=== PATIENT | male | born 1970 | race Caucasian/White ===

== ENCOUNTER 2016-10-10 14:16 | Emergency (ER) | payer OTHER ==
[~2016-10-10] VITALS: Ht 185.4 cm; Wt 118.4 kg
[~2016-10-10 14:16] MED LIST: AMIT50TA PO; CIPR500T89 PO; CYCL10TA PO; FLAG500T PO; NAPR500T2 PO; NORC5TAB PO; OMEP20CA3 PO; PERC7.5T12 PO; SIME40TA PO; VITA100037 PO
[2016-10-10] MEDS ORDERED: ONDANSETRON 4MG/2ML VIAL (J2405) IV ONE (14:45)
[2016-10-10] MEDS ORDERED: NS 1,000 ML IV ONE (14:45)
[2016-10-10] MEDS ORDERED: ASPIRIN 81 MG CHEW TABLET PO ONE (14:45)
[2016-10-10] MEDS ORDERED: MORPHINE 4 MG/ML 1ML SYRINGE IV PRN (14:45)
[2016-10-10 15:09] LABS: BASO # 0.1 K/mm3 (0.0-0.2); BASO % 0.7 % (0.0-1.0); EOS # 0.2 K/mm3 (0.0-0.50); EOS % 1.9 % (0.0-3.0); LARGE UNSTAINED CELL # 0.1 K/mm3 (0.0-0.4); LARGE UNSTAINED CELL % 0.9 % (0.0-4.0); LYMPH # 1.9 K/mm3 (1.5-4.5); LYMPH % 19.9 % (24.0-44.0); MEAN CORPUSCULAR HEMOGLOBIN 27.8 pg (27.0-33.0); MEAN CORPUSCULAR HGB CONC 33.3 g/dl (32.0-36.5); MEAN CORPUSCULAR VOLUME 83.5 fl (80.0-96.0); MONO # 0.5 K/mm3 (0.0-0.8); MONO % 5.8 % (0.0-5.0); NEUTROPHILS # 6.5 K/mm3 (1.8-7.7); NEUTROPHILS % 70.9 % (36.0-66.0); PLATELET COUNT, AUTOMATED 261 k/mm3 (150-450); WHITE BLOOD COUNT 9.1 K/mm3 (4.0-10.0)
[2016-10-10 15:31] LABS: ALBUMIN/GLOBULIN RATIO 1.21 (1.00-1.93); ALKALINE PHOSPHATASE 46 U/L (45-117); ALT/SGPT 33 U/L (12-78); ANION GAP 8 MEQ/L (8-16); AST/SGOT 27 U/L (15-37); BILIRUBIN,DIRECT 0.1 MG/DL (0.0-0.2); BILIRUBIN,TOTAL 0.4 MG/DL (0.2-1.0); BLOOD UREA NITROGEN 17 MG/DL (7-18); CALCIUM LEVEL 8.7 MG/DL (8.5-10.1); CARBON DIOXIDE LEVEL 24 MEQ/L (21-32); CHLORIDE LEVEL 106 MEQ/L (98-107); CREATININE FOR GFR 1.11 MG/DL (0.70-1.30); FREE T4 1.45 NG/DL (0.76-1.46); GLOMERULAR FILTRATION RATE > 60.0 (>60); GLUCOSE, FASTING 107 MG/DL (70-105); POTASSIUM SERUM 3.8 MEQ/L (3.5-5.1); SODIUM LEVEL 138 MEQ/L (136-145); TOTAL PROTEIN 7.3 GM/DL (6.4-8.2)
[2016-10-10] MEDS ORDERED: ISOVUE-370 76% 100ML VIAL (Q9967) As Ordered ONE (15:59)
[2016-10-10 17:41] VITALS: BP 119/84
[2016-10-10] MEDS ORDERED: ASPI81TA85 PO (18:00)
[2016-10-10] MEDS ORDERED: OMEP40CA2 PO (18:05)
--- NOTE | 2016-10-11 06:40 | REP ---
Chest pain. COMPARISON: 08/25/2015. The technique utilized in obtaining the radiograph has magnified the cardiac silhouette and accentuated the interstitial markings. Cardiomediastinal silhouette and lung magana are unchanged. No acute patchy parenchymal opacities or pleural effusions have developed. There is no change in the osseous structures. IMPRESSION: Stable chest without evidence of acute cardiopulmonary disease. Signed by Wali May DO 10/11/2016 03:40 P
--- NOTE | 2016-10-11 07:01 | REP ---
Chest pain. No priors. CONTRAST: 100 mL Isovue 370. There is excellent visualization of the pulmonary arterial vasculature. There are no focal filling defects present that would be considered consistent with pulmonary emboli. There is no mediastinal or hilar adenopathy. There are no pleural or pericardial effusions. The imaged upper abdomen and imaged osseous structures are within normal limits. The thoracic aorta is within normal limits. Evaluation of the lung magana show a vague nodule in the right upper lobe which measures 4 mm. IMPRESSION: No pulmonary embolus. 4 mm right upper lobe nodule. According to the revised Fleischner Society criteria, this represents a category 2 lesion for which 1 year followup is recommended. Signed by Wali May DO 10/11/2016 03:44 P
--- NOTE | 2016-10-12 04:44 | ECGEPIP ---
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
--- NOTE | 2016-10-12 04:45 | ECGEPIP ---
Stationary ECG Study 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
--- NOTE | 2016-10-13 09:17 | ED PDOC ---
Post-Departure Follow-Up cta faxed formal report to dr norton. also [facility] faxed formal report for fu Charla Sorenson MD Oct 13, 2016 09:17
== END 2016-10-10 18:19 | disposition home or self-care (01) ==
LOC: M ED 14:58
DX: R07.9 Chest pain, unspecified (principal); M54.9 Dorsalgia, unspecified; R91.1 Solitary pulmonary nodule; F32.9 Major depressive disorder, single episode, unspecified; F41.9 Anxiety disorder, unspecified; M50.30 Other cervical disc degeneration, unspecified cervical region; M51.9 Unspecified thoracic, thoracolumbar and lumbosacral intervertebral disc disorder; F17.200 Nicotine dependence, unspecified, uncomplicated; Z82.49 Family history of ischemic heart disease and other diseases of the circulatory system
CPT/HCPCS: 36415; 71010; 71275; 80048; 80076; 82550; 82553; 83690; 84439; 84443; 85025; 85379; 93005; 93041; 94760; 96361; 96374; 96375; 99285; J2405; Q9967

== ENCOUNTER 2017-03-10 07:58 | Emergency (ER) | payer OTHER ==
[~2017-03-10] VITALS: Ht 185.4 cm; Wt 120.5 kg
[~2017-03-10 07:58] MED LIST changes: +ASPI81TA85 PO; +OMEP40CA2 PO; -VITA100037 PO; +VITA100067 PO
[2017-03-10] MEDS ORDERED: AZEL0.1S3 (08:07)
[2017-03-10] MEDS ORDERED: KETOROLAC 30 MG/ML VIAL (J1885) IV ONE (08:30)
[2017-03-10 08:53] LABS: BASO % 0.3 % (0.0-1.0); EOS % 0.5 % (0.0-3.0); LARGE UNSTAINED CELL # 0.1 K/mm3 (0.0-0.4); LARGE UNSTAINED CELL % 1.8 % (0.0-4.0); LYMPH # 0.8 K/mm3 (1.5-4.5); LYMPH % 9.7 % (24.0-44.0); MEAN CORPUSCULAR HEMOGLOBIN 27.9 pg (27.0-33.0); MEAN CORPUSCULAR HGB CONC 33.3 g/dl (32.0-36.5); MEAN CORPUSCULAR VOLUME 83.7 fl (80.0-96.0); MONO # 0.5 K/mm3 (0.0-0.8); MONO % 6.2 % (0.0-5.0); NEUTROPHILS # 6.3 K/mm3 (1.8-7.7); NEUTROPHILS % 81.4 % (36.0-66.0); PLATELET COUNT, AUTOMATED 302 k/mm3 (150-450); RED CELL DISTRIBUTION WIDTH 13.4 % (11.5-14.5); WHITE BLOOD COUNT 7.7 K/mm3 (4.0-10.0)
--- NOTE | 2017-03-10 09:03 | REP ---
Clinical: Left renal colic. Comparison: 07/15/2012. Findings: Mild acute left-sided obstructive uropathy including perinephric stranding, hydroureteronephrosis and periureteral stranding with 2 mm and 4 mm calculi in the distal left ureter (images 119 - 122). The right kidney demonstrates 2 mm nonobstructing renal stone. The bladder is unremarkable. Prostate gland is within normal limits. Pericolonic stranding and adenopathy along with possible colonic mass lesion is identified at the hepatic flexure/proximal transverse colon (images 49 - 67) which is concerning for neoplasm requires attention. Liver, spleen, pancreas, gallbladder, bilateral adrenal glands and the remainder of the small large bowel is grossly unremarkable. Normal terminal ileum and appendix identified in the right lower quadrant. Sigmoid diverticula noted without acute diverticulitis. Pelvis demonstrates a fat containing right inguinal hernia. Bladder and prostate gland are within normal limits. No ascites. No free air. Abdominal aorta without aneurysm. Musculoskeletal structures demonstrate degenerative changes. Impression: 1. Acute left-sided obstructive uropathy with 2 mm and 4 mm obstructing calculi in the distal left ureter along with 2 mm nonobstructing right renal stone. 2. Findings described above involving the hepatic flexure/proximal transverse colon concerning for neoplasm and requires further investigation. Differential diagnosis would include focal colitis. Signed by Young Aguilera MD 03/10/2017 08:55 A
[2017-03-10 09:16] LABS: ALBUMIN 3.7 GM/DL (3.2-5.2); ALBUMIN/GLOBULIN RATIO 0.95 (1.00-1.93); ALKALINE PHOSPHATASE 53 U/L (45-117); ALT/SGPT 24 U/L (12-78); AMYLASE 46 U/L (25-115); ANION GAP 10 MEQ/L (8-16); AST/SGOT 18 U/L (15-37); BILIRUBIN,DIRECT < 0.1 MG/DL (0.0-0.2); BILIRUBIN,TOTAL 0.4 MG/DL (0.2-1.0); BLOOD UREA NITROGEN 21 MG/DL (7-18); CALCIUM LEVEL 8.9 MG/DL (8.5-10.1); CARBON DIOXIDE LEVEL 24 MEQ/L (21-32); CHLORIDE LEVEL 109 MEQ/L (98-107); GLOMERULAR FILTRATION RATE 49.6 (>60); GLUCOSE, FASTING 116 MG/DL (70-105); POTASSIUM SERUM 4.2 MEQ/L (3.5-5.1); SODIUM LEVEL 143 MEQ/L (136-145); TOTAL PROTEIN 7.6 GM/DL (6.4-8.2)
[2017-03-10] MEDS ORDERED: KETO10TAB PO (09:17)
[2017-03-10] MEDS ORDERED: FLOM5CAP PO (09:17)
[2017-03-10 09:38] LABS: YEAST LIKE CELL URINE AUTO SMALL
[2017-03-10] MEDS ORDERED: ZOFR4TAB3 PO (09:57)
[2017-03-10 09:58] VITALS: BP 134/75
[2017-03-11] MEDS ORDERED: ASPI1TAB PO (14:03)
[2017-03-11] MEDS ORDERED: OMEP20CA3 PO (14:16)
[2017-03-11] MEDS ORDERED: MULT1TAB10 PO (14:16)
[2017-03-25] MEDS ORDERED: FLON1SPR (08:37)
== END 2017-03-10 09:59 | disposition home or self-care (01) ==
LOC: M ED 07:58
DX: N20.1 Calculus of ureter (principal); R93.3 Abnormal findings on diagnostic imaging of other parts of digestive tract; E66.9 Obesity, unspecified; K21.9 Gastro-esophageal reflux disease without esophagitis; J30.2 Other seasonal allergic rhinitis; K85.90 Acute pancreatitis without necrosis or infection, unspecified; F17.200 Nicotine dependence, unspecified, uncomplicated; Z82.49 Family history of ischemic heart disease and other diseases of the circulatory system; Z79.899 Other long term (current) drug therapy
CPT/HCPCS: 36415; 74176; 80048; 80076; 81001; 82150; 83690; 85025; 96374; 99283; J1885

== ENCOUNTER 2017-03-14 13:17 | Outpatient (CLI) | payer OTHER ==
[~2017-03-14] VITALS: Ht 185.4 cm; Wt 114.8 kg
[~2017-03-14 13:17] MED LIST changes: +ASPI1TAB PO; +AZEL0.1S3; +FLOM5CAP PO; +KETO10TAB PO; +MULT1TAB10 PO; +ZOFR4TAB3 PO
[2017-03-14] MEDS ORDERED: NS 1,000 ML IV SCH (13:30)
[2017-03-14] MEDS ORDERED: LIDOCAINE 2% INJ 100 MG/5 ML SDV (FOR ANES.) As Ordered ONE (14:58)
[2017-03-14] MEDS ORDERED: PROPOFOL 200 MG/20 ML VIAL As Ordered ONE ×3 (14:58→15:28)
--- NOTE | 2017-03-14 15:29 | ROOR ---
Patient Name: Waldemar Collins Procedure Date: 03/14/2017 2:58 PM Date of : 1970 Age: 46 Room: [facility] Gender: Male Note Status: Finalized Procedure: Colonoscopy Indications: Abnormal CT of the GI tract Providers: DO Yumiko De La Paz MD: Domingo Luque MD Requesting Provider: Medicines: Propofol per Anesthesia Complications: No immediate complications. Procedure: Pre-Anesthesia Assessment: - Prior to the procedure, a History and Physical was performed, and patient medications and allergies were reviewed. The patient is competent. The risks and benefits of the procedure and the sedation options and risks were discussed with the patient. All questions were answered and informed consent was obtained. Patient identification and proposed procedure were verified by the physician, the nurse, the head of quality and the gate technician in the endoscopy suite. Mental Status Examination: alert and oriented. Airway Examination: normal oropharyngeal airway and neck mobility. Respiratory Examination: clear to auscultation. CV Examination: normal. Prophylactic Antibiotics: The patient does not require prophylactic antibiotics. Prior Anticoagulants: The patient has taken no previous anticoagulant or antiplatelet agents. ASA Grade Assessment: II - A patient with mild systemic disease. After reviewing the risks and benefits, the patient was deemed in satisfactory condition to undergo the procedure. The anesthesia plan was to use monitored anesthesia care (MAC). Immediately prior to administration of medications, the patient was re-assessed for adequacy to receive sedatives. The heart rate, respiratory rate, oxygen saturations, blood pressure, adequacy of pulmonary ventilation, and response to care were monitored throughout the procedure. The physical status of the patient was re-assessed after the procedure. The Colonoscope was introduced through the anus and advanced to the cecum, identified by appendiceal orifice and ileocecal valve. The colonoscopy was performed without difficulty. The patient tolerated the procedure well. Findings: Multiple small-mouthed diverticula were found in the sigmoid colon. Two semi-pedunculated polyps were found in the sigmoid colon. The polyps were 5 to 8 mm in size. These polyps were removed with a cold biopsy forceps. Resection and retrieval were complete. Estimated blood loss was minimal. A fungating partially obstructing large mass was found at the hepatic flexure. The mass was circumferential. Oozing was present. Biopsies were taken with a cold forceps for histology. Area was tattooed with an injection of 4 mL of Spot (carbon black). The exam was otherwise without abnormality on direct and retroflexion views. Impression: - Diverticulosis in the sigmoid colon. - Two 5 to 8 mm polyps in the sigmoid colon, removed with a cold biopsy forceps. Resected and retrieved. - Likely malignant partially obstructing tumor at the hepatic flexure. Biopsied. Tattooed. - The examination was otherwise normal on direct and retroflexion views. Recommendation: - Patient has a contact number available for emergencies. The signs and symptoms of potential delayed complications were discussed with the patient. Return to normal activities tomorrow. Written discharge instructions were provided to the patient. - Repeat colonoscopy in 1 year for surveillance based on pathology results. - Return to my office in 3 days. - Await pathology results. Khang Mckee DO 03/14/2017 3:28:34 PM This report has been signed electronically. Number of Addenda: 0 Note Initiated On: 03/14/2017 2:58 PM Estimated Blood Loss: Estimated blood loss was minimal.
[2017-03-14 15:45] VITALS: BP 137/74
[2017-03-25] MEDS ORDERED: FLON1SPR (08:37)
== END 2017-03-14 15:53 | disposition home or self-care (01) ==
LOC: M OPP 13:17 → EDSTATUS 14:45 → M OPP 15:53
PROVIDERS: ATTEND Surgery
DX: R93.3 Abnormal findings on diagnostic imaging of other parts of digestive tract (principal); D12.5 Benign neoplasm of sigmoid colon; K21.9 Gastro-esophageal reflux disease without esophagitis; D49.0 Neoplasm of unspecified behavior of digestive system; K57.30 Diverticulosis of large intestine without perforation or abscess without bleeding; K57.92 Diverticulitis of intestine, part unspecified, without perforation or abscess without bleeding; R10.9 Unspecified abdominal pain; R63.4 Abnormal weight loss; R12 Heartburn; K44.9 Diaphragmatic hernia without obstruction or gangrene; M19.90 Unspecified osteoarthritis, unspecified site; M54.5 Low back pain; F41.9 Anxiety disorder, unspecified; F32.9 Major depressive disorder, single episode, unspecified; N40.1 Benign prostatic hyperplasia with lower urinary tract symptoms; J45.909 Unspecified asthma, uncomplicated; N20.0 Calculus of kidney; F17.210 Nicotine dependence, cigarettes, uncomplicated; Z79.899 Other long term (current) drug therapy; Z79.82 Long term (current) use of aspirin

== ENCOUNTER → 2017-03-22 | Outpatient (CLI) | payer OTHER ==
[~2017-03-22] MED LIST changes: +FLON1SPR; +GASTROGRAFIN SOLUTION 30ML (Q9963) As Ordered ONE; +ISOVUE-370 76% 100ML VIAL (Q9967) As Ordered ONE; +METR1TAB66; +NEOM50TA; +NORCOTAB PO; +SENN1TAB2 PO
--- NOTE | 2017-03-23 04:13 | REP ---
Clinical: Colon cancer. Comparison: 03/10/2017 Technique: Axial contrast enhanced images from the lung bases to the pubic symphysis using oral and 100 ml Isovue 370 intravenous contrast material with precontrast and delayed images of the abdomen as well as coronal and sagittal re-formations. Findings: Lung bases are clear. Visualized heart and pericardium normal. Marked irregular mural thickening involving the hepatic flexure of colon with surrounding inflammatory stranding and small adjacent lymph nodes are appreciated. Along the inferior margin of the hepatic flexure is a 2.8 cm somewhat focal low density area concerning for area of necrosis or abscess. Liver demonstrates multiple low density foci measuring up to 2.5 cm diameter concerning for metastatic disease. Spleen, pancreas, gallbladder, bilateral adrenal glands and right kidney are normal. Left kidney demonstrates mild hydronephrosis and multiple obstructing calculi in the distal left ureter which measure up to 4.5 mm. Colonic/sigmoid diverticulosis with mural thickening to the sigmoid colon suggests chronic change. Normal terminal ileum and appendix are identified in the right lower quadrant. Pelvis demonstrates normal bladder and age appropriate prostate/seminal vesicles. No pelvic fluid or ascites. No retroperitoneal adenopathy. Abdominal aorta and vasculature appear relatively normal. Musculoskeletal structures are intact. Impression: 1. Significant irregular mural thickening with pericolonic inflammatory stranding, small lymph nodes, and possible small necrotic focus involving the hepatic flexure of the colon. Differential diagnosis includes malignancy as well as colitis. Multiple low-density lesions within the liver measuring up to 2.5 cm concerning for metastatic disease. 2. Mild left hydronephrosis with multiple distal left ureteral calculi measuring up to 4.5 mm. 3. Sigmoid diverticulosis and mural thickening suggesting sequelae of chronic colitis/diverticulitis. Signed by Young Aguilera MD 03/23/2017 04:05 A
== END ==
LOC: M LAB 13:42 → M RAD 13:42
PROVIDERS: ATTEND Surgery
DX: C18.3 Malignant neoplasm of hepatic flexure (principal); N13.2 Hydronephrosis with renal and ureteral calculous obstruction; K57.30 Diverticulosis of large intestine without perforation or abscess without bleeding
CPT/HCPCS: 36415; 74178; 82378; Q9963; Q9967

== ENCOUNTER → 2017-03-24 | Outpatient (CLI) | payer OTHER ==
[~2017-03-24] MED LIST changes: -GASTROGRAFIN SOLUTION 30ML (Q9963) As Ordered ONE; -ISOVUE-370 76% 100ML VIAL (Q9967) As Ordered ONE
[2017-03-24 20:50] LABS: BASO # 0.1 10^3/uL (0.0-0.2); BASO % 0.5 % (0.0-1.0); EOS # 0.1 10^3/uL (0.0-0.50); EOS % 0.7 % (0.0-3.0); IMMATURE GRANULOCYTE % 0.4 % (0-0); LYMPH # 2.2 10^3/uL (1.5-4.5); LYMPH % 17.1 % (24.0-44.0); MEAN CORPUSCULAR HEMOGLOBIN 26.4 pg (27.0-33.0); MEAN CORPUSCULAR VOLUME 82.4 fl (80.0-96.0); MONO # 0.9 10^3/uL (0.0-0.8); MONO % 6.8 % (0.0-5.0); NEUTROPHILS # 9.5 10^3/uL (1.8-7.7); NEUTROPHILS % 74.5 % (36.0-66.0); PLATELET COUNT, AUTOMATED 484 10^3/uL (150-450); RED CELL DISTRIBUTION WIDTH 13.4 % (11.5-14.5); WHITE BLOOD COUNT 12.7 10^3/uL (4.0-10.0)
[2017-03-24 20:53] LABS: ALBUMIN 3.5 GM/DL (3.2-5.2); ALKALINE PHOSPHATASE 52 U/L (45-117); ALT/SGPT 23 U/L (12-78); ANION GAP 9 MEQ/L (8-16); AST/SGOT 15 U/L (15-37); BILIRUBIN,TOTAL 0.5 MG/DL (0.2-1.0); BLOOD UREA NITROGEN 16 MG/DL (7-18); CALCIUM LEVEL 9.4 MG/DL (8.5-10.1); CARBON DIOXIDE LEVEL 28 MEQ/L (21-32); CHLORIDE LEVEL 104 MEQ/L (98-107); CREATININE FOR GFR 0.96 MG/DL (0.70-1.30); GLOMERULAR FILTRATION RATE > 60.0 (>60); GLUCOSE, FASTING 83 MG/DL (70-105); POTASSIUM SERUM 4.3 MEQ/L (3.5-5.1); SODIUM LEVEL 141 MEQ/L (136-145); TOTAL PROTEIN 7.4 GM/DL (6.4-8.2)
[2017-03-24 20:59] LABS: ADD MORPHOLOGY? NO
--- NOTE | 2017-03-25 08:37 | REP ---
Clinical: Chronic cough . Comparison: 08/25/2015 . Technique: PA and lateral. Findings: The mediastinum and cardiac silhouette are normal. The lung magana are clear and without acute consolidation, effusion, or pneumothorax. The skeletal structures are intact and normal. Impression: 1. No acute cardiopulmonary process. Signed by Young Aguilear MD 03/25/2017 08:28 A
== END ==
LOC: M ADAMS 13:46
PROVIDERS: ATTEND Family Medicine
DX: R05 Cough (principal)

== ENCOUNTER → 2017-03-31 | Outpatient (REF) | payer OTHER ==
[2017-03-31 21:14] LABS: BASO # 0.1 10^3/uL (0.0-0.2); BASO % 0.6 % (0.0-1.0); EOS # 0.2 10^3/uL (0.0-0.50); EOS % 1.5 % (0.0-3.0); IMMATURE GRANULOCYTE % 0.3 % (0-0); LYMPH # 2.5 10^3/uL (1.5-4.5); LYMPH % 24.4 % (24.0-44.0); MEAN CORPUSCULAR HEMOGLOBIN 25.9 pg (27.0-33.0); MEAN CORPUSCULAR HGB CONC 31.4 g/dl (32.0-36.5); MEAN CORPUSCULAR VOLUME 82.5 fl (80.0-96.0); MONO # 0.8 10^3/uL (0.0-0.8); MONO % 7.7 % (0.0-5.0); NEUTROPHILS # 6.7 10^3/uL (1.8-7.7); NEUTROPHILS % 65.5 % (36.0-66.0); PLATELET COUNT, AUTOMATED 507 10^3/uL (150-450); RED CELL DISTRIBUTION WIDTH 13.6 % (11.5-14.5); WHITE BLOOD COUNT 10.2 10^3/uL (4.0-10.0)
[2017-03-31 21:15] LABS: ADD MORPHOLOGY? NO
== END ==
LOC: M SFHCADAM 16:25
PROVIDERS: ATTEND Family Medicine
DX: R05 Cough (principal)

== ENCOUNTER 2017-04-06 06:44 | Inpatient (IN) | payer OTHER ==
[~2017-04-06] VITALS: Ht 188 cm; Wt 112.3 kg
[~2017-04-06 06:44] MED LIST changes: -METR1TAB66; -NEOM50TA; -NORCOTAB PO; -SENN1TAB2 PO
[2017-04-06] MEDS ORDERED: LR 1,000 ML IV SCH ×2 (07:00→14:15)
[2017-04-06] MEDS ORDERED: METR1TAB66 (07:55)
[2017-04-06] MEDS ORDERED: NEOM50TA (07:55)
[2017-04-06] MEDS ORDERED: ALBUTEROL SULFATE 2.5 MG/0.5 ML INH NEB SOLN INH ONE (08:15)
[2017-04-06] MEDS ORDERED: ERTAPENEM SODIUM 1 GM in NS MINI-BAG PLUS 50 ML IV ONE (08:30)
[2017-04-06] MEDS ORDERED: BUPIVACAINE/EPIN 0.25% 30 ML VIAL As Ordered ONE (08:39)
[2017-04-06] MEDS ORDERED: LIDOCAINE 2% INJ 100 MG/5 ML SDV (FOR ANES.) As Ordered ONE (08:46)
[2017-04-06] MEDS ORDERED: PROPOFOL 200 MG/20 ML VIAL As Ordered ONE ×2 (08:46→09:14)
[2017-04-06] MEDS ORDERED: ROCURONIUM BROMIDE 50 MG/5 ML VIAL/SYRINGE As Ordered ONE ×2 (08:47→11:15)
[2017-04-06] MEDS ORDERED: ONDANSETRON 4MG/2ML VIAL (J2405) As Ordered ONE (08:47)
[2017-04-06] MEDS ORDERED: fentaNYL 250 MCG/5 ML INJECTION (J3010) As Ordered ONE (08:49)
[2017-04-06] MEDS ORDERED: MIDAZOLAM INJ 2 MG/2 ML VIAL (J2250) As Ordered ONE (08:49)
[2017-04-06] MEDS ORDERED: HYDROmorphone HCL 2 MG/ML 1ML VIAL (J1170) As Ordered ONE (10:26)
[2017-04-06] MEDS ORDERED: NEOSTIGMINE 10 MG/10 ML VIAL (J2710) As Ordered ONE (13:07)
[2017-04-06] MEDS ORDERED: GLYCOPYRROLATE INJ 0.2 MG/ML 2 ML VIAL As Ordered ONE (13:07)
[2017-04-06] MEDS: HEPARIN SOD (PORCINE) 5000 UNITS/ML VIAL SC SCH ×2 (14:00→21:35)
[2017-04-06] MEDS ORDERED: fentaNYL 100 MCG/2 ML INJECTION (J3010) IV PRN (14:15)
[2017-04-06] MEDS ORDERED: METOCLOPRAMIDE INJ 10MG/2ML VIAL (J2765) IV PRN (14:15)
[2017-04-06] MEDS ORDERED: ACETAMINOPHEN TAB 650MG DOSE (2X325MG) PO PRN (14:15)
[2017-04-06] MEDS ORDERED: ONDANSETRON 4MG/2ML VIAL (J2405) IV PRN (14:15)
[2017-04-06] MEDS ORDERED: PERCOCET 5MG/325MG TAB PO PRN (14:15)
[2017-04-06] MEDS: KETOROLAC 30 MG/ML VIAL (J1885) IV PRN ×2 (14:30→20:38)
[2017-04-06] MEDS: MORPHINE 2 MG/ML 1ML SYRINGE IV PRN ×6 (14:40→23:43)
[2017-04-06 16:00] VITALS: BP 135/80
[2017-04-06 16:30] VITALS: BP 132/85
[2017-04-06] MEDS: LR 1,000 ML IV SCH (17:00)
[2017-04-06 17:30] VITALS: BP 137/84
[2017-04-06 18:30] VITALS: BP 141/90
[2017-04-06] MEDS: NORCO, ANEXSIA 5/325MG TABLET (HYDROcodone/ACETAMINOPHEN) PO PRN (19:47)
[2017-04-06] MEDS: SENOKOT S TAB PO SCH (19:52)
[2017-04-06] MEDS: ONDANSETRON 4MG/2ML VIAL (J2405) IV PRN (20:03)
[2017-04-06 22:00] VITALS: BP 133/84
[2017-04-07 02:00] VITALS: BP 142/81
[2017-04-07] MEDS: MORPHINE 2 MG/ML 1ML SYRINGE IV PRN ×7 (02:36→20:04)
[2017-04-07] MEDS: LR 1,000 ML IV SCH ×4 (02:40→21:14)
[2017-04-07] MEDS: HEPARIN SOD (PORCINE) 5000 UNITS/ML VIAL SC SCH ×3 (05:32→21:13)
[2017-04-07 06:00] VITALS: BP 138/84
[2017-04-07 06:55] LABS: MEAN CORPUSCULAR HEMOGLOBIN 25.6 pg (27.0-33.0); MEAN CORPUSCULAR HGB CONC 31.3 g/dl (32.0-36.5); RED CELL DISTRIBUTION WIDTH 13.8 % (11.5-14.5); WHITE BLOOD COUNT 8.3 10^3/uL (4.0-10.0)
[2017-04-07 07:12] LABS: ANION GAP 7 MEQ/L (8-16); BLOOD UREA NITROGEN 16 MG/DL (7-18); CALCIUM LEVEL 8.3 MG/DL (8.5-10.1); CARBON DIOXIDE LEVEL 30 MEQ/L (21-32); CHLORIDE LEVEL 104 MEQ/L (98-107); CREATININE FOR GFR 0.88 MG/DL (0.70-1.30); GLOMERULAR FILTRATION RATE > 60.0 (>60); GLUCOSE, FASTING 107 MG/DL (70-105); MAGNESIUM LEVEL 2.2 MG/DL (1.8-2.4); POTASSIUM SERUM 4.1 MEQ/L (3.5-5.1); SODIUM LEVEL 141 MEQ/L (136-145)
--- NOTE | 2017-04-07 08:09 | RO ---
DATE OF PROCEDURE: 04/06/2017 PREOPERATIVE DIAGNOSIS: Hepatic flexure adenocarcinoma. POSTOPERATIVE DIAGNOSIS: Hepatic flexure adenocarcinoma PROCEDURE PERFORMED: Laparoscopic right hemicolectomy. SURGEON: Dr. Khang Mckee TORCH STRAIGHTENER AND HEATER: Dr. Enmanuel Martinez. ANESTHESIA: General. ESTIMATED BLOOD LOSS: 200 mL. COMPLICATIONS: None. INDICATIONS FOR PROCEDURE: The patient is a 46-year-old male who presented to the emergency room with history of abdominal pain found to have kidney stones and incidentally a right colon mass. He underwent urgent colonoscopy a couple of days later and found that there was a large mass that came back positive for adenocarcinoma. He is coming in today for resection. Risks, benefits of the procedure not limited but including bleeding, infection, hernia formation, damage to surrounding structures, anastomotic leak and possible need for further surgery was discussed detail. The patient informed was obtained and the procedure was planned. DESCRIPTION OF PROCEDURE: The patient brought back to operating room #8. After sufficient sedation, the abdomen sterilely prepped and draped. A Terrell catheter was placed. Next a time-out was done to confirm proper patient and proper procedure. Following that a 5 mm incision made over the left lower quadrant and a Veress needle was inserted and the abdomen was insufflated to 250 mmHg. Next the Veress needle was removed and a 5 mm Infusaport was used to gain access to the abdomen. Once the abdomen was entered a 10 mm port was placed supraumbilically in the midline, two 5 mm ports in the left midabdomen and left lower quadrant. Starting around the hepatic flexure the omentum was carefully taken down with the gastrocolic ligament up around the adhesions were taken off the gallbladder as well as all the peritoneal reflection of the ascending colon. Once all of this was completed, the appendix was elevated superiorly, mesoappendix was carefully dissected through as well as the ascending colon mesentery to mobilize as much of the colon as possible. The colon was carefully mobilized free from the duodenum superiorly. However, there were dense adhesions just inferior to the duodenum that made it too complicated to dissect completely laparoscopically. Once all of the lateral attachments were all taken down and the mid transverse colon was all completely freed up and the terminal ileum was completely freed from his mesentery, a midline incision was made from the 10 mm port site superiorly for about 12 cm. Once that was done went in from the outside, were able to create a window in the mesocolon of the mid transverse colon and was able to dissect through and transect the colon using a GIORGI 100 stapler. The same process was done with the terminal ileum coming from both proximal and distal carefully through the mesentery. We were able free it up completely. There were dense adhesions posteriorly. However, there was no involvement with any significant structures. The entire mass appeared to be removed intact without any significant vascular or organ injuries. Once the mass was completely removed the abdomen was irrigated to look for any signs of bleeding. There did not appear to be any. Next, the terminal ileum was brought up to the mid transverse colon. A hfvi-ih-dfmy anastomosis was done using a GIORGI 100 stapler. This was then oversewn with #3-0 silk sutures. A layer of Tisseel was then placed along the staple lines. The opening in the mesentery was then approximated with a running #0 Vicryl suture. A #19-Lithuanian Fracisco drain was then placed along the anastomosis, brought out through the 5 mm incision inferior to the umbilicus in the midline. This was sutured in place with #3-0 silk suture. Next the fascia was closed with two looped running PDS sutures tied the middle. Skin incisions were all closed with mercy. The abdomen was then cleaned and dried, 4x4s and tape were applied thus ending procedure.
[2017-04-07] MEDS ORDERED: NS 1,000 ML IV ONE (08:45)
[2017-04-07] MEDS: ONDANSETRON 4MG/2ML VIAL (J2405) IV PRN ×2 (08:54→14:59)
[2017-04-07] MEDS: SENOKOT S TAB PO SCH ×2 (09:09→21:12)
[2017-04-07] MEDS: PANTOPRAZOLE 40MG TAB (PROTONIX) PO SCH (09:09)
[2017-04-07] MEDS: ERTAPENEM SODIUM 1 GM in NS MINI-BAG PLUS 50 ML IV SCH (09:09)
[2017-04-07 10:00] VITALS: BP 140/82
--- NOTE | 2017-04-07 10:57 | REP ---
KUB: Two views. HISTORY: NG placement. FINDINGS: There are midline laparotomy mercy. There are right upper quadrant clips and left abdominal mercy. A surgical drain is noted in place to the right of midline across the mid abdomen. Air is seen in the stomach as well as in several loops of small intestine in the right abdomen. It is my understanding this patient is status post right hemicolectomy. No nasogastric tube is visible on these radiographs. Signed by Enrrique Gray MD 04/07/2017 11:59 A
[2017-04-07] MEDS: KETOROLAC 30 MG/ML VIAL (J1885) IV PRN ×2 (10:58→23:26)
[2017-04-07 14:00] VITALS: BP 146/88
[2017-04-07] MEDS: NORCO, ANEXSIA 5/325MG TABLET (HYDROcodone/ACETAMINOPHEN) PO PRN (21:13)
[2017-04-07 22:00] VITALS: BP 155/89
[2017-04-08 02:00] VITALS: BP 142/87
[2017-04-08] MEDS: HEPARIN SOD (PORCINE) 5000 UNITS/ML VIAL SC SCH ×3 (05:20→21:04)
[2017-04-08] MEDS: LR 1,000 ML IV SCH (05:21)
[2017-04-08 06:00] VITALS: BP 148/85
[2017-04-08 06:47] LABS: MEAN CORPUSCULAR HEMOGLOBIN 25.7 pg (27.0-33.0); MEAN CORPUSCULAR HGB CONC 31.3 g/dl (32.0-36.5); MEAN CORPUSCULAR VOLUME 82.1 fl (80.0-96.0); RED CELL DISTRIBUTION WIDTH 13.6 % (11.5-14.5); WHITE BLOOD COUNT 7.4 10^3/uL (4.0-10.0)
[2017-04-08 07:11] LABS: ANION GAP 5 MEQ/L (8-16); BLOOD UREA NITROGEN 14 MG/DL (7-18); CARBON DIOXIDE LEVEL 32 MEQ/L (21-32); CHLORIDE LEVEL 105 MEQ/L (98-107); CREATININE FOR GFR 0.83 MG/DL (0.70-1.30); GLOMERULAR FILTRATION RATE > 60.0 (>60); GLUCOSE, FASTING 85 MG/DL (70-105); MAGNESIUM LEVEL 2.1 MG/DL (1.8-2.4); POTASSIUM SERUM 4.2 MEQ/L (3.5-5.1); SODIUM LEVEL 142 MEQ/L (136-145)
[2017-04-08] MEDS: ERTAPENEM SODIUM 1 GM in NS MINI-BAG PLUS 50 ML IV SCH (08:15)
[2017-04-08] MEDS: PANTOPRAZOLE 40MG TAB (PROTONIX) PO SCH (08:15)
[2017-04-08] MEDS: SENOKOT S TAB PO SCH ×2 (08:15→21:04)
[2017-04-08] MEDS: KETOROLAC 30 MG/ML VIAL (J1885) IV PRN ×2 (10:25→16:30)
[2017-04-08 14:00] VITALS: BP 152/88
[2017-04-08] MEDS: NORCO, ANEXSIA 5/325MG TABLET (HYDROcodone/ACETAMINOPHEN) PO PRN ×2 (14:33→21:04)
[2017-04-08] MEDS: MORPHINE 2 MG/ML 1ML SYRINGE IV PRN (17:48)
[2017-04-08 21:15] VITALS: BP 133/77
[2017-04-09] MEDS: KETOROLAC 30 MG/ML VIAL (J1885) IV PRN ×4 (00:33→21:01)
[2017-04-09] MEDS: NORCO, ANEXSIA 5/325MG TABLET (HYDROcodone/ACETAMINOPHEN) PO PRN ×2 (04:21→13:10)
[2017-04-09] MEDS: HEPARIN SOD (PORCINE) 5000 UNITS/ML VIAL SC SCH ×3 (05:05→21:02)
[2017-04-09 05:20] VITALS: BP 131/87
[2017-04-09 06:28] LABS: MEAN CORPUSCULAR HEMOGLOBIN 25.6 pg (27.0-33.0); MEAN CORPUSCULAR HGB CONC 31.9 g/dl (32.0-36.5); MEAN CORPUSCULAR VOLUME 80.1 fl (80.0-96.0); RED CELL DISTRIBUTION WIDTH 13.5 % (11.5-14.5); WHITE BLOOD COUNT 8.3 10^3/uL (4.0-10.0)
[2017-04-09] MEDS: ONDANSETRON 4MG/2ML VIAL (J2405) IV PRN ×2 (06:30→13:36)
[2017-04-09 06:49] LABS: ANION GAP 8 MEQ/L (8-16); BLOOD UREA NITROGEN 17 MG/DL (7-18); CALCIUM LEVEL 8.9 MG/DL (8.5-10.1); CARBON DIOXIDE LEVEL 30 MEQ/L (21-32); CHLORIDE LEVEL 104 MEQ/L (98-107); CREATININE FOR GFR 0.84 MG/DL (0.70-1.30); GLOMERULAR FILTRATION RATE > 60.0 (>60); GLUCOSE, FASTING 98 MG/DL (70-105); MAGNESIUM LEVEL 2.1 MG/DL (1.8-2.4); POTASSIUM SERUM 3.9 MEQ/L (3.5-5.1); SODIUM LEVEL 142 MEQ/L (136-145)
[2017-04-09] MEDS: PANTOPRAZOLE 40MG TAB (PROTONIX) PO SCH (08:02)
[2017-04-09] MEDS: SENOKOT S TAB PO SCH ×2 (09:00→21:01)
[2017-04-09] MEDS: MORPHINE 2 MG/ML 1ML SYRINGE IV PRN ×3 (13:44→23:49)
[2017-04-09 14:00] VITALS: BP 145/94
[2017-04-09] MEDS ORDERED: MORPHINE 2 MG/ML 1ML SYRINGE IV PRN (15:00)
--- NOTE | 2017-04-09 16:54 | IPN ---
DATE: 04/09/2017 The patient is now 3 days postoperative from a laparoscopic right hemicolectomy for carcinoma. His pathology is still pending at this time. He had been using very little in the way of analgesics but this afternoon has noted increased pain with some pain up in his right shoulder and also some sharper pains in the right side of the abdomen. He has been able to be up walking around. He denies any nausea or vomiting. He has had two small loose bowel movements today but denies passage of much flatus. VITAL SIGNS: The patient has been afebrile over the last 24 hours. His respiratory rate is 18, and his pulse rate is 76 and is most recently recorded vital signs. Blood pressure is fine. Intake and output yesterday was 1985 and 1740 out. He has a drain in his lower abdomen that put out a liter yesterday and 620 mL so far today. PHYSICAL EXAMINATION: Patient is sitting in a chair at the bedside. He appears somewhat anxious and uncomfortable, though he says he feels better than he did even a few minutes ago, having just received a dose of Toradol. Skin is moist. Sclerae are anicteric. Heart exam shows a regular tachycardia of what I would estimate is approximately 120. Lungs are clear to auscultation. The abdomen shows a bandage along the midline in the epigastrium, which is dry. The drain exits from beneath this in the lower abdomen and contains some slightly turbid, very light yellow fluid. He has bowel sounds present in the abdomen. The right side shows some tenderness to palpation but not to an unexpected degree. Palpation on the left is relatively benign with no referred tenderness to the right. Laboratory studies this morning showed a white count of 8, hemoglobin of 11, hematocrit of 35, and a platelet count of 367. A basic medical profile this morning was normal with a glucose of 98. IMPRESSION: Overall, the patient appears to be doing well, now day 3 postoperative from his laparoscopic right hemicolectomy. He has been tolerating some liquids fairly well and was advanced to a regular diet earlier today. He has not taken much solid food and has been having some increased abdominal pain this afternoon. He is not really showing any signs of peritonitis. I think there is some degree of anxiety associated with the pain he has had today as well. He was provided additional doses of morphine if necessary, although he says the Toradol has been helping since that was received shortly ago. We advised him to be careful with his diet and to let his soft drinks go flat before intake. His laboratory studies are normal. PLAN: The patient was reassured that things seem to be going acceptably. His mild tachycardia I think is related to several factors, including anxiety and increased pain, and I will check back on him within the next couple of hours to see how things are progressing. MTDD
[2017-04-09 22:00] VITALS: BP 132/82
[2017-04-10] VITALS (12 sets, daily range): BP systolic 109–127; BP diastolic 68–89
[2017-04-10] MEDS: KETOROLAC 30 MG/ML VIAL (J1885) IV PRN (03:42)
[2017-04-10] MEDS: HEPARIN SOD (PORCINE) 5000 UNITS/ML VIAL SC SCH (05:45)
[2017-04-10] MEDS: MORPHINE 2 MG/ML 1ML SYRINGE IV PRN (05:49)
[2017-04-10 06:48] LABS: MEAN CORPUSCULAR HEMOGLOBIN 25.8 pg (27.0-33.0); MEAN CORPUSCULAR HGB CONC 32.6 g/dl (32.0-36.5); PLATELET COUNT, AUTOMATED 475 10^3/uL (150-450); RED CELL DISTRIBUTION WIDTH 13.8 % (11.5-14.5)
[2017-04-10 07:01] LABS: LEFT SHIFT POS FLAG; WHITE BLOOD COUNT 33.9 10^3/uL (4.0-10.0)
[2017-04-10 07:04] LABS: ADD MANUAL DIFFER YES; DIFF SLIDE NUMBER 68
[2017-04-10 07:05] LABS: ALBUMIN 2.2 GM/DL (3.2-5.2); ALBUMIN/GLOBULIN RATIO 0.56 (1.00-1.93); BILIRUBIN,TOTAL 0.6 MG/DL (0.2-1.0); CALCIUM LEVEL 8.2 MG/DL (8.5-10.1); CREATININE FOR GFR 1.36 MG/DL (0.70-1.30); GLOMERULAR FILTRATION RATE 59.8 (>60); POTASSIUM SERUM 4.4 MEQ/L (3.5-5.1); TOTAL PROTEIN 6.1 GM/DL (6.4-8.2)
[2017-04-10 07:36] LABS: BANDS 1 % (< 11)
[2017-04-10 07:39] LABS: MICROCYTOSIS 1+
[2017-04-10] MEDS ORDERED: PIPERACILLIN/TAZOBACTAM SOD 3.375 GM in D5W 50 ML IV ONE (07:45)
[2017-04-10] MEDS: NS 1,000 ML IV SCH ×2 (08:17→08:45)
[2017-04-10] MEDS ORDERED: ROCURONIUM BROMIDE 50 MG/5 ML VIAL/SYRINGE As Ordered ONE ×2 (08:52→10:12)
[2017-04-10] MEDS ORDERED: LIDOCAINE 2% INJ 100 MG/5 ML SDV (FOR ANES.) As Ordered ONE (08:52)
[2017-04-10] MEDS ORDERED: PROPOFOL 200 MG/20 ML VIAL As Ordered ONE (08:52)
[2017-04-10] MEDS ORDERED: MIDAZOLAM INJ 2 MG/2 ML VIAL (J2250) As Ordered ONE (08:52)
[2017-04-10] MEDS ORDERED: fentaNYL 250 MCG/5 ML INJECTION (J3010) As Ordered ONE (08:52)
[2017-04-10] MEDS: SENOKOT S TAB PO SCH (09:00)
[2017-04-10] MEDS: PANTOPRAZOLE 40MG TAB (PROTONIX) PO SCH (09:00)
--- NOTE | 2017-04-10 09:05 | ECGEPIP ---
Stationary ECG Study [facility] Test Date: 2017-04-09 Pat Name: JESSE DUBOIS Department: [id number] Room: [place] [address] Gender: M Manager Rn: : 1970 Requested By: Husam Mcghee Order Number: [id number] Reading MD: Christen Ochoa Measurements Intervals [place] Rate: 134 P: 32 [place]: 124 QRS: 5 QRSD: 86 T: 104 QT: 319 QTc: 478 Interpretive Statements SINUS TACHYCARDIA NEW ST DEVIATION AND MODERATE T-WAVE ABNORMALITY, CONSIDER LATERAL ISCHEMIA NEW C/W 10/10/16 Electronically Signed On 04-10-2017 9:04:45 EDT by Christen Ochoa
[2017-04-10] MEDS ORDERED: SUCCINYLCHOLINE 100 MG/5 ML SYRINGE (J0330) As Ordered ONE (09:38)
[2017-04-10] MEDS ORDERED: PHENYLephrine HCL 500 MCG/5 ML (100MCG/ML) SYRINGE (J2370) As Ordered ONE ×2 (09:49→10:52)
[2017-04-10] MEDS ORDERED: HYDROmorphone HCL 2 MG/ML 1ML VIAL (J1170) As Ordered ONE (10:47)
[2017-04-10] MEDS ORDERED: VECURONIUM BROMIDE 10 MG VIAL As Ordered ONE (10:47)
[2017-04-10] MEDS ORDERED: ONDANSETRON 4MG/2ML VIAL (J2405) As Ordered ONE (11:17)
[2017-04-10] MEDS ORDERED: GLYCOPYRROLATE INJ 0.2 MG/ML 2 ML VIAL As Ordered ONE (11:17)
[2017-04-10] MEDS ORDERED: NEOSTIGMINE 10 MG/10 ML VIAL (J2710) As Ordered ONE (11:17)
[2017-04-10] MEDS ORDERED: MORPHINE 1MG/ML IN 0.9% NACL 100ML IV BAG As Ordered ONE (11:43)
[2017-04-10] MEDS ORDERED: NALOXONE INJ 0.4 MG/1 ML VIAL (J2310) IV PRN (12:15)
[2017-04-10] MEDS ORDERED: EPIDURAL/PCA KEYS XX PRN (12:15)
[2017-04-10] MEDS ORDERED: ONDANSETRON 4MG/2ML VIAL (J2405) IV PRN ×2 (12:15→12:45)
[2017-04-10] MEDS ORDERED: NALBUPHINE HCL 10 MG/ML AMP (J2300) IV PRN (12:15)
[2017-04-10] MEDS ORDERED: diphenhydrAMINE INJ 50MG/ML VIAL (J1200) IV PRN (12:15)
[2017-04-10] MEDS: MORPHINE 1MG/ML IN 0.9% NACL 100ML IV BAG IV PRN (12:20)
[2017-04-10] MEDS: LR 1,000 ML IV SCH ×4 (12:30→22:10)
[2017-04-10] MEDS ORDERED: MORPHINE 2 MG/ML 1ML SYRINGE IV PRN (12:45)
[2017-04-10] MEDS ORDERED: LR 1,000 ML IV SCH (12:45)
[2017-04-10] MEDS ORDERED: fentaNYL 100 MCG/2 ML INJECTION (J3010) IV PRN (12:45)
[2017-04-10] MEDS: PIPERACILLIN/TAZOBACTAM SOD 3.375 GM in D5W 50 ML IV SCH ×2 (14:09→19:41)
[2017-04-10] MEDS: KETOROLAC 30 MG/ML VIAL (J1885) IV SCH ×2 (14:10→19:41)
[2017-04-10 18:21] LABS: MEAN CORPUSCULAR HEMOGLOBIN 25.7 pg (27.0-33.0); MEAN CORPUSCULAR VOLUME 80.2 fl (80.0-96.0); PLATELET COUNT, AUTOMATED 444 10^3/uL (150-450); RED CELL DISTRIBUTION WIDTH 13.8 % (11.5-14.5); WHITE BLOOD COUNT 29.8 10^3/uL (4.0-10.0)
[2017-04-10 18:24] LABS: LEFT SHIFT POS FLAG; POSITIVE DIFF POS FLAG; POSITIVE MORPH POS FLAG
[2017-04-10 18:25] LABS: ADD MANUAL DIFFER YES; DIFF SLIDE NUMBER 106
[2017-04-10 18:38] LABS: ANION GAP 7 MEQ/L (8-16); BLOOD UREA NITROGEN 25 MG/DL (7-18); CALCIUM LEVEL 7.5 MG/DL (8.5-10.1); CARBON DIOXIDE LEVEL 28 MEQ/L (21-32); CHLORIDE LEVEL 107 MEQ/L (98-107); GLOMERULAR FILTRATION RATE > 60.0 (>60); GLUCOSE, FASTING 119 MG/DL (70-105); POTASSIUM SERUM 4.8 MEQ/L (3.5-5.1); SODIUM LEVEL 142 MEQ/L (136-145)
[2017-04-10 19:35] LABS: BANDS 2 % (< 11)
[2017-04-10] MEDS: PANTOPRAZOLE 40MG INJ (PROTONIX) (C9113) IV SCH (20:30)
[2017-04-10] MEDS: ENOXAPARIN 40 MG/0.4 ML SYRINGE (J1650) SC SCH (22:10)
[2017-04-11] VITALS (13 sets, daily range): BP systolic 108–149; BP diastolic 65–89
[2017-04-11] MEDS: PIPERACILLIN/TAZOBACTAM SOD 3.375 GM in D5W 50 ML IV SCH ×4 (01:46→20:59)
[2017-04-11] MEDS: KETOROLAC 30 MG/ML VIAL (J1885) IV SCH ×2 (01:46→08:17)
[2017-04-11] MEDS ORDERED: SLF 3 ML SYR IV PRN (04:30)
[2017-04-11 04:31] LABS: BASO # 0.1 10^3/uL (0.0-0.2); BASO % 0.3 % (0.0-1.0); EOS # 0.4 10^3/uL (0.0-0.50); EOS % 1.7 % (0.0-3.0); IMMATURE GRANULOCYTE % 0.7 % (0-0); LYMPH # 1.2 10^3/uL (1.5-4.5); LYMPH % 5.3 % (24.0-44.0); MEAN CORPUSCULAR HEMOGLOBIN 25.4 pg (27.0-33.0); MEAN CORPUSCULAR HGB CONC 31.4 g/dl (32.0-36.5); MEAN CORPUSCULAR VOLUME 80.9 fl (80.0-96.0); MONO # 1.1 10^3/uL (0.0-0.8); MONO % 5.3 % (0.0-5.0); NEUTROPHILS # 18.7 10^3/uL (1.8-7.7); NEUTROPHILS % 86.7 % (36.0-66.0); PLATELET COUNT, AUTOMATED 380 10^3/uL (150-450); RED CELL DISTRIBUTION WIDTH 14.1 % (11.5-14.5); WHITE BLOOD COUNT 21.6 10^3/uL (4.0-10.0)
[2017-04-11 04:53] LABS: ALBUMIN/GLOBULIN RATIO 0.46 (1.00-1.93); ALKALINE PHOSPHATASE 72 U/L (45-117); ALT/SGPT 14 U/L (12-78); ANION GAP 5 MEQ/L (8-16); AST/SGOT 19 U/L (15-37); BILIRUBIN,TOTAL 0.7 MG/DL (0.2-1.0); BLOOD UREA NITROGEN 28 MG/DL (7-18); CALCIUM LEVEL 8.1 MG/DL (8.5-10.1); CARBON DIOXIDE LEVEL 30 MEQ/L (21-32); CHLORIDE LEVEL 107 MEQ/L (98-107); CREATININE FOR GFR 1.33 MG/DL (0.70-1.30); GLOMERULAR FILTRATION RATE > 60.0 (>60); GLUCOSE, FASTING 109 MG/DL (70-105); POTASSIUM SERUM 4.3 MEQ/L (3.5-5.1); SODIUM LEVEL 142 MEQ/L (136-145); TOTAL PROTEIN 5.4 GM/DL (6.4-8.2)
[2017-04-11 05:03] LABS: ALBUMIN 1.7 GM/DL (3.2-5.2)
[2017-04-11] MEDS: SLF 3 ML SYR IV SCH ×3 (05:44→21:16)
[2017-04-11] MEDS: LR 1,000 ML IV SCH ×3 (08:18→21:17)
[2017-04-11] MEDS ORDERED: FLUCONAZOLE 400 MG in APPROPRIATE DILUENT 1 EA IV ONE (10:00)
[2017-04-11] MEDS: PANTOPRAZOLE 40MG INJ (PROTONIX) (C9113) IV SCH (20:59)
[2017-04-11] MEDS: ENOXAPARIN 40 MG/0.4 ML SYRINGE (J1650) SC SCH (20:59)
[2017-04-12 02:00] VITALS: BP 138/58
[2017-04-12] MEDS: PIPERACILLIN/TAZOBACTAM SOD 3.375 GM in D5W 50 ML IV SCH ×4 (02:16→20:14)
[2017-04-12] MEDS: LR 1,000 ML IV SCH ×3 (03:54→23:50)
[2017-04-12 06:00] VITALS: BP 138/72
[2017-04-12] MEDS: SLF 3 ML SYR IV SCH ×3 (06:15→22:00)
[2017-04-12 06:18] LABS: MEAN CORPUSCULAR HEMOGLOBIN 25.7 pg (27.0-33.0); MEAN CORPUSCULAR HGB CONC 31.7 g/dl (32.0-36.5); RED CELL DISTRIBUTION WIDTH 14.6 % (11.5-14.5); WHITE BLOOD COUNT 12.1 10^3/uL (4.0-10.0)
[2017-04-12 06:43] LABS: ALBUMIN 1.6 GM/DL (3.2-5.2); ALBUMIN/GLOBULIN RATIO 0.43 (1.00-1.93); ALKALINE PHOSPHATASE 40 U/L (45-117); ALT/SGPT 13 U/L (12-78); ANION GAP 7 MEQ/L (8-16); AST/SGOT 20 U/L (15-37); BILIRUBIN,TOTAL 0.6 MG/DL (0.2-1.0); BLOOD UREA NITROGEN 19 MG/DL (7-18); CARBON DIOXIDE LEVEL 29 MEQ/L (21-32); CHLORIDE LEVEL 107 MEQ/L (98-107); CREATININE FOR GFR 1.02 MG/DL (0.70-1.30); GLOMERULAR FILTRATION RATE > 60.0 (>60); GLUCOSE, FASTING 84 MG/DL (70-105); MAGNESIUM LEVEL 2.1 MG/DL (1.8-2.4); POTASSIUM SERUM 3.9 MEQ/L (3.5-5.1); SODIUM LEVEL 143 MEQ/L (136-145); TOTAL PROTEIN 5.3 GM/DL (6.4-8.2)
[2017-04-12 10:00] VITALS: BP 126/69
--- NOTE | 2017-04-12 10:55 | RO ---
DATE OF PROCEDURE: 04/10/2017 PREOPERATIVE DIAGNOSIS: Probable anastomotic leak. POSTOPERATIVE DIAGNOSIS: Duodenal leak with peritonitis. PROCEDURE PERFORMED: Exploratory laparotomy with oversewing of duodenal leak and irrigation and debridement of peritonitis. SURGEON: Dr. Mcghee ANESTHESIA: General. INDICATIONS FOR THE PROCEDURE: Patient is a 46-year-old man now 4 days post-op from a laparoscopic and partially open right hemicolectomy for a carcinoma in the region of the hepatic flexure. He had been doing well post-op. He was noted to be somewhat tachycardiac on the evening of the . On the morning of the , he was found to have a markedly elevated white blood cell count with some increased tenderness in the right upper abdomen. He is felt to have an anastomotic leak and is now for exploratory laparotomy. OPERATIVE PROCEDURE: The patient was placed under general endotracheal anesthesia. A nasogastric tube was inserted. A Terrell catheter was inserted. Thromboembolism deterrents (TEDs) and sequentials were utilized. The patient's abdomen was prepped and draped in a sterile fashion. He had a midline incision in the epigastrium extending down to slightly below the umbilicus, which was approximately 20 cm in length. There was a drain exiting from the midline of the abdomen slightly below the inferior end of the incision. His surgical mercy were removed. The running sutures in the fascia were removed as well. The abdomen was then opened through the length of the incision. There was some turbid fluid with some bilious staining in the right upper quadrant. There was exudate noted on loops of small bowel in the right mid and upper abdomen. The abdomen was explored manually. There was a large amount of free turbid fluid with some light bile staining in the right upper quadrant. Loose adhesions were broken apart by finger dissection to identify the area of the ileocolic anastomosis. This lay just to the right of the midline and when this was well exposed it was clear that the anastomosis did not seem to have a leak. There was some generalized mild dilation of the small bowel. The right upper quadrant was then irrigated and inspected. There was fluid above the liver and in the subhepatic space with some exudate on the liver and on loops of small bowel. The abdomen was copiously irrigated with warm saline to remove any free fluid. Any loose exudate on loops of the small bowel in the right midabdomen was gently removed with a moist lap pad. There was some exudate that could not be removed. The left upper quadrant and the bowel in the left side of the abdomen was without any significant inflammation or contamination. Further inspection was performed in the right upper quadrant. A Bookwalter retractor was utilized for exposure. A small perforation was identified in the duodenum. Careful inspection showed that this appeared to lie approximately at the juncture of the duodenal bulb with the second portion of the duodenum on the anteroinferior aspect of the duodenum. There were several hemostatic clips just inferior to this on adjacent tissue from his recent surgery. The opening was perhaps 4 mm in length and appeared to go transversely on the wall of the duodenum. The duodenum was identified clearly proximal to this. A 10-Malay red rubber Schulte catheter was gently inserted through this opening proximally and distally to confirm the course of the duodenum. Despite the small opening the tissues appeared viable on both sides of the opening. After inspecting and finding no other problems. this small opening was closed primarily with three interrupted simple sutures of #3-0 Vicryl. The drain, which had been placed in the lower midline of the abdomen. was removed. A 19-Malay Fracisco drain was inserted through the right flank and directed across the retroperitoneum to lie directly across the area of the duodenal repair. The small bowel was inspected again and it was confirmed that there were no small bowel injuries and that the anastomosis was intact. The abdomen was then thoroughly irrigated with warm saline and this was all removed as thoroughly as possible. There was a portion of the omentum attached to the region of the gastric antrum, which conveniently fell down across the area of the duodenal repair and covered the drain nicely. The small bowel was returned to the abdomen in anatomic position. The drain was sutured to the skin with a #2-0 silk. The position of the nasogastric (NG) tube in the distal body of the stomach was confirmed by palpation. The fascia of the midline was then closed with interrupted simple sutures of #1 Vicryl. The skin incision was closed with skin mercy. The drain was connected to a Quinton-Olivo bulb. The patient tolerated the procedure well without apparent complication. He was awakened in the operating room, extubated and moved to the recovery room in stable condition. LOCO
[2017-04-12] MEDS: MORPHINE 1MG/ML IN 0.9% NACL 100ML IV BAG IV PRN (12:53)
[2017-04-12 14:00] VITALS: BP 128/77
[2017-04-12 17:56] VITALS: BP 128/78
[2017-04-12] MEDS: ENOXAPARIN 40 MG/0.4 ML SYRINGE (J1650) SC SCH (20:13)
[2017-04-12] MEDS: PANTOPRAZOLE 40MG INJ (PROTONIX) (C9113) IV SCH (20:13)
[2017-04-12 22:00] VITALS: BP 137/77
[2017-04-13 02:00] VITALS: BP 123/72
[2017-04-13] MEDS: PIPERACILLIN/TAZOBACTAM SOD 3.375 GM in D5W 50 ML IV SCH ×4 (02:02→21:15)
[2017-04-13 06:00] VITALS: BP 129/69
[2017-04-13 07:25] LABS: MEAN CORPUSCULAR HEMOGLOBIN 25.7 pg (27.0-33.0); MEAN CORPUSCULAR VOLUME 80.4 fl (80.0-96.0); RED CELL DISTRIBUTION WIDTH 14.6 % (11.5-14.5); WHITE BLOOD COUNT 8.7 10^3/uL (4.0-10.0)
[2017-04-13 08:01] LABS: ALBUMIN 1.7 GM/DL (3.2-5.2); ALBUMIN/GLOBULIN RATIO 0.45 (1.00-1.93); ALKALINE PHOSPHATASE 39 U/L (45-117); ALT/SGPT 13 U/L (12-78); ANION GAP 7 MEQ/L (8-16); AST/SGOT 22 U/L (15-37); BILIRUBIN,TOTAL 0.6 MG/DL (0.2-1.0); BLOOD UREA NITROGEN 16 MG/DL (7-18); CALCIUM LEVEL 8.4 MG/DL (8.5-10.1); CARBON DIOXIDE LEVEL 31 MEQ/L (21-32); CHLORIDE LEVEL 106 MEQ/L (98-107); CREATININE FOR GFR 0.83 MG/DL (0.70-1.30); GLOMERULAR FILTRATION RATE > 60.0 (>60); GLUCOSE, FASTING 83 MG/DL (70-105); POTASSIUM SERUM 3.6 MEQ/L (3.5-5.1); SODIUM LEVEL 144 MEQ/L (136-145); TOTAL PROTEIN 5.5 GM/DL (6.4-8.2)
[2017-04-13] MEDS: SLF 3 ML SYR IV SCH ×3 (08:16→21:15)
[2017-04-13] MEDS: LR 1,000 ML IV SCH (08:16)
[2017-04-13 10:00] VITALS: BP 131/78
[2017-04-13] MEDS: NORCO, ANEXSIA 5/325MG TABLET (HYDROcodone/ACETAMINOPHEN) PO PRN ×2 (11:02→18:50)
[2017-04-13] MEDS: FLUCONAZOLE 200 MG in APPROPRIATE DILUENT 1 EA IV SCH (11:02)
[2017-04-13 14:00] VITALS: BP 135/80
[2017-04-13] MEDS: MORPHINE 2 MG/ML 1ML SYRINGE IV PRN ×2 (15:46→22:30)
[2017-04-13 18:00] VITALS: BP 146/88
[2017-04-13] MEDS: PANTOPRAZOLE 40MG INJ (PROTONIX) (C9113) IV SCH (21:15)
[2017-04-13] MEDS: ENOXAPARIN 40 MG/0.4 ML SYRINGE (J1650) SC SCH (21:15)
[2017-04-13 22:00] VITALS: BP 146/84
[2017-04-14 02:00] VITALS: BP 140/88
[2017-04-14] MEDS: PIPERACILLIN/TAZOBACTAM SOD 3.375 GM in D5W 50 ML IV SCH ×4 (02:10→20:48)
[2017-04-14] MEDS: NORCO, ANEXSIA 5/325MG TABLET (HYDROcodone/ACETAMINOPHEN) PO PRN ×4 (02:11→22:00)
[2017-04-14] MEDS: MORPHINE 2 MG/ML 1ML SYRINGE IV PRN ×4 (05:22→23:14)
[2017-04-14] MEDS: SLF 3 ML SYR IV SCH ×3 (05:23→20:49)
[2017-04-14 06:00] VITALS: BP 147/90
[2017-04-14 06:18] LABS: MEAN CORPUSCULAR HEMOGLOBIN 25.8 pg (27.0-33.0); MEAN CORPUSCULAR VOLUME 80.5 fl (80.0-96.0); RED CELL DISTRIBUTION WIDTH 14.4 % (11.5-14.5); WHITE BLOOD COUNT 7.9 10^3/uL (4.0-10.0)
[2017-04-14 06:32] LABS: ALBUMIN 1.8 GM/DL (3.2-5.2); ALBUMIN/GLOBULIN RATIO 0.44 (1.00-1.93); ALKALINE PHOSPHATASE 41 U/L (45-117); ALT/SGPT 13 U/L (12-78); ANION GAP 7 MEQ/L (8-16); AST/SGOT 19 U/L (15-37); BILIRUBIN,TOTAL 0.6 MG/DL (0.2-1.0); BLOOD UREA NITROGEN 13 MG/DL (7-18); CALCIUM LEVEL 8.4 MG/DL (8.5-10.1); CARBON DIOXIDE LEVEL 33 MEQ/L (21-32); CHLORIDE LEVEL 102 MEQ/L (98-107); CREATININE FOR GFR 0.76 MG/DL (0.70-1.30); GLOMERULAR FILTRATION RATE > 60.0 (>60); GLUCOSE, FASTING 90 MG/DL (70-105); MAGNESIUM LEVEL 2.2 MG/DL (1.8-2.4); POTASSIUM SERUM 3.6 MEQ/L (3.5-5.1); SODIUM LEVEL 142 MEQ/L (136-145); TOTAL PROTEIN 5.9 GM/DL (6.4-8.2)
[2017-04-14 10:00] VITALS: BP 141/77
[2017-04-14] MEDS: FLUCONAZOLE 200 MG in APPROPRIATE DILUENT 1 EA IV SCH (11:30)
[2017-04-14 14:00] VITALS: BP 162/93
[2017-04-14 18:00] VITALS: BP 156/94
[2017-04-14] MEDS: PANTOPRAZOLE 40MG INJ (PROTONIX) (C9113) IV SCH (20:48)
[2017-04-14] MEDS: ENOXAPARIN 40 MG/0.4 ML SYRINGE (J1650) SC SCH (20:49)
[2017-04-14 22:00] VITALS: BP 138/78
[2017-04-15 02:00] VITALS: BP 131/80
[2017-04-15] MEDS: PIPERACILLIN/TAZOBACTAM SOD 3.375 GM in D5W 50 ML IV SCH ×2 (02:34→07:36)
[2017-04-15] MEDS: MORPHINE 2 MG/ML 1ML SYRINGE IV PRN (03:18)
[2017-04-15] MEDS: SLF 3 ML SYR IV SCH (05:37)
[2017-04-15 06:00] VITALS: BP 128/80
[2017-04-15 07:23] LABS: MEAN CORPUSCULAR HEMOGLOBIN 25.3 pg (27.0-33.0); MEAN CORPUSCULAR HGB CONC 31.9 g/dl (32.0-36.5); MEAN CORPUSCULAR VOLUME 79.3 fl (80.0-96.0); PLATELET COUNT, AUTOMATED 351 10^3/uL (150-450); RED CELL DISTRIBUTION WIDTH 14.6 % (11.5-14.5); WHITE BLOOD COUNT 8.1 10^3/uL (4.0-10.0)
[2017-04-15] MEDS ORDERED: NORCOTAB PO (07:30)
[2017-04-15] MEDS ORDERED: SENN1TAB2 PO (07:30)
[2017-04-15] MEDS: NORCO, ANEXSIA 5/325MG TABLET (HYDROcodone/ACETAMINOPHEN) PO PRN (07:36)
[2017-04-15 07:56] LABS: ALBUMIN 1.7 GM/DL (3.2-5.2); ALBUMIN/GLOBULIN RATIO 0.41 (1.00-1.93); ALKALINE PHOSPHATASE 52 U/L (45-117); ALT/SGPT 17 U/L (12-78); ANION GAP 8 MEQ/L (8-16); AST/SGOT 19 U/L (15-37); BILIRUBIN,TOTAL 0.5 MG/DL (0.2-1.0); BLOOD UREA NITROGEN 9 MG/DL (7-18); CALCIUM LEVEL 8.2 MG/DL (8.5-10.1); CARBON DIOXIDE LEVEL 29 MEQ/L (21-32); CHLORIDE LEVEL 103 MEQ/L (98-107); CREATININE FOR GFR 0.78 MG/DL (0.70-1.30); GLOMERULAR FILTRATION RATE > 60.0 (>60); GLUCOSE, FASTING 91 MG/DL (70-105); MAGNESIUM LEVEL 2.1 MG/DL (1.8-2.4); POTASSIUM SERUM 3.3 MEQ/L (3.5-5.1); SODIUM LEVEL 140 MEQ/L (136-145); TOTAL PROTEIN 5.8 GM/DL (6.4-8.2)
[2017-04-15 10:00] VITALS: BP 147/84
--- NOTE | 2017-04-15 19:10 | DSES ---
DATE OF ADMISSION: 04/06/2017 DATE OF DISCHARGE: 04/15/2017 ADMISSION DIAGNOSIS: Right colon adenocarcinoma. DISCHARGE DIAGNOSIS: Right colon adenocarcinoma. HOSPITAL COURSE: The patient is a 46-year-old male who presented on 04/06/2017 for laparoscopic right hemicolectomy for colon cancer. Surgery was very complicated just due to the large size and progression of his cancer. He ended up with a complete right hemicolectomy. The mass was densely adhered to the serosal and the duodenum which had a carefully be dissected free. However, there is no obvious injuries during the procedure. He had a drain left in place. His anastomosis was created between the mid transverse colon of the terminal ileum. Postoperatively he did well. He is passing gas by postop day 2. That Tuesday he was tolerating NG tube removed with clear liquid diet. That Tuesday the , he was starting to have some increasing pain on the right side late in the day his drain output started to change colors and became more yellowish and slightly bilious. On Tuesday the , he had a abrupt change in his white blood cell count as well as some tachycardia with these findings there was suspicion for likely anastomotic leak. Dr. Mcghee was covering for that weekend. He brought him to the OR on the for a re-exploration and identified a small 4-5 mm hole in the second portion of duodenum. There was not a lot of inflammation surrounding this so he was able to suture it closed primarily, replace the drain and closed up his abdomen. Immediately postop his pain was much improved. He continued to progress rapidly. Since then his white count returned back to normal. No fevers at all since the surgery he has been up ambulating the halls tolerating diet and having bowel movements and passing flatus. PLAN: The plan is to discharge him home today. Remove the drain. Have him continue with a regular diet and he will follow up with me in about a week to have the rest of sutures removed. He is discharged home with pain pills and stool softener. No need for any more antibiotics. He will follow up with me in the office in a week for staple removal and then he will likely be able to return to work in about 2 week. He can shower. No bathing. He was given all the rest of the instructions that he needs as well as our office number coffee of any problems in the meantime.
== END 2017-04-15 10:36 | disposition home or self-care (01) | DRG 220 ==
LOC: M OR 06:44 → M MSPAV 15:50 → M ICU 04-10 11:46 → M MSPAV 04-11 12:50
PROVIDERS: ADMIT Surgery; ATTEND Surgery
PROC: 0DBL0ZZ Excision of Transverse Colon, Open Approach (ICD-10-PCS; principal; 2017-04-06 08:30)
PROC: 0DQ90ZZ Repair Duodenum, Open Approach (ICD-10-PCS; 2017-04-10)
DX: C18.3 Malignant neoplasm of hepatic flexure (principal); K65.9 Peritonitis, unspecified; F32.9 Major depressive disorder, single episode, unspecified; F17.210 Nicotine dependence, cigarettes, uncomplicated; K21.9 Gastro-esophageal reflux disease without esophagitis; F41.9 Anxiety disorder, unspecified; Z79.899 Other long term (current) drug therapy; Y73.3 Surgical instruments, materials and gastroenterology and urology devices (including sutures) associated with adverse incidents; K91.71 Accidental puncture and laceration of a digestive system organ or structure during a digestive system procedure

== ENCOUNTER → 2017-05-12 | Outpatient (CLI) | payer OTHER ==
[~2017-05-12] MED LIST changes: +METR1TAB66; +NEOM50TA; +NORCOTAB PO; +PROHANCE 279.3MG/ML 15ML VIAL (A9576) As Ordered ONE; +PROHANCE 279.3MG/ML 5ML VIAL (A9576) As Ordered ONE; +SENN1TAB2 PO
--- NOTE | 2017-05-12 15:13 | REP ---
MR BRAIN WITHOUT AND WITH CONTRAST: HISTORY: Colon carcinoma. CONTRAST: ProHance 20 mL. Several punctate areas of increased signal intensity on T2-weighted images are present in the periventricular and subcortical white matter. This represents small vessel ischemic disease. There is no intraparenchymal hemorrhage, infarct, mass, or midline shift. There is no abnormal enhancement. The ventricular system is normal in appearance. There is no extracerebral collection. A retention cyst is present in the right maxillary sinus. Minimal mucosal thickening is present in the left maxillary sinus. IMPRESSION: Minimal small vessel ischemic disease. Signed by Uziel Stacy MD 05/12/2017 03:17 P
== END ==
LOC: M RAD 13:15
PROVIDERS: ATTEND Nurse Practitioner Family
DX: C61 Malignant neoplasm of prostate (principal); I67.82 Cerebral ischemia
CPT/HCPCS: 70553; A9576

== ENCOUNTER → 2017-05-17 | Outpatient (CLI) | payer OTHER ==
[~2017-05-17] MED LIST changes: -PROHANCE 279.3MG/ML 15ML VIAL (A9576) As Ordered ONE; -PROHANCE 279.3MG/ML 5ML VIAL (A9576) As Ordered ONE
--- NOTE | 2017-05-17 15:21 | REP ---
PET/CT: HISTORY: Staging colon cancer. Status post right hemicolectomy March 2017 for moderately differentiated adenocarcinoma. COMPARISONS: Comparison CT study of the abdomen and pelvis is from March 22, 2017. TECHNIQUE: 55 minutes following the intravenous injection of a 9.8 mCi dose of F-18 FDG, three-dimensional PET scintigraphy is acquired from the skull base to the proximal thighs. Triplanar noncontrast CT scanning is acquired through the same anatomic range for attenuation correction, and image registration with scan parameters optimized to minimize radiation exposure to the patient. PET scintigraphy and CT datasets were fused and displayed on a workstation with multiplanar and projection display capability. PET/CT FINDINGS: There are multiple foci of hypermetabolic uptake within the liver consistent with metastatic disease. Most but not all of these are in the right hepatic lobe. There is one small lesion in the medial tip of the left lobe. There are 7 to 8 in total. These arrange in metabolic activity from maximum SUV value of 8.8 to 21.1. They range up to 6 cm in size. No adrenal hypermetabolic uptake is seen. There is hypermetabolic uptake at the pericolonic mesentery adjacent to the right colectomy site in the upper abdomen just anterior to the descending duodenum. A 3.8 cm area of hypermetabolic uptake is seen in this location with maximum standard uptake value of 12.4. In the root of the small bowel mesentery just anterior to the transverse duodenum and just to the right of the superior mesenteric vein, there is a hypermetabolic 13 mm lymph node with maximum standard uptake value of 5.7. These findings are consistent with residual intra-abdominal neoplasm. The paraduodenal area adjacent to surgical clips contains a small bubble of air and there could be some component of inflammation here. There is expected postoperative uptake in the anterior abdominal wall. No other abnormal hypermetabolic focus is seen. No visible pulmonary parenchymal nodule is seen. No mediastinal or hilar adenopathy noted. Head and neck soft tissues are unremarkable. No bony destructive lesion is seen. There is normal variant skeletal muscle uptake in the right side of the neck. IMPRESSION: There is a metastatic hypermetabolic uptake in the multiple liver masses well as in the retroperitoneal and intraperitoneal isiah distribution. Signed by Enrrique Gray MD 05/17/2017 03:46 P
== END ==
LOC: M PLARAD 09:17
PROVIDERS: ATTEND Internal Medicine Medical Oncology
DX: C18.9 Malignant neoplasm of colon, unspecified (principal); K76.9 Liver disease, unspecified
CPT/HCPCS: 78815; A9552

== ENCOUNTER → 2017-05-24 | Outpatient (REF) | payer OTHER ==
[~2017-05-24] MED LIST changes: +PERC5TAB12 PO; +SENO8.6T5 PO
[2017-05-24 13:12] LABS: INR 0.78
== END ==
LOC: M LAB REF 12:28
PROVIDERS: ATTEND Internal Medicine Medical Oncology
DX: C18.9 Malignant neoplasm of colon, unspecified (principal); Z80.0 Family history of malignant neoplasm of digestive organs

== ENCOUNTER 2017-05-31 13:59 | Emergency (ER) | payer OTHER ==
[~2017-05-31] VITALS: Ht 185.4 cm; Wt 107.0 kg
[2017-05-31 14:00] VITALS: BP 137/83
== END 2017-05-31 16:11 | disposition left against medical advice (07) ==
LOC: M ED 13:59
DX: Z53.21 Procedure and treatment not carried out due to patient leaving prior to being seen by health care provider (principal)

== ENCOUNTER → 2017-06-02 | Outpatient (CLI) | payer OTHER ==
--- NOTE | 2017-06-03 07:21 | REP ---
ABDOMINAL RADIOGRAPHS: CLINICAL: Pneumoperitoneum. TECHNIQUE: Upright view of the lower chest and upright abdomen with supine views of abdomen and pelvis. FINDINGS: No free air below the diaphragm to suspect pneumoperitoneum. Bowel gas pattern is nonspecific. Evidence for prior cholecystectomy. Skeletal structures demonstrate age-related degenerative changes. IMPRESSION: Nonspecific bowel gas pattern. No evidence for pneumoperitoneum. Signed by Young Aguilera MD 06/03/2017 07:39 A
--- NOTE | 2017-06-03 07:23 | REP ---
CHEST X-RAY: CLINICAL: Chest and abdominal pain . TECHNIQUE: PA and lateral. FINDINGS: Mediastinum and cardiac silhouette normal. The lung magana are clear. No focal consolidation, effusions or pneumothorax. The skeletal structures are intact. No evidence for pneumoperitoneum. IMPRESSION: No acute cardiopulmonary process. No evidence for pneumoperitoneum. Signed by Young Aguilera MD 06/03/2017 07:40 A
== END ==
LOC: M ADAMS 11:09
PROVIDERS: ATTEND Internal Medicine Medical Oncology
DX: C18.9 Malignant neoplasm of colon, unspecified (principal)

== ENCOUNTER 2017-06-03 11:29 | Day surgery (SDC) | payer OTHER ==
[~2017-06-03] VITALS: Ht 185.4 cm; Wt 103.1 kg
[2017-06-03] MEDS ORDERED: LIDOCAINE 2% INJ 100 MG/5 ML SDV (FOR ANES.) As Ordered ONE (13:14)
[2017-06-03] MEDS ORDERED: fentaNYL 100 MCG/2 ML INJECTION (J3010) As Ordered ONE (13:14)
[2017-06-03] MEDS ORDERED: PROPOFOL 200 MG/20 ML VIAL As Ordered ONE ×2 (13:14→14:04)
[2017-06-03] MEDS ORDERED: MIDAZOLAM INJ 2 MG/2 ML VIAL (J2250) As Ordered ONE (13:14)
[2017-06-03] MEDS ORDERED: HEPARIN SOD (PORCINE) 5000 UNITS/ML VIAL As Ordered ONE (13:42)
[2017-06-03] MEDS ORDERED: LIDOCAINE 1% MDV 20ML VIAL As Ordered ONE (13:43)
[2017-06-03 15:10] VITALS: BP 120/83
--- NOTE | 2017-06-03 18:14 | REP ---
Fluoroscopic guidance for Mediport placement: 06/03/2017. Findings: Two images from C-arm fluoroscopy provided to Dr. Mckee of the surgery department for right Mediport placement. Initial image shows a wire through the subclavian into the SVC. The second image shows the catheter tip in the right side of the chest within the SVC. Fluoroscopy: 4 seconds. Signed by Mo Ramirez MD 06/03/2017 07:09 P
--- NOTE | 2017-06-06 07:44 | RO ---
DATE OF PROCEDURE: 06/03/2017 PREOPERATIVE DIAGNOSIS: Colon cancer. POSTOPERATIVE DIAGNOSIS: Colon cancer. PROCEDURE: 1. Is tunneled central venous catheter with subcutaneous port. 2. Interpretation and review of fluoroscopy for placement of tunneled central venous catheter. SURGEON: Dr. Khang Mckee. AUTOGRAPHER: None. ANESTHESIA: General. ESTIMATED BLOOD LOSS: 5 mL. COMPLICATIONS: None. INDICATION: The patient is a 46-year-old male recently diagnosed with stage IV colon cancer status post colon resection here for MediPort placement to start receiving chemotherapy. Risks, benefits procedure not limited but including bleeding, infection and pneumothorax discussed in detail with the patient. Informed was obtained and the procedure was planned. DESCRIPTION OF PROCEDURE: The patient brought back to operating room 3. After sufficient sedation, this bilateral upper chest and neck was sterilely prepped and draped with chlorhexidine. Next, A time-out was done to confirm proper patient and proper procedure. Following that, starting with the right neck, the skin and subcutaneous tissue was infiltrated with 0.5% Marcaine with epinephrine. Next using the cannulation needle, the right subclavian vein was accessed with first try. Once dark red non-pulsatile blood was identified, the guidewire was passed through the needle and the vessel with no resistance. The needle was then removed. Fluoroscopy was used to confirm proper positioning of the catheter in the superior vena cava also confirmed with some PVCs. The guidewire was then retracted back a little bit until ectopy was completed. Following that 3 cm incision was made inferior to the needle insertion site as well as 5 mm incision at the base of the guidewire. The subcutaneous pocket was then created using electrocautery. Once this was completed, the catheter was cut to 19 cm connected to the port and was tunneled from port site through to the base of the guidewire brought out through the skin there. The port was placed inside the pocket. Next, a split sheath introducer and dilator were passed over top of the guidewire into the vessel with minimal resistance. Once that was done the catheter was passed through the split sheath introducer and the split sheath introducer was removed. Once everything was in place a catheter was tested to confirm patency following that the fluoroscopy was also used to confirm there were no kinks in the tubing and the proper positioning. Once this was all completed, the catheter was sutured into the pocket using a #3-0 Vicryl suture. Subcutaneous tissues were reapproximated with interrupted #3-0 Vicryl and skin was approximated with a running subcuticular #4-0 Vicryl suture. The area was then cleaned and dried and Steri-Strips and tape were applied thus ending procedure in the procedure.
== END 2017-06-03 15:25 | disposition home or self-care (01) ==
LOC: M SDC 11:29
PROVIDERS: ATTEND Surgery
DX: C18.3 Malignant neoplasm of hepatic flexure (principal); F41.9 Anxiety disorder, unspecified; F32.9 Major depressive disorder, single episode, unspecified; K21.9 Gastro-esophageal reflux disease without esophagitis; K44.9 Diaphragmatic hernia without obstruction or gangrene; M12.9 Arthropathy, unspecified; M54.5 Low back pain; R51 Headache; Z79.899 Other long term (current) drug therapy; Z72.0 Tobacco use
CPT/HCPCS: 36561; 76000; C1788

== ENCOUNTER → 2017-06-09 | Outpatient (CLI) | payer OTHER ==
--- NOTE | 2017-06-09 15:37 | REP ---
WHOLE BODY BONE SCAN: Following the intravenous administration of 21.7 mCi of technetium 99m MDP, the patient's whole body is imaged in the anterior and posterior projections. Additional oblique images and lateral views are performed. There is a focus of increased uptake in the posterior right 11th rib at the site of an old fracture as seen on prior CT scans. There is no compelling scintigraphic evidence of osseous metastases in the axial or appendicular skeleton. Renal and bladder activity are seen. IMPRESSION: No compelling scintigraphic evidence of osseous metastases of the axial and appendicular skeletons. Signed by Khang Wilhelm MD 06/09/2017 04:55 P
== END ==
LOC: M RAD 09:43
PROVIDERS: ATTEND Internal Medicine Medical Oncology
DX: C18.9 Malignant neoplasm of colon, unspecified (principal)

== ENCOUNTER 2017-06-29 16:37 | Inpatient (IN) | payer OTHER ==
[2017-06-29 17:30] LABS: HEMATOCRIT 32.7 % (42.0-52.0); HEMOGLOBIN 10.2 g/dl (14.0-18.0); MEAN CORPUSCULAR HEMOGLOBIN 22.3 pg (27.0-33.0); MEAN CORPUSCULAR HGB CONC 31.2 g/dl (32.0-36.5); MEAN CORPUSCULAR VOLUME 71.4 fl (80.0-96.0); RED BLOOD COUNT 4.58 10^6/uL (4.30-6.10); RED CELL DISTRIBUTION WIDTH 16.9 % (11.5-14.5); WHITE BLOOD COUNT 9.8 10^3/uL (4.0-10.0)
[2017-06-29] MEDS: MORPHINE 4 MG/ML 1ML SYRINGE IV ×2 (17:38→18:57)
[2017-06-29 17:46] LABS: INR 1.03; PROTHROMBIN TIME 13.6 SECONDS (12.4-14.5)
[2017-06-29 17:47] LABS: PARTIAL THROMBOPLASTIN TIME 26.3 SECONDS (26.8-37.9)
[2017-06-29 17:48] LABS: POSITIVE MORPH POS FLAG
[2017-06-29 17:49] LABS: ADD MANUAL DIFFER YES; DIFF SLIDE NUMBER 307; PLATELET COUNT, AUTOMATED 119 10^3/uL (150-450)
[2017-06-29 17:51] LABS: LYMPHOCYTES 11 % (16-52); MONOCYTES 2 % (0-8); NEUTROPHILS 87 % (35-75)
[2017-06-29 17:52] LABS: HYPOCHROMASIA 1+; MICROCYTOSIS 1+; PLATELET CLUMPS SMALL AMT; PLATELET ESTIMATE DECREASED (NORMAL)
[2017-06-29 17:53] LABS: TOXIC VACUOLATION 1+
[2017-06-29 17:55] LABS: NT-PRO BNP 55 PG/ML (<125)
[2017-06-29 17:57] LABS: ALBUMIN 2.4 GM/DL (3.2-5.2); ALBUMIN/GLOBULIN RATIO 0.63 (1.00-1.93); ALKALINE PHOSPHATASE 68 U/L (45-117); ALT/SGPT 14 U/L (12-78); ANION GAP 8 MEQ/L (8-16); AST/SGOT 22 U/L (7-37); BILIRUBIN,DIRECT 0.3 MG/DL (0.0-0.2); BILIRUBIN,TOTAL 0.5 MG/DL (0.2-1.0); BLOOD UREA NITROGEN 17 MG/DL (7-18); CALCIUM LEVEL 7.6 MG/DL (8.5-10.1); CARBON DIOXIDE LEVEL 30 MEQ/L (21-32); CHLORIDE LEVEL 95 MEQ/L (98-107); CPK CREATINE PHOSPHOKINASE 27 U/L (39-308); GLOMERULAR FILTRATION RATE > 60.0 (>60); GLUCOSE, FASTING 177 MG/DL (70-105); LIPASE 118 U/L (73-393); POTASSIUM SERUM 4.1 MEQ/L (3.5-5.1); SODIUM LEVEL 133 MEQ/L (136-145); TOTAL PROTEIN 6.2 GM/DL (6.4-8.2); TROPONIN I < 0.02 NG/ML (< 0.10)
[2017-06-29] MEDS ORDERED: ISOVUE-370 76% 100ML VIAL (Q9967) As Ordered (18:23)
[2017-06-29] MEDS ORDERED: SENNA 8.6 MG TAB (SENOKOT) PO (21:00)
[2017-06-29] MEDS: KETOROLAC 30 MG/ML VIAL (J1885) IV (22:33)
[2017-06-30] MEDS: MORPHINE 2 MG/ML 1ML SYRINGE IV ×4 (03:05→22:03)
[2017-06-30 06:18] LABS: BASO % 0.1 % (0.0-1.0); EOS # 0.1 10^3/uL (0.0-0.50); EOS % 0.8 % (0.0-3.0); HEMATOCRIT 29.2 % (42.0-52.0); IMMATURE GRANULOCYTE # 0.1 10^3/uL (0-0); IMMATURE GRANULOCYTE % 0.8 % (0-0); LYMPH % 13.3 % (24.0-44.0); MEAN CORPUSCULAR HEMOGLOBIN 22.2 pg (27.0-33.0); MEAN CORPUSCULAR HGB CONC 30.8 g/dl (32.0-36.5); MEAN CORPUSCULAR VOLUME 71.9 fl (80.0-96.0); MONO # 0.4 10^3/uL (0.0-0.8); MONO % 4.9 % (0.0-5.0); NEUTROPHILS # 6.1 10^3/uL (1.8-7.7); NEUTROPHILS % 80.1 % (36.0-66.0); PLATELET COUNT, AUTOMATED 100 10^3/uL (150-450); RED BLOOD COUNT 4.06 10^6/uL (4.30-6.10); WHITE BLOOD COUNT 7.6 10^3/uL (4.0-10.0)
[2017-06-30 06:19] LABS: POSITIVE MORPH POS FLAG
[2017-06-30 06:42] LABS: ANION GAP 6 MEQ/L (8-16); BLOOD UREA NITROGEN 20 MG/DL (7-18); CALCIUM LEVEL 8.3 MG/DL (8.5-10.1); CARBON DIOXIDE LEVEL 31 MEQ/L (21-32); CHLORIDE LEVEL 98 MEQ/L (98-107); CREATININE FOR GFR 0.87 MG/DL (0.70-1.30); GLOMERULAR FILTRATION RATE > 60.0 (>60); GLUCOSE, FASTING 131 MG/DL (70-105); POTASSIUM SERUM 4.2 MEQ/L (3.5-5.1); SODIUM LEVEL 135 MEQ/L (136-145)
[2017-06-30] MEDS: MULTIVITAMINS/MINERALS THERAP 1 TAB PO (09:13)
[2017-06-30] MEDS: ENOXAPARIN 40 MG/0.4 ML SYRINGE (J1650) SC (10:45)
[2017-06-30] MEDS: ONDANSETRON 4MG/2ML VIAL (J2405) IV ×2 (10:47→22:02)
[2017-06-30] MEDS: MIRALAX *UNIT DOSE* 17GM PACKET PO (12:32)
[2017-06-30] MEDS: oxyCODONE 5MG TAB PO (18:00)
[2017-06-30] MEDS: predniSONE 20 MG TAB PO (18:06)
[2017-06-30] MEDS: DOCUSATE SODIUM 100 MG CAP PO (22:02)
[2017-06-30] MEDS: SERTRALINE HCL 50 MG TAB PO (22:02)
[2017-07-01] MEDS: ONDANSETRON 4MG/2ML VIAL (J2405) IV ×3 (04:13→20:10)
[2017-07-01] MEDS: oxyCODONE 5MG TAB PO ×2 (04:14→18:47)
[2017-07-01 06:15] LABS: BASO % 0.2 % (0.0-1.0); HEMATOCRIT 29.1 % (42.0-52.0); HEMOGLOBIN 9.2 g/dl (14.0-18.0); IMMATURE GRANULOCYTE % 0.8 % (0-0); LYMPH # 0.9 10^3/uL (1.5-4.5); MEAN CORPUSCULAR HEMOGLOBIN 22.3 pg (27.0-33.0); MEAN CORPUSCULAR HGB CONC 31.6 g/dl (32.0-36.5); MEAN CORPUSCULAR VOLUME 70.5 fl (80.0-96.0); MONO # 0.5 10^3/uL (0.0-0.8); MONO % 8.8 % (0.0-5.0); NEUTROPHILS # 3.8 10^3/uL (1.8-7.7); NEUTROPHILS % 72.2 % (36.0-66.0); RED BLOOD COUNT 4.13 10^6/uL (4.30-6.10); RED CELL DISTRIBUTION WIDTH 16.9 % (11.5-14.5); WHITE BLOOD COUNT 5.2 10^3/uL (4.0-10.0)
[2017-07-01 06:25] LABS: PLT CLUMPS? POS FLAG; POS COUNT POS FLAG
[2017-07-01 06:26] LABS: PLATELET COUNT, AUTOMATED 133 10^3/uL (150-450)
[2017-07-01 06:35] LABS: ALBUMIN 2.1 GM/DL (3.2-5.2); ALBUMIN/GLOBULIN RATIO 0.47 (1.00-1.93); ALKALINE PHOSPHATASE 74 U/L (45-117); ALT/SGPT 14 U/L (12-78); ANION GAP 9 MEQ/L (8-16); AST/SGOT 23 U/L (7-37); BILIRUBIN,TOTAL 0.5 MG/DL (0.2-1.0); BLOOD UREA NITROGEN 18 MG/DL (7-18); CALCIUM LEVEL 8.3 MG/DL (8.5-10.1); CARBON DIOXIDE LEVEL 28 MEQ/L (21-32); CHLORIDE LEVEL 98 MEQ/L (98-107); CREATININE FOR GFR 0.75 MG/DL (0.70-1.30); GLOMERULAR FILTRATION RATE > 60.0 (>60); GLUCOSE, FASTING 146 MG/DL (70-105); POTASSIUM SERUM 4.4 MEQ/L (3.5-5.1); SODIUM LEVEL 135 MEQ/L (136-145); TOTAL PROTEIN 6.6 GM/DL (6.4-8.2)
[2017-07-01] MEDS: predniSONE 20 MG TAB PO (08:34)
[2017-07-01] MEDS: ENOXAPARIN 40 MG/0.4 ML SYRINGE (J1650) SC (08:34)
[2017-07-01] MEDS: DOCUSATE SODIUM 100 MG CAP PO ×2 (08:34→20:07)
[2017-07-01] MEDS: MULTIVITAMINS/MINERALS THERAP 1 TAB PO (08:34)
[2017-07-01] MEDS: OMEPRAZOLE 20 MG CAP PO (12:45)
[2017-07-01] MEDS: ACETAMINOPHEN TAB 650MG DOSE (2X325MG) PO (13:30)
[2017-07-01] MEDS: SERTRALINE HCL 50 MG TAB PO (20:07)
[2017-07-02] MEDS: oxyCODONE 5MG TAB PO ×3 (03:55→21:51)
[2017-07-02 06:20] LABS: HEMATOCRIT 27.4 % (42.0-52.0); HEMOGLOBIN 8.7 g/dl (14.0-18.0); MEAN CORPUSCULAR HEMOGLOBIN 22.1 pg (27.0-33.0); MEAN CORPUSCULAR HGB CONC 31.8 g/dl (32.0-36.5); MEAN CORPUSCULAR VOLUME 69.7 fl (80.0-96.0); PLATELET COUNT, AUTOMATED 167 10^3/uL (150-450); RED BLOOD COUNT 3.93 10^6/uL (4.30-6.10); RED CELL DISTRIBUTION WIDTH 16.8 % (11.5-14.5); WHITE BLOOD COUNT 2.8 10^3/uL (4.0-10.0)
[2017-07-02] MEDS: ONDANSETRON 4MG/2ML VIAL (J2405) IV ×3 (08:36→21:49)
[2017-07-02] MEDS: DOCUSATE SODIUM 100 MG CAP PO ×2 (08:36→21:51)
[2017-07-02] MEDS: MULTIVITAMINS/MINERALS THERAP 1 TAB PO (08:36)
[2017-07-02] MEDS: ENOXAPARIN 40 MG/0.4 ML SYRINGE (J1650) SC (08:36)
[2017-07-02] MEDS: predniSONE 20 MG TAB PO (08:36)
[2017-07-02] MEDS: OMEPRAZOLE 20 MG CAP PO (12:02)
[2017-07-02] MEDS: SERTRALINE HCL 50 MG TAB PO (21:51)
[2017-07-03] MEDS: ONDANSETRON 4MG/2ML VIAL (J2405) IV ×3 (04:59→18:04)
[2017-07-03] MEDS: ACETAMINOPHEN TAB 650MG DOSE (2X325MG) PO ×3 (06:17→18:07)
[2017-07-03 06:35] LABS: ANION GAP 10 MEQ/L (8-16); BLOOD UREA NITROGEN 18 MG/DL (7-18); CALCIUM LEVEL 8.1 MG/DL (8.5-10.1); CARBON DIOXIDE LEVEL 28 MEQ/L (21-32); CHLORIDE LEVEL 97 MEQ/L (98-107); CREATININE FOR GFR 0.94 MG/DL (0.70-1.30); GLOMERULAR FILTRATION RATE > 60.0 (>60); GLUCOSE, FASTING 101 MG/DL (70-105); POTASSIUM SERUM 3.7 MEQ/L (3.5-5.1); SODIUM LEVEL 135 MEQ/L (136-145)
[2017-07-03] MEDS: DOCUSATE SODIUM 100 MG CAP PO ×2 (08:53→20:35)
[2017-07-03] MEDS: predniSONE 20 MG TAB PO (08:53)
[2017-07-03] MEDS: MULTIVITAMINS/MINERALS THERAP 1 TAB PO (08:53)
[2017-07-03] MEDS: ENOXAPARIN 40 MG/0.4 ML SYRINGE (J1650) SC (08:53)
[2017-07-03] MEDS: oxyCODONE 5MG TAB PO ×2 (08:53→20:36)
[2017-07-03] MEDS: OMEPRAZOLE 20 MG CAP PO (11:17)
[2017-07-03 13:16] LABS: HEMATOCRIT 28.6 % (42.0-52.0); HEMOGLOBIN 8.9 g/dl (14.0-18.0); MEAN CORPUSCULAR HEMOGLOBIN 21.9 pg (27.0-33.0); MEAN CORPUSCULAR HGB CONC 31.1 g/dl (32.0-36.5); MEAN CORPUSCULAR VOLUME 70.4 fl (80.0-96.0); PLATELET COUNT, AUTOMATED 232 10^3/uL (150-450); RED BLOOD COUNT 4.06 10^6/uL (4.30-6.10); RED CELL DISTRIBUTION WIDTH 17.1 % (11.5-14.5)
[2017-07-03 13:17] LABS: POSITIVE DIFF POS FLAG; POSITIVE MORPH POS FLAG; WHITE BLOOD COUNT 1.5 10^3/uL (4.0-10.0)
[2017-07-03 13:18] LABS: ADD MANUAL DIFFER YES; DIFF SLIDE NUMBER 109; POS COUNT POS FLAG
[2017-07-03 13:45] LABS: ATYPICAL LYMPH 5 % (0-5); BANDS 1 % (< 11); HYPOCHROMASIA 1+; LYMPHOCYTES 46 % (16-52); MICROCYTOSIS 2+; MONOCYTES 18 % (0-8); NEUTROPHILS 30 % (35-75)
[2017-07-03 13:46] LABS: ANISOCYTOSIS 1+
[2017-07-03 13:48] LABS: PLATELET ESTIMATE NORMAL (NORMAL)
[2017-07-03 13:51] LABS: LACTIC ACID SEPSIS PROTOCOL 3.4 MMOL/L (0.4-2.0)
[2017-07-03] MEDS: NS 500 ML IV ×2 (14:48→18:45)
[2017-07-03 15:42] LABS: APPEARANCE, URINE HAZY (CLEAR); BACTERIA, URINE AUTO NEGATIVE (NEGATIVE); BILIRUBIN, URINE AUTO NEGATIVE (NEGATIVE); BLOOD, URINE BLOOD NEGATIVE (NEGATIVE); COLOR, URINE AMBER (YELLOW); GLUCOSE, URINE (UA) AUTO 1+ mg/dL (NEGATIVE); KETONE, URINE AUTO NEGATIVE (NEGATIVE); LEUKOCYTE ESTERASE, URINE AUTO NEGATIVE (NEGATIVE); MUCUS, URINE SMALL (NEGATIVE); NITRITE, URINE AUTO NEGATIVE (NEGATIVE); PROTEIN, URINE AUTO 2+ mg/dL (NEGATIVE); RBC, URINE AUTO 2 /HPF (0-3); SPECIFIC GRAVITY URINE AUTO 1.024 (1.002-1.035); SQUAMOUS EPITHELIAL CELL UR AU 0 /HPF (0-6); WBC, URINE AUTO 2 /HPF (0-3)
[2017-07-03] MEDS: PIPERACILLIN/TAZOBACTAM SOD 4.5 GM in APPROPRIATE DILUENT 1 EA IV (16:38)
[2017-07-03] MEDS: SERTRALINE HCL 50 MG TAB PO (20:35)
[2017-07-03] MEDS: NS 1,000 ML IV (22:06)
[2017-07-04] MEDS: PIPERACILLIN/TAZOBACTAM SOD 4.5 GM in APPROPRIATE DILUENT 1 EA IV ×4 (00:53→23:32)
[2017-07-04] MEDS: ONDANSETRON 4MG/2ML VIAL (J2405) IV ×4 (00:53→20:14)
[2017-07-04] MEDS: ACETAMINOPHEN TAB 650MG DOSE (2X325MG) PO (05:53)
[2017-07-04] MEDS: oxyCODONE 5MG TAB PO ×3 (05:54→22:05)
[2017-07-04 06:04] LABS: HEMOGLOBIN 8.5 g/dl (14.0-18.0); MEAN CORPUSCULAR HEMOGLOBIN 21.5 pg (27.0-33.0); MEAN CORPUSCULAR HGB CONC 30.4 g/dl (32.0-36.5); MEAN CORPUSCULAR VOLUME 70.7 fl (80.0-96.0); PLATELET COUNT, AUTOMATED 257 10^3/uL (150-450); RED BLOOD COUNT 3.96 10^6/uL (4.30-6.10); RED CELL DISTRIBUTION WIDTH 17.2 % (11.5-14.5); WHITE BLOOD COUNT 2.5 10^3/uL (4.0-10.0)
[2017-07-04 06:05] LABS: ADD MANUAL DIFFER YES; DIFF SLIDE NUMBER 86; POSITIVE DIFF POS FLAG; POSITIVE MORPH POS FLAG
[2017-07-04 06:12] LABS: ALBUMIN 1.7 GM/DL (3.2-5.2); ALKALINE PHOSPHATASE 90 U/L (45-117); ALT/SGPT 26 U/L (12-78); ANION GAP 7 MEQ/L (8-16); AST/SGOT 28 U/L (7-37); BILIRUBIN,TOTAL 0.5 MG/DL (0.2-1.0); BLOOD UREA NITROGEN 19 MG/DL (7-18); CALCIUM LEVEL 8.2 MG/DL (8.5-10.1); CARBON DIOXIDE LEVEL 30 MEQ/L (21-32); CHLORIDE LEVEL 99 MEQ/L (98-107); CREATININE FOR GFR 0.76 MG/DL (0.70-1.30); GLOMERULAR FILTRATION RATE > 60.0 (>60); GLUCOSE, FASTING 93 MG/DL (70-105); POTASSIUM SERUM 3.6 MEQ/L (3.5-5.1); SODIUM LEVEL 136 MEQ/L (136-145)
[2017-07-04 06:46] LABS: ATYPICAL LYMPH 3 % (0-5); LYMPHOCYTES 43 % (16-52); MONOCYTES 12 % (0-8); NEUTROPHILS 42 % (35-75)
[2017-07-04 06:47] LABS: HYPOCHROMASIA 1+; MICROCYTOSIS 2+; PLATELET ESTIMATE NORMAL (NORMAL); POIKILOCYTOSIS 1+
[2017-07-04] MEDS: ENOXAPARIN 40 MG/0.4 ML SYRINGE (J1650) SC (08:50)
[2017-07-04] MEDS: DOCUSATE SODIUM 100 MG CAP PO ×2 (08:51→20:14)
[2017-07-04] MEDS: predniSONE 20 MG TAB PO (08:51)
[2017-07-04] MEDS: MULTIVITAMINS/MINERALS THERAP 1 TAB PO (08:51)
[2017-07-04] MEDS: FILGRASTIM 480 MCG/0.8 ML SYRINGE (J1442) SC (08:51)
[2017-07-04] MEDS: NS 1,000 ML IV ×2 (08:52→13:36)
[2017-07-04 10:42] LABS: LACTIC ACID SEPSIS PROTOCOL 3.1 MMOL/L (0.4-2.0)
[2017-07-04] MEDS: OMEPRAZOLE 20 MG CAP PO (12:20)
[2017-07-04] MEDS ORDERED: GASTROGRAFIN SOLUTION 30ML PO (17:15)
[2017-07-04] MEDS: GASTROGRAFIN SOLUTION 30ML PO (17:26)
[2017-07-04] MEDS: GASTROGRAFIN SOLUTION 30ML (Q9963) PO (17:45)
[2017-07-04] MEDS ORDERED: GASTROGRAFIN SOLUTION 30ML (Q9963) PO (17:45)
[2017-07-04] MEDS ORDERED: ISOVUE-370 76% 100ML VIAL (Q9967) As Ordered (18:46)
[2017-07-04] MEDS: SERTRALINE HCL 50 MG TAB PO (20:14)
[2017-07-05] MEDS: ONDANSETRON 4MG/2ML VIAL (J2405) IV ×3 (03:45→20:03)
[2017-07-05] MEDS: MIRALAX *UNIT DOSE* 17GM PACKET PO (04:30)
[2017-07-05 05:57] LABS: HEMATOCRIT 26.3 % (42.0-52.0); HEMOGLOBIN 8.3 g/dl (14.0-18.0); MEAN CORPUSCULAR HGB CONC 31.6 g/dl (32.0-36.5); MEAN CORPUSCULAR VOLUME 69.8 fl (80.0-96.0); PLATELET COUNT, AUTOMATED 247 10^3/uL (150-450); RED BLOOD COUNT 3.77 10^6/uL (4.30-6.10); RED CELL DISTRIBUTION WIDTH 17.2 % (11.5-14.5); WHITE BLOOD COUNT 10.3 10^3/uL (4.0-10.0)
[2017-07-05 06:08] LABS: POSITIVE MORPH POS FLAG
[2017-07-05] MEDS: oxyCODONE 5MG TAB PO ×3 (06:08→22:47)
[2017-07-05 06:09] LABS: ADD MANUAL DIFFER YES; DIFF SLIDE NUMBER 50
[2017-07-05 06:27] LABS: ALBUMIN 1.5 GM/DL (3.2-5.2); ALBUMIN/GLOBULIN RATIO 0.38 (1.00-1.93); ALKALINE PHOSPHATASE 86 U/L (45-117); ALT/SGPT 19 U/L (12-78); ANION GAP 8 MEQ/L (8-16); AST/SGOT 19 U/L (7-37); BILIRUBIN,TOTAL 0.3 MG/DL (0.2-1.0); BLOOD UREA NITROGEN 16 MG/DL (7-18); CARBON DIOXIDE LEVEL 29 MEQ/L (21-32); CHLORIDE LEVEL 98 MEQ/L (98-107); CREATININE FOR GFR 0.66 MG/DL (0.70-1.30); GLOMERULAR FILTRATION RATE > 60.0 (>60); GLUCOSE, FASTING 86 MG/DL (70-105); POTASSIUM SERUM 3.3 MEQ/L (3.5-5.1); SODIUM LEVEL 135 MEQ/L (136-145); TOTAL PROTEIN 5.5 GM/DL (6.4-8.2)
[2017-07-05 06:56] LABS: ATYPICAL LYMPH 2 % (0-5); BANDS 3 % (< 11); EOSINOPHILS 4 % (0-5); LYMPHOCYTES 20 % (16-52); MONOCYTES 13 % (0-8); NEUTROPHILS 58 % (35-75)
[2017-07-05 06:57] LABS: HYPOCHROMASIA 1+; MICROCYTOSIS 2+; PLATELET ESTIMATE NORMAL (NORMAL)
[2017-07-05 06:58] LABS: ANISOCYTOSIS 1+
[2017-07-05] MEDS: PIPERACILLIN/TAZOBACTAM SOD 4.5 GM in APPROPRIATE DILUENT 1 EA IV ×2 (08:07→16:41)
[2017-07-05] MEDS: DOCUSATE SODIUM 100 MG CAP PO ×2 (08:08→20:03)
[2017-07-05] MEDS: ENOXAPARIN 40 MG/0.4 ML SYRINGE (J1650) SC (08:08)
[2017-07-05] MEDS: MULTIVITAMINS/MINERALS THERAP 1 TAB PO (08:08)
[2017-07-05] MEDS: metroNIDAZOLE 500 MG in APPROPRIATE DILUENT 1 EA IV ×2 (11:05→18:41)
[2017-07-05] MEDS: OMEPRAZOLE 20 MG CAP PO (11:06)
[2017-07-05] MEDS ORDERED: LIDOCAINE 1% MDV 20ML VIAL As Ordered (15:49)
[2017-07-05] MEDS: POTASSIUM CHLORIDE 10 MEQ SR TABLET PO (18:41)
[2017-07-05] MEDS: SERTRALINE HCL 50 MG TAB PO (20:03)
[2017-07-05] MEDS: MORPHINE 4 MG/ML 1ML SYRINGE IV (21:41)
[2017-07-06] MEDS: PIPERACILLIN/TAZOBACTAM SOD 4.5 GM in APPROPRIATE DILUENT 1 EA IV ×3 (00:28→15:51)
[2017-07-06] MEDS: ONDANSETRON 4MG/2ML VIAL (J2405) IV ×4 (02:29→22:45)
[2017-07-06] MEDS: MORPHINE 4 MG/ML 1ML SYRINGE IV ×5 (02:29→22:46)
[2017-07-06] MEDS: metroNIDAZOLE 500 MG in APPROPRIATE DILUENT 1 EA IV ×3 (02:30→18:07)
[2017-07-06 06:34] LABS: HEMATOCRIT 27.1 % (42.0-52.0); HEMOGLOBIN 8.5 g/dl (14.0-18.0); MEAN CORPUSCULAR HGB CONC 31.4 g/dl (32.0-36.5); MEAN CORPUSCULAR VOLUME 70.2 fl (80.0-96.0); PLATELET COUNT, AUTOMATED 306 10^3/uL (150-450); RED BLOOD COUNT 3.86 10^6/uL (4.30-6.10); RED CELL DISTRIBUTION WIDTH 17.4 % (11.5-14.5); WHITE BLOOD COUNT 14.1 10^3/uL (4.0-10.0)
[2017-07-06 06:37] LABS: POSITIVE MORPH POS FLAG
[2017-07-06 06:40] LABS: ADD MANUAL DIFFER YES; DIFF SLIDE NUMBER 21; POS COUNT POS FLAG
[2017-07-06] MEDS: oxyCODONE 5MG TAB PO ×2 (06:49→15:52)
[2017-07-06 07:00] LABS: ALBUMIN 1.7 GM/DL (3.2-5.2); ALBUMIN/GLOBULIN RATIO 0.47 (1.00-1.93); ALKALINE PHOSPHATASE 79 U/L (45-117); ALT/SGPT 15 U/L (12-78); ANION GAP 7 MEQ/L (8-16); AST/SGOT 17 U/L (7-37); BILIRUBIN,TOTAL 0.3 MG/DL (0.2-1.0); BLOOD UREA NITROGEN 16 MG/DL (7-18); CALCIUM LEVEL 7.6 MG/DL (8.5-10.1); CARBON DIOXIDE LEVEL 32 MEQ/L (21-32); CHLORIDE LEVEL 100 MEQ/L (98-107); CREATININE FOR GFR 0.84 MG/DL (0.70-1.30); GLOMERULAR FILTRATION RATE > 60.0 (>60); GLUCOSE, FASTING 89 MG/DL (70-105); POTASSIUM SERUM 3.6 MEQ/L (3.5-5.1); SODIUM LEVEL 139 MEQ/L (136-145); TOTAL PROTEIN 5.3 GM/DL (6.4-8.2)
[2017-07-06 07:59] LABS: ANISOCYTOSIS 1+; BANDS 8 % (< 11); EOSINOPHILS 1 % (0-5); LYMPHOCYTES 12 % (16-52); METAMYELOCYTES 2 % (0-0); MONOCYTES 8 % (0-8); MYELOCYTES 8 % (0-0); NEUTROPHILS 61 % (35-75)
[2017-07-06 08:00] LABS: HYPOCHROMASIA 1+; PLATELET ESTIMATE NORMAL (NORMAL); POIKILOCYTOSIS 1+
[2017-07-06] MEDS: ENOXAPARIN 40 MG/0.4 ML SYRINGE (J1650) SC (08:41)
[2017-07-06] MEDS: MULTIVITAMINS/MINERALS THERAP 1 TAB PO (08:41)
[2017-07-06] MEDS: DOCUSATE SODIUM 100 MG CAP PO ×2 (08:42→20:32)
[2017-07-06] MEDS: OMEPRAZOLE 20 MG CAP PO (11:40)
[2017-07-06] MEDS ORDERED: LIDOCAINE 1% MDV 20ML VIAL As Ordered (14:23)
[2017-07-06] MEDS: SERTRALINE HCL 50 MG TAB PO (20:32)
[2017-07-07] MEDS: PIPERACILLIN/TAZOBACTAM SOD 4.5 GM in APPROPRIATE DILUENT 1 EA IV ×3 (00:20→17:38)
[2017-07-07] MEDS: oxyCODONE 5MG TAB PO ×3 (01:10→17:44)
[2017-07-07] MEDS: metroNIDAZOLE 500 MG in APPROPRIATE DILUENT 1 EA IV ×3 (03:32→17:38)
[2017-07-07] MEDS: MORPHINE 4 MG/ML 1ML SYRINGE IV ×4 (03:32→20:25)
[2017-07-07 06:29] LABS: HEMATOCRIT 25.9 % (42.0-52.0); HEMOGLOBIN 8.1 g/dl (14.0-18.0); MEAN CORPUSCULAR HEMOGLOBIN 21.8 pg (27.0-33.0); MEAN CORPUSCULAR HGB CONC 31.3 g/dl (32.0-36.5); MEAN CORPUSCULAR VOLUME 69.6 fl (80.0-96.0); PLATELET COUNT, AUTOMATED 317 10^3/uL (150-450); RED BLOOD COUNT 3.72 10^6/uL (4.30-6.10); RED CELL DISTRIBUTION WIDTH 17.7 % (11.5-14.5); WHITE BLOOD COUNT 14.9 10^3/uL (4.0-10.0)
[2017-07-07 06:34] LABS: ADD MANUAL DIFFER YES; DIFF SLIDE NUMBER 21; POS COUNT POS FLAG; POSITIVE DIFF POS FLAG; POSITIVE MORPH POS FLAG
[2017-07-07] MEDS: ONDANSETRON 4MG/2ML VIAL (J2405) IV ×3 (06:34→20:24)
[2017-07-07 06:52] LABS: ALBUMIN 1.6 GM/DL (3.2-5.2); ALBUMIN/GLOBULIN RATIO 0.39 (1.00-1.93); ALKALINE PHOSPHATASE 77 U/L (45-117); ALT/SGPT 12 U/L (12-78); ANION GAP 7 MEQ/L (8-16); AST/SGOT 20 U/L (7-37); BILIRUBIN,TOTAL 0.2 MG/DL (0.2-1.0); BLOOD UREA NITROGEN 9 MG/DL (7-18); CALCIUM LEVEL 7.7 MG/DL (8.5-10.1); CARBON DIOXIDE LEVEL 32 MEQ/L (21-32); CHLORIDE LEVEL 98 MEQ/L (98-107); CREATININE FOR GFR 0.77 MG/DL (0.70-1.30); GLOMERULAR FILTRATION RATE > 60.0 (>60); GLUCOSE, FASTING 97 MG/DL (70-105); POTASSIUM SERUM 3.4 MEQ/L (3.5-5.1); SODIUM LEVEL 137 MEQ/L (136-145); TOTAL PROTEIN 5.7 GM/DL (6.4-8.2)
[2017-07-07 06:54] LABS: ATYPICAL LYMPH 1 % (0-5); LYMPHOCYTES 30 % (16-52); METAMYELOCYTES 4 % (0-0); MONOCYTES 11 % (0-8); MYELOCYTES 2 % (0-0); NEUTROPHILS 52 % (35-75); PLATELET ESTIMATE NORMAL (NORMAL)
[2017-07-07 06:55] LABS: ANISOCYTOSIS 1+; HYPOCHROMASIA 1+; POIKILOCYTOSIS 1+
[2017-07-07] MEDS: DOCUSATE SODIUM 100 MG CAP PO ×2 (08:17→20:25)
[2017-07-07] MEDS: MULTIVITAMINS/MINERALS THERAP 1 TAB PO (08:17)
[2017-07-07] MEDS: ENOXAPARIN 40 MG/0.4 ML SYRINGE (J1650) SC (08:18)
[2017-07-07] MEDS: OMEPRAZOLE 20 MG CAP PO (12:09)
[2017-07-07] MEDS: SERTRALINE HCL 50 MG TAB PO (20:25)
[2017-07-08] MEDS: PIPERACILLIN/TAZOBACTAM SOD 4.5 GM in APPROPRIATE DILUENT 1 EA IV ×3 (00:01→15:14)
[2017-07-08] MEDS: MORPHINE 4 MG/ML 1ML SYRINGE IV ×5 (00:49→19:41)
[2017-07-08] MEDS: metroNIDAZOLE 500 MG in APPROPRIATE DILUENT 1 EA IV ×2 (02:51→10:37)
[2017-07-08] MEDS: oxyCODONE 5MG TAB PO ×3 (02:52→22:16)
[2017-07-08] MEDS: ONDANSETRON 4MG/2ML VIAL (J2405) IV ×3 (04:08→18:31)
[2017-07-08 06:09] LABS: HEMATOCRIT 25.5 % (42.0-52.0); HEMOGLOBIN 7.9 g/dl (14.0-18.0); MEAN CORPUSCULAR HEMOGLOBIN 21.4 pg (27.0-33.0); MEAN CORPUSCULAR VOLUME 69.1 fl (80.0-96.0); PLATELET COUNT, AUTOMATED 331 10^3/uL (150-450); RED BLOOD COUNT 3.69 10^6/uL (4.30-6.10); RED CELL DISTRIBUTION WIDTH 18.2 % (11.5-14.5); WHITE BLOOD COUNT 13.5 10^3/uL (4.0-10.0)
[2017-07-08 06:25] LABS: ADD MANUAL DIFFER YES; DIFF SLIDE NUMBER 8; POS COUNT POS FLAG; POSITIVE DIFF POS FLAG; POSITIVE MORPH POS FLAG
[2017-07-08 06:26] LABS: ALBUMIN 1.6 GM/DL (3.2-5.2); ALBUMIN/GLOBULIN RATIO 0.36 (1.00-1.93); ALKALINE PHOSPHATASE 76 U/L (45-117); ALT/SGPT 9 U/L (12-78); ANION GAP 4 MEQ/L (8-16); AST/SGOT 17 U/L (7-37); BILIRUBIN,TOTAL 0.2 MG/DL (0.2-1.0); BLOOD UREA NITROGEN 9 MG/DL (7-18); CALCIUM LEVEL 7.6 MG/DL (8.5-10.1); CARBON DIOXIDE LEVEL 33 MEQ/L (21-32); CHLORIDE LEVEL 98 MEQ/L (98-107); CREATININE FOR GFR 0.72 MG/DL (0.70-1.30); GLOMERULAR FILTRATION RATE > 60.0 (>60); GLUCOSE, FASTING 96 MG/DL (70-105); POTASSIUM SERUM 3.1 MEQ/L (3.5-5.1); SODIUM LEVEL 135 MEQ/L (136-145)
[2017-07-08 07:03] LABS: BANDS 5 % (< 11); EOSINOPHILS 1 % (0-5); LYMPHOCYTES 20 % (16-52); METAMYELOCYTES 2 % (0-0); MONOCYTES 13 % (0-8); MYELOCYTES 3 % (0-0); NEUTROPHILS 56 % (35-75)
[2017-07-08 07:04] LABS: HYPOCHROMASIA 2+; MICROCYTOSIS 3+; PLATELET ESTIMATE NORMAL (NORMAL); POIKILOCYTOSIS 1+
[2017-07-08] MEDS: POTASSIUM CHLORIDE 10 MEQ SR TABLET PO (08:21)
[2017-07-08] MEDS: ENOXAPARIN 40 MG/0.4 ML SYRINGE (J1650) SC (08:22)
[2017-07-08] MEDS: DOCUSATE SODIUM 100 MG CAP PO ×2 (08:22→22:15)
[2017-07-08] MEDS: MULTIVITAMINS/MINERALS THERAP 1 TAB PO (08:22)
[2017-07-08] MEDS: ACETAMINOPHEN TAB 650MG DOSE (2X325MG) PO ×2 (09:10→19:46)
[2017-07-08 10:12] LABS: LDH LACTATE DEHYDROGENASE 174 U/L (87-241)
[2017-07-08] MEDS: OMEPRAZOLE 20 MG CAP PO (11:42)
[2017-07-08] MEDS ORDERED: LIDOCAINE 1% MDV 20ML VIAL As Ordered (12:17)
[2017-07-08 13:53] LABS: PH BODY FLUID 7.545 UNITS (NOT ESTABLISHED); SOURCE, BODY FLUID pH PLEURAL
[2017-07-08 14:01] LABS: BF MONONUCLEAR CELL % 73.5 % (0-0); BF POLYMORPHONUCLEAR CELL % 26.5 % (0-0); RBC BODY FLUID 8 10^3/uL (<2); WBC BODY FLUID 867 /uL (0-10)
[2017-07-08 14:02] LABS: SOURCE, BODY FLUID PLEURAL
[2017-07-08 14:03] LABS: APPEARANCE, BODY FLUID CLOUDY (CLEAR); BF DIFF IF INDICATED? YES (NO); PLEURAL FL COLOR PALE YELLOW (COLORLESS)
[2017-07-08 14:48] LABS: AMYLASE, BODY FLUID 36 U/L (NOT ESTABLISHED); CHOLESTEROL, BODY FLUID < 50 MG/DL (NOT ESTABLISHED); LDH, BODY FLUID 337 U/L (NOT ESTABLISHED); SOURCE, BODY FLUID ALBUMIN PLEURAL; SOURCE, BODY FLUID AMYLASE PLEURAL; SOURCE, BODY FLUID CHOL PLEURAL; SOURCE, BODY FLUID GLUCOSE PLEURAL; SOURCE, BODY FLUID LDH PLEURAL; SOURCE, BODY FLUID TOT PROTEIN PLEURAL; SOURCE, BODY FLUID TRIG PLEURAL; TOTAL PROTEIN, BODY FLUID 3.7 G/DL (NOT ESTABLISHED); TRIGLYCERIDE, BODY FLUID 53 MG/DL (NOT ESTABLISHED)
[2017-07-08] MEDS ORDERED: SLF 3 ML SYR IV (15:15)
[2017-07-08 17:02] LABS: CARCINOEMBRYONIC ANTIGEN 65.9 NG/ML (<2.5)
[2017-07-08] MEDS: SLF 3 ML SYR IV (22:17)
[2017-07-08] MEDS: SERTRALINE HCL 50 MG TAB PO (22:17)
[2017-07-09] MEDS: MORPHINE 4 MG/ML 1ML SYRINGE IV ×7 (00:02→20:24)
[2017-07-09 03:51] LABS: HEMATOCRIT 29.1 % (42.0-52.0); HEMOGLOBIN 8.9 g/dl (14.0-18.0); MEAN CORPUSCULAR HEMOGLOBIN 21.8 pg (27.0-33.0); MEAN CORPUSCULAR HGB CONC 30.6 g/dl (32.0-36.5); MEAN CORPUSCULAR VOLUME 71.3 fl (80.0-96.0); PLATELET COUNT, AUTOMATED 390 10^3/uL (150-450); RED BLOOD COUNT 4.08 10^6/uL (4.30-6.10); RED CELL DISTRIBUTION WIDTH 18.8 % (11.5-14.5); WHITE BLOOD COUNT 15.8 10^3/uL (4.0-10.0)
[2017-07-09] MEDS: ONDANSETRON 4MG/2ML VIAL (J2405) IV ×4 (04:00→23:17)
[2017-07-09 04:09] LABS: POSITIVE DIFF POS FLAG
[2017-07-09 04:10] LABS: ADD MANUAL DIFFER YES; DIFF SLIDE NUMBER 6; POS COUNT POS FLAG; POSITIVE MORPH POS FLAG
[2017-07-09 04:14] LABS: ALBUMIN 1.7 GM/DL (3.2-5.2); ALBUMIN/GLOBULIN RATIO 0.34 (1.00-1.93); ALKALINE PHOSPHATASE 83 U/L (45-117); ALT/SGPT 13 U/L (12-78); ANION GAP 4 MEQ/L (8-16); AST/SGOT 16 U/L (7-37); BILIRUBIN,TOTAL 0.2 MG/DL (0.2-1.0); BLOOD UREA NITROGEN 9 MG/DL (7-18); CALCIUM LEVEL 7.9 MG/DL (8.5-10.1); CARBON DIOXIDE LEVEL 35 MEQ/L (21-32); CHLORIDE LEVEL 98 MEQ/L (98-107); CREATININE FOR GFR 0.89 MG/DL (0.70-1.30); GLOMERULAR FILTRATION RATE > 60.0 (>60); GLUCOSE, FASTING 106 MG/DL (70-105); MAGNESIUM LEVEL 2.5 MG/DL (1.8-2.4); POTASSIUM SERUM 4.3 MEQ/L (3.5-5.1); SODIUM LEVEL 137 MEQ/L (136-145); TOTAL PROTEIN 6.7 GM/DL (6.4-8.2)
[2017-07-09 05:41] LABS: ANISOCYTOSIS 2+; ATYPICAL LYMPH 1 % (0-5); BANDS 1 % (< 11); EOSINOPHILS 1 % (0-5); LYMPHOCYTES 15 % (16-52); MONOCYTES 10 % (0-8); NEUTROPHILS 72 % (35-75); PLATELET ESTIMATE NORMAL (NORMAL)
[2017-07-09 05:42] LABS: HYPOCHROMASIA 1+; MICROCYTOSIS 2+
[2017-07-09] MEDS: oxyCODONE 5MG TAB PO ×3 (06:15→23:17)
[2017-07-09] MEDS: SLF 3 ML SYR IV ×3 (06:16→20:38)
[2017-07-09] MEDS: POTASSIUM CHLORIDE 10 MEQ SR TABLET PO (08:08)
[2017-07-09] MEDS: DOCUSATE SODIUM 100 MG CAP PO ×2 (08:08→20:23)
[2017-07-09] MEDS: PIPERACILLIN/TAZOBACTAM SOD 4.5 GM in APPROPRIATE DILUENT 1 EA IV ×4 (08:08→23:17)
[2017-07-09] MEDS: MULTIVITAMINS/MINERALS THERAP 1 TAB PO (08:08)
[2017-07-09] MEDS: ENOXAPARIN 40 MG/0.4 ML SYRINGE (J1650) SC (08:09)
[2017-07-09] MEDS: MAGNESIUM CITRATE 300 ML BTL PO (12:19)
[2017-07-09] MEDS: OMEPRAZOLE 20 MG CAP PO (12:19)
[2017-07-09] MEDS: SERTRALINE HCL 50 MG TAB PO (20:24)
[2017-07-10] MEDS: MORPHINE 4 MG/ML 1ML SYRINGE IV ×6 (00:54→21:46)
[2017-07-10] MEDS: SLF 3 ML SYR IV ×3 (04:58→21:07)
[2017-07-10 05:33] LABS: BASO % 0.2 % (0.0-1.0); EOS # 0.1 10^3/uL (0.0-0.50); EOS % 0.5 % (0.0-3.0); HEMATOCRIT 26.6 % (42.0-52.0); HEMOGLOBIN 8.1 g/dl (14.0-18.0); IMMATURE GRANULOCYTE # 0.4 10^3/uL (0-0); IMMATURE GRANULOCYTE % 2.6 % (0-0); LYMPH # 1.8 10^3/uL (1.5-4.5); LYMPH % 13.2 % (24.0-44.0); MEAN CORPUSCULAR HEMOGLOBIN 21.5 pg (27.0-33.0); MEAN CORPUSCULAR HGB CONC 30.5 g/dl (32.0-36.5); MEAN CORPUSCULAR VOLUME 70.6 fl (80.0-96.0); MONO # 1.5 10^3/uL (0.0-0.8); MONO % 11.1 % (0.0-5.0); NEUTROPHILS # 9.9 10^3/uL (1.8-7.7); NEUTROPHILS % 72.4 % (36.0-66.0); PLATELET COUNT, AUTOMATED 324 10^3/uL (150-450); RED BLOOD COUNT 3.77 10^6/uL (4.30-6.10); RED CELL DISTRIBUTION WIDTH 18.8 % (11.5-14.5); WHITE BLOOD COUNT 13.7 10^3/uL (4.0-10.0)
[2017-07-10 05:48] LABS: MAGNESIUM LEVEL 2.4 MG/DL (1.8-2.4)
[2017-07-10] MEDS: POTASSIUM CHLORIDE 10 MEQ SR TABLET PO (07:31)
[2017-07-10] MEDS: MULTIVITAMINS/MINERALS THERAP 1 TAB PO (07:31)
[2017-07-10] MEDS: DOCUSATE SODIUM 100 MG CAP PO ×2 (07:31→21:45)
[2017-07-10] MEDS: PIPERACILLIN/TAZOBACTAM SOD 4.5 GM in APPROPRIATE DILUENT 1 EA IV ×3 (07:32→23:52)
[2017-07-10] MEDS: ONDANSETRON 4MG/2ML VIAL (J2405) IV ×3 (07:32→19:45)
[2017-07-10] MEDS: ENOXAPARIN 40 MG/0.4 ML SYRINGE (J1650) SC (07:32)
[2017-07-10] MEDS: oxyCODONE 5MG TAB PO ×3 (07:40→23:53)
[2017-07-10 09:56] LABS: ANION GAP 5 MEQ/L (8-16); BLOOD UREA NITROGEN 10 MG/DL (7-18); CALCIUM LEVEL 7.5 MG/DL (8.5-10.1); CARBON DIOXIDE LEVEL 32 MEQ/L (21-32); CHLORIDE LEVEL 96 MEQ/L (98-107); CREATININE FOR GFR 0.81 MG/DL (0.70-1.30); GLOMERULAR FILTRATION RATE > 60.0 (>60); GLUCOSE, FASTING 122 MG/DL (70-105); INR 1.26; POTASSIUM SERUM 3.9 MEQ/L (3.5-5.1); PROTHROMBIN TIME 16.1 SECONDS (12.4-14.5); SODIUM LEVEL 133 MEQ/L (136-145)
[2017-07-10 09:57] LABS: PARTIAL THROMBOPLASTIN TIME 38.8 SECONDS (26.8-37.9)
[2017-07-10] MEDS: OMEPRAZOLE 20 MG CAP PO (12:15)
[2017-07-10] MEDS: MAGNESIUM CITRATE 300 ML BTL PO (13:40)
[2017-07-10 15:31] LABS: PARTIAL THROMBOPLASTIN TIME 34.9 SECONDS (26.8-37.9)
[2017-07-10] MEDS: HEPARIN SOD (PORCINE) 5000 UNITS/ML VIAL IV ×2 (16:07→22:20)
[2017-07-10] MEDS: HEPARIN DRIP 25,000 UNITS in APPROPRIATE DILUENT 1 EA IV (16:09)
[2017-07-10] MEDS: SODIUM CHLORIDE 0.9% INJ 10 ML SYR IV ×2 (17:42→19:45)
[2017-07-10 21:20] LABS: PARTIAL THROMBOPLASTIN TIME 56.8 SECONDS (26.8-37.9)
[2017-07-10] MEDS: SERTRALINE HCL 50 MG TAB PO (21:45)
[2017-07-11] MEDS: MORPHINE 4 MG/ML 1ML SYRINGE IV ×2 (03:05→07:20)
[2017-07-11] MEDS: SODIUM CHLORIDE 0.9% INJ 10 ML SYR IV ×2 (03:05→09:49)
[2017-07-11] MEDS: ONDANSETRON 4MG/2ML VIAL (J2405) IV (03:05)
[2017-07-11] MEDS: SLF 3 ML SYR IV ×3 (05:11→21:26)
[2017-07-11 05:19] LABS: HEMATOCRIT 24.6 % (42.0-52.0); HEMOGLOBIN 7.6 g/dl (14.0-18.0); MEAN CORPUSCULAR HEMOGLOBIN 21.7 pg (27.0-33.0); MEAN CORPUSCULAR HGB CONC 30.9 g/dl (32.0-36.5); MEAN CORPUSCULAR VOLUME 70.3 fl (80.0-96.0); PLATELET COUNT, AUTOMATED 328 10^3/uL (150-450); RED CELL DISTRIBUTION WIDTH 18.6 % (11.5-14.5); WHITE BLOOD COUNT 13.2 10^3/uL (4.0-10.0)
[2017-07-11 05:31] LABS: PARTIAL THROMBOPLASTIN TIME 54.1 SECONDS (26.8-37.9)
[2017-07-11 05:37] LABS: MAGNESIUM LEVEL 2.4 MG/DL (1.8-2.4)
[2017-07-11] MEDS: oxyCODONE 5MG TAB PO (08:02)
[2017-07-11] MEDS: PIPERACILLIN/TAZOBACTAM SOD 4.5 GM in APPROPRIATE DILUENT 1 EA IV ×2 (09:49→18:39)
[2017-07-11] MEDS: POTASSIUM CHLORIDE 10 MEQ SR TABLET PO (10:00)
[2017-07-11] MEDS: MULTIVITAMINS/MINERALS THERAP 1 TAB PO (10:00)
[2017-07-11] MEDS: DOCUSATE SODIUM 100 MG CAP PO ×2 (10:00→21:00)
[2017-07-11] MEDS ORDERED: fentaNYL 100 MCG/2 ML INJECTION (J3010) As Ordered ×3 (10:19→15:23)
[2017-07-11] MEDS ORDERED: METOCLOPRAMIDE INJ 10MG/2ML VIAL (J2765) As Ordered (10:19)
[2017-07-11] MEDS ORDERED: PROPOFOL 200 MG/20 ML VIAL As Ordered (10:19)
[2017-07-11] MEDS ORDERED: ROCURONIUM BROMIDE 50 MG/5 ML VIAL As Ordered ×2 (10:19→12:29)
[2017-07-11] MEDS ORDERED: MIDAZOLAM INJ 2 MG/2 ML VIAL (J2250) As Ordered (10:19)
[2017-07-11] MEDS ORDERED: ONDANSETRON 4MG/2ML VIAL (J2405) As Ordered ×2 (10:19→15:23)
[2017-07-11 11:52] LABS: IMMEDIATE SPIN CROSSMATCH 1 2
[2017-07-11 13:33] LABS: IMMEDIATE SPIN CROSSMATCH 1 2
[2017-07-11] MEDS ORDERED: HYDROmorphone HCL 2 MG/ML 1ML VIAL (J1170) As Ordered (14:28)
[2017-07-11] MEDS ORDERED: ONDANSETRON 4MG/2ML VIAL (J2405) IV (15:30)
[2017-07-11] MEDS: fentaNYL 100 MCG/2 ML INJECTION (J3010) IV ×4 (15:30→15:45)
[2017-07-11] MEDS ORDERED: MORPHINE 10 MG/ML 1ML VIAL As Ordered (15:43)
[2017-07-11] MEDS: MORPHINE 10 MG/ML 1ML VIAL IV ×5 (15:50→16:10)
[2017-07-11] MEDS ORDERED: HYDROmorphone HCL 1 MG/ML SYRINGE (J1170) As Ordered (16:12)
[2017-07-11] MEDS: HYDROmorphone HCL 1 MG/ML SYRINGE (J1170) IV ×5 (16:18→16:42)
[2017-07-11] MEDS ORDERED: KETOROLAC 30 MG/ML VIAL (J1885) As Ordered (16:24)
[2017-07-11] MEDS: KETOROLAC 30 MG/ML VIAL (J1885) IV (16:30)
[2017-07-11] MEDS ORDERED: NALOXONE INJ 0.4 MG/1 ML VIAL (J2310) IV (17:15)
[2017-07-11] MEDS ORDERED: EPIDURAL/PCA KEYS XX (17:15)
[2017-07-11] MEDS ORDERED: diphenhydrAMINE INJ 50MG/ML VIAL (J1200) IV (17:15)
[2017-07-11] MEDS ORDERED: NALBUPHINE HCL 10 MG/ML AMP (J2300) IV (17:15)
[2017-07-11] MEDS ORDERED: MORPHINE 1MG/ML IN 0.9% NACL 100ML IV BAG As Ordered (17:21)
[2017-07-11] MEDS: MORPHINE 1MG/ML IN 0.9% NACL 100ML IV BAG IV (17:30)
[2017-07-11] MEDS: OMEPRAZOLE 20 MG CAP PO (17:58)
[2017-07-11] MEDS: LR 1,000 ML IV (18:14)
[2017-07-11] MEDS: SERTRALINE HCL 50 MG TAB PO (21:00)
[2017-07-12] MEDS: PIPERACILLIN/TAZOBACTAM SOD 4.5 GM in APPROPRIATE DILUENT 1 EA IV ×4 (00:23→23:45)
[2017-07-12] MEDS: ONDANSETRON 4MG/2ML VIAL (J2405) IV ×3 (01:03→22:05)
[2017-07-12] MEDS: SLF 3 ML SYR IV ×3 (05:55→22:00)
[2017-07-12 06:42] LABS: RED BLOOD COUNT 5.37 10^6/uL (4.30-6.10); WHITE BLOOD COUNT 27.1 10^3/uL (4.0-10.0)
[2017-07-12 06:44] LABS: HEMATOCRIT 40.5 % (42.0-52.0); MEAN CORPUSCULAR HEMOGLOBIN 24.4 pg (27.0-33.0); MEAN CORPUSCULAR HGB CONC 32.3 g/dl (32.0-36.5); MEAN CORPUSCULAR VOLUME 75.4 fl (80.0-96.0); PLATELET COUNT, AUTOMATED 437 10^3/uL (150-450); RED CELL DISTRIBUTION WIDTH 20.9 % (11.5-14.5)
[2017-07-12 06:45] LABS: BEDSIDE GLUCOSE 88 MG/DL (70-105)
[2017-07-12 06:46] LABS: BEDSIDE GLUCOSE 95 MG/DL (70-105)
[2017-07-12 06:46] LABS: HEMOGLOBIN 13.1 g/dl (14.0-18.0)
[2017-07-12 07:06] LABS: MAGNESIUM LEVEL 2.6 MG/DL (1.8-2.4)
[2017-07-12 07:17] LABS: ANION GAP 7 MEQ/L (8-16); BLOOD UREA NITROGEN 11 MG/DL (7-18); CALCIUM LEVEL 7.5 MG/DL (8.5-10.1); CARBON DIOXIDE LEVEL 26 MEQ/L (21-32); CHLORIDE LEVEL 107 MEQ/L (98-107); CREATININE FOR GFR 0.98 MG/DL (0.70-1.30); GLOMERULAR FILTRATION RATE > 60.0 (>60); GLUCOSE, FASTING 117 MG/DL (70-105); SODIUM LEVEL 140 MEQ/L (136-145)
[2017-07-12 07:20] LABS: POTASSIUM SERUM 5.2 MEQ/L (3.5-5.1)
[2017-07-12] MEDS: LR 1,000 ML IV ×3 (08:00→23:45)
[2017-07-12] MEDS ORDERED: HEPARIN DRIP 25,000 UNITS in APPROPRIATE DILUENT 1 EA IV (08:07)
[2017-07-12] MEDS: SODIUM CHLORIDE 0.9% INJ 10 ML SYR IV (08:57)
[2017-07-12] MEDS ORDERED: ENOXAPARIN 40 MG/0.4 ML SYRINGE (J1650) SC (09:00)
[2017-07-12 09:42] LABS: PARTIAL THROMBOPLASTIN TIME 31.7 SECONDS (26.8-37.9)
[2017-07-12] MEDS: KETOROLAC 30 MG/ML VIAL (J1885) IV ×2 (09:58→20:08)
[2017-07-12] MEDS: DOCUSATE SODIUM 100 MG CAP PO ×2 (09:59→21:00)
[2017-07-12] MEDS: MULTIVITAMINS/MINERALS THERAP 1 TAB PO (09:59)
[2017-07-12] MEDS: HEPARIN DRIP 25,000 UNITS in APPROPRIATE DILUENT 1 EA IV (10:12)
[2017-07-12] MEDS: HEPARIN SOD (PORCINE) 5000 UNITS/ML VIAL IV ×2 (10:13→17:40)
[2017-07-12] MEDS: MORPHINE 1MG/ML IN 0.9% NACL 100ML IV BAG IV (10:13)
[2017-07-12] MEDS: POTASSIUM CHLORIDE 10 MEQ SR TABLET PO (12:05)
[2017-07-12] MEDS: OMEPRAZOLE 20 MG CAP PO (12:53)
[2017-07-12] MEDS: PANTOPRAZOLE 40MG INJ (PROTONIX) (C9113) IV ×2 (15:52→21:59)
[2017-07-12 16:54] LABS: PARTIAL THROMBOPLASTIN TIME 25.9 SECONDS (26.8-37.9)
[2017-07-12] MEDS: SERTRALINE HCL 50 MG TAB PO (21:59)
[2017-07-13 00:24] LABS: PARTIAL THROMBOPLASTIN TIME 49.9 SECONDS (26.8-37.9)
[2017-07-13] MEDS: HEPARIN SOD (PORCINE) 5000 UNITS/ML VIAL IV ×2 (01:07→08:12)
[2017-07-13] MEDS: HEPARIN DRIP 25,000 UNITS in APPROPRIATE DILUENT 1 EA IV ×2 (04:30→16:45)
[2017-07-13] MEDS: SLF 3 ML SYR IV ×3 (04:31→20:48)
[2017-07-13] MEDS: LR 1,000 ML IV ×4 (06:48→20:50)
[2017-07-13 07:38] LABS: PARTIAL THROMBOPLASTIN TIME 38.8 SECONDS (26.8-37.9)
[2017-07-13 07:41] LABS: HEMATOCRIT 30.1 % (42.0-52.0); MEAN CORPUSCULAR HEMOGLOBIN 24.6 pg (27.0-33.0); MEAN CORPUSCULAR HGB CONC 32.2 g/dl (32.0-36.5); MEAN CORPUSCULAR VOLUME 76.2 fl (80.0-96.0); PLATELET COUNT, AUTOMATED 285 10^3/uL (150-450); RED BLOOD COUNT 3.95 10^6/uL (4.30-6.10); RED CELL DISTRIBUTION WIDTH 20.9 % (11.5-14.5); WHITE BLOOD COUNT 23.4 10^3/uL (4.0-10.0)
[2017-07-13 07:53] LABS: HEMOGLOBIN 9.7 g/dl (14.0-18.0)
[2017-07-13 07:54] LABS: MAGNESIUM LEVEL 3.3 MG/DL (1.8-2.4)
[2017-07-13] MEDS: SODIUM CHLORIDE 0.9% INJ 10 ML SYR IV (08:04)
[2017-07-13] MEDS: DOCUSATE SODIUM 100 MG CAP PO ×2 (09:40→20:47)
[2017-07-13] MEDS: MULTIVITAMINS/MINERALS THERAP 1 TAB PO (09:40)
[2017-07-13] MEDS: PIPERACILLIN/TAZOBACTAM SOD 4.5 GM in APPROPRIATE DILUENT 1 EA IV ×3 (09:42→23:52)
[2017-07-13] MEDS: PANTOPRAZOLE 40MG INJ (PROTONIX) (C9113) IV ×2 (09:42→20:47)
[2017-07-13 10:14] LABS: ANION GAP 6 MEQ/L (8-16); BLOOD UREA NITROGEN 22 MG/DL (7-18); CALCIUM LEVEL 7.2 MG/DL (8.5-10.1); CARBON DIOXIDE LEVEL 29 MEQ/L (21-32); CHLORIDE LEVEL 107 MEQ/L (98-107); CREATININE FOR GFR 1.03 MG/DL (0.70-1.30); GLOMERULAR FILTRATION RATE > 60.0 (>60); GLUCOSE, FASTING 121 MG/DL (70-105); POTASSIUM SERUM 4.4 MEQ/L (3.5-5.1); SODIUM LEVEL 142 MEQ/L (136-145)
[2017-07-13] MEDS: LIDOCAINE W/EPINEPHRINE 1% 20ML VIAL As Ordered (12:34)
[2017-07-13] MEDS ORDERED: PROPOFOL 200 MG/20 ML VIAL As Ordered (12:50)
[2017-07-13] MEDS ORDERED: fentaNYL 250 MCG/5 ML INJECTION (J3010) As Ordered (12:50)
[2017-07-13] MEDS ORDERED: MIDAZOLAM INJ 2 MG/2 ML VIAL (J2250) As Ordered (12:50)
[2017-07-13] MEDS ORDERED: ROCURONIUM BROMIDE 50 MG/5 ML VIAL As Ordered (12:50)
[2017-07-13] MEDS ORDERED: LIDOCAINE 2% INJ 100 MG/5 ML SDV (FOR ANES.) As Ordered (12:50)
[2017-07-13] MEDS ORDERED: PHENYLEPHRINE INJ 10MG/ML VIAL (J2370) As Ordered (13:37)
[2017-07-13] MEDS ORDERED: SUCCINYLCHOLINE 100 MG/5 ML SYRINGE (J0330) As Ordered (13:37)
[2017-07-13] MEDS ORDERED: ONDANSETRON 4MG/2ML VIAL (J2405) As Ordered (13:41)
[2017-07-13] MEDS ORDERED: KETOROLAC 60 MG/2 ML VIAL (J1885) As Ordered (13:41)
[2017-07-13] MEDS ORDERED: HYDROmorphone HCL 1 MG/ML SYRINGE (J1170) As Ordered (14:16)
[2017-07-13] MEDS: HYDROmorphone HCL 1 MG/ML SYRINGE (J1170) IV ×2 (14:20→14:35)
[2017-07-13] MEDS ORDERED: fentaNYL 100 MCG/2 ML INJECTION (J3010) IV (14:45)
[2017-07-13] MEDS ORDERED: ONDANSETRON 4MG/2ML VIAL (J2405) IV (14:45)
[2017-07-13] MEDS: ONDANSETRON 4MG/2ML VIAL (J2405) IV (16:52)
[2017-07-13] MEDS: MORPHINE 1MG/ML IN 0.9% NACL 100ML IV BAG IV (17:36)
[2017-07-13] MEDS: SERTRALINE HCL 50 MG TAB PO (20:47)
[2017-07-13 23:06] LABS: PARTIAL THROMBOPLASTIN TIME 77.5 SECONDS (26.8-37.9)
[2017-07-14] MEDS: HEPARIN DRIP 25,000 UNITS in APPROPRIATE DILUENT 1 EA IV ×2 (02:40→15:16)
[2017-07-14 05:00] LABS: HEMATOCRIT 26.6 % (42.0-52.0); HEMOGLOBIN 8.4 g/dl (14.0-18.0); MEAN CORPUSCULAR HEMOGLOBIN 24.6 pg (27.0-33.0); MEAN CORPUSCULAR HGB CONC 31.6 g/dl (32.0-36.5); PLATELET COUNT, AUTOMATED 336 10^3/uL (150-450); RED BLOOD COUNT 3.41 10^6/uL (4.30-6.10); RED CELL DISTRIBUTION WIDTH 21.2 % (11.5-14.5)
[2017-07-14 05:19] LABS: PARTIAL THROMBOPLASTIN TIME 79.5 SECONDS (26.8-37.9)
[2017-07-14 05:26] LABS: ALBUMIN 1.1 GM/DL (3.2-5.2); ALBUMIN/GLOBULIN RATIO 0.23 (1.00-1.93); ALKALINE PHOSPHATASE 53 U/L (45-117); ALT/SGPT 7 U/L (12-78); ANION GAP 6 MEQ/L (8-16); AST/SGOT 16 U/L (7-37); BILIRUBIN,TOTAL 0.4 MG/DL (0.2-1.0); BLOOD UREA NITROGEN 20 MG/DL (7-18); CALCIUM LEVEL 7.4 MG/DL (8.5-10.1); CARBON DIOXIDE LEVEL 31 MEQ/L (21-32); CHLORIDE LEVEL 106 MEQ/L (98-107); CREATININE FOR GFR 0.89 MG/DL (0.70-1.30); GLOMERULAR FILTRATION RATE > 60.0 (>60); GLUCOSE, FASTING 81 MG/DL (70-105); SODIUM LEVEL 143 MEQ/L (136-145); TOTAL PROTEIN 5.9 GM/DL (6.4-8.2)
[2017-07-14] MEDS: SLF 3 ML SYR IV ×3 (05:59→20:36)
[2017-07-14] MEDS: LR 1,000 ML IV (06:46)
[2017-07-14] MEDS: PIPERACILLIN/TAZOBACTAM SOD 4.5 GM in APPROPRIATE DILUENT 1 EA IV ×2 (08:07→15:52)
[2017-07-14] MEDS: DOCUSATE SODIUM 100 MG CAP PO ×2 (08:07→20:35)
[2017-07-14] MEDS: MULTIVITAMINS/MINERALS THERAP 1 TAB PO (08:07)
[2017-07-14] MEDS: PANTOPRAZOLE 40MG INJ (PROTONIX) (C9113) IV ×2 (08:08→20:34)
[2017-07-14] MEDS: SODIUM CHLORIDE 0.9% INJ 10 ML SYR IV (08:08)
[2017-07-14] MEDS: oxyCODONE 5MG TAB PO ×2 (08:48→15:52)
[2017-07-14] MEDS: MORPHINE 4 MG/ML 1ML SYRINGE IV ×3 (12:22→22:01)
[2017-07-14] MEDS: ONDANSETRON 4MG/2ML VIAL (J2405) IV ×2 (12:33→17:58)
[2017-07-14] MEDS: ACETAMINOPHEN TAB 650MG DOSE (2X325MG) PO ×2 (16:16→20:36)
[2017-07-14] MEDS: SERTRALINE HCL 50 MG TAB PO (20:34)
[2017-07-14] MEDS: KETOROLAC 30 MG/ML VIAL (J1885) IV (20:35)
[2017-07-15] MEDS: PIPERACILLIN/TAZOBACTAM SOD 4.5 GM in APPROPRIATE DILUENT 1 EA IV ×3 (00:50→15:21)
[2017-07-15] MEDS: oxyCODONE 5MG TAB PO ×3 (00:50→16:51)
[2017-07-15] MEDS: ONDANSETRON 4MG/2ML VIAL (J2405) IV ×3 (00:52→22:12)
[2017-07-15] MEDS: MORPHINE 4 MG/ML 1ML SYRINGE IV ×4 (03:25→22:13)
[2017-07-15] MEDS: SLF 3 ML SYR IV ×3 (03:26→21:52)
[2017-07-15] MEDS: HEPARIN DRIP 25,000 UNITS in APPROPRIATE DILUENT 1 EA IV (04:25)
[2017-07-15 05:16] LABS: HEMATOCRIT 26.1 % (42.0-52.0); HEMOGLOBIN 8.3 g/dl (14.0-18.0); MEAN CORPUSCULAR HEMOGLOBIN 24.6 pg (27.0-33.0); MEAN CORPUSCULAR HGB CONC 31.8 g/dl (32.0-36.5); MEAN CORPUSCULAR VOLUME 77.4 fl (80.0-96.0); PLATELET COUNT, AUTOMATED 310 10^3/uL (150-450); RED BLOOD COUNT 3.37 10^6/uL (4.30-6.10); RED CELL DISTRIBUTION WIDTH 21.3 % (11.5-14.5); WHITE BLOOD COUNT 13.2 10^3/uL (4.0-10.0)
[2017-07-15 05:34] LABS: PARTIAL THROMBOPLASTIN TIME 78.5 SECONDS (26.8-37.9)
[2017-07-15 05:36] LABS: ALBUMIN 1.1 GM/DL (3.2-5.2); ALBUMIN/GLOBULIN RATIO 0.22 (1.00-1.93); ALKALINE PHOSPHATASE 61 U/L (45-117); ALT/SGPT 7 U/L (12-78); ANION GAP 5 MEQ/L (8-16); AST/SGOT 16 U/L (7-37); BILIRUBIN,TOTAL 0.4 MG/DL (0.2-1.0); BLOOD UREA NITROGEN 15 MG/DL (7-18); CALCIUM LEVEL 7.1 MG/DL (8.5-10.1); CARBON DIOXIDE LEVEL 31 MEQ/L (21-32); CHLORIDE LEVEL 103 MEQ/L (98-107); CREATININE FOR GFR 0.78 MG/DL (0.70-1.30); GLOMERULAR FILTRATION RATE > 60.0 (>60); GLUCOSE, FASTING 99 MG/DL (70-105); MAGNESIUM LEVEL 2.8 MG/DL (1.8-2.4); POTASSIUM SERUM 3.6 MEQ/L (3.5-5.1); SODIUM LEVEL 139 MEQ/L (136-145); TOTAL PROTEIN 6.1 GM/DL (6.4-8.2)
[2017-07-15] MEDS: DOCUSATE SODIUM 100 MG CAP PO ×2 (08:43→21:51)
[2017-07-15] MEDS: MULTIVITAMINS/MINERALS THERAP 1 TAB PO (08:44)
[2017-07-15] MEDS: SODIUM CHLORIDE 0.9% INJ 10 ML SYR IV (08:45)
[2017-07-15] MEDS: PANTOPRAZOLE 40MG INJ (PROTONIX) (C9113) IV ×2 (08:46→21:51)
[2017-07-15] MEDS: ENOXAPARIN 100MG/1ML SYRINGE (J1650) SC ×2 (09:52→21:51)
[2017-07-15] MEDS: KETOROLAC 30 MG/ML VIAL (J1885) IV (14:45)
[2017-07-15] MEDS: SERTRALINE HCL 50 MG TAB PO (21:51)
[2017-07-16] MEDS: PIPERACILLIN/TAZOBACTAM SOD 4.5 GM in APPROPRIATE DILUENT 1 EA IV ×3 (01:04→16:59)
[2017-07-16] MEDS: oxyCODONE 5MG TAB PO ×3 (01:04→21:09)
[2017-07-16] MEDS: ONDANSETRON 4MG/2ML VIAL (J2405) IV ×3 (05:24→19:36)
[2017-07-16] MEDS: MORPHINE 4 MG/ML 1ML SYRINGE IV ×4 (05:25→19:36)
[2017-07-16] MEDS: SLF 3 ML SYR IV ×3 (05:25→21:08)
[2017-07-16 05:59] LABS: ALBUMIN 1.2 GM/DL (3.2-5.2); ALBUMIN/GLOBULIN RATIO 0.21 (1.00-1.93); ALKALINE PHOSPHATASE 74 U/L (45-117); ALT/SGPT < 6 U/L (12-78); ANION GAP 7 MEQ/L (8-16); AST/SGOT 16 U/L (7-37); BILIRUBIN,TOTAL 0.4 MG/DL (0.2-1.0); BLOOD UREA NITROGEN 10 MG/DL (7-18); CALCIUM LEVEL 7.6 MG/DL (8.5-10.1); CARBON DIOXIDE LEVEL 26 MEQ/L (21-32); CHLORIDE LEVEL 104 MEQ/L (98-107); CREATININE FOR GFR 0.69 MG/DL (0.70-1.30); GLOMERULAR FILTRATION RATE > 60.0 (>60); GLUCOSE, FASTING 81 MG/DL (70-105); POTASSIUM SERUM 4.2 MEQ/L (3.5-5.1); SODIUM LEVEL 137 MEQ/L (136-145); TOTAL PROTEIN 6.9 GM/DL (6.4-8.2)
[2017-07-16] MEDS: SODIUM CHLORIDE 0.9% INJ 10 ML SYR IV (09:07)
[2017-07-16] MEDS: PANTOPRAZOLE 40MG INJ (PROTONIX) (C9113) IV (09:07)
[2017-07-16] MEDS: DOCUSATE SODIUM 100 MG CAP PO ×2 (09:08→21:06)
[2017-07-16] MEDS: ENOXAPARIN 100MG/1ML SYRINGE (J1650) SC ×2 (09:08→21:08)
[2017-07-16] MEDS: MULTIVITAMINS/MINERALS THERAP 1 TAB PO (09:08)
[2017-07-16] MEDS: KETOROLAC 30 MG/ML VIAL (J1885) IV (17:02)
[2017-07-16] MEDS: PANTOPRAZOLE 40MG TAB (PROTONIX) PO (21:06)
[2017-07-16] MEDS: SERTRALINE HCL 50 MG TAB PO (21:06)
[2017-07-17] MEDS: PIPERACILLIN/TAZOBACTAM SOD 4.5 GM in APPROPRIATE DILUENT 1 EA IV ×3 (00:27→17:15)
[2017-07-17] MEDS: MORPHINE 4 MG/ML 1ML SYRINGE IV ×5 (01:08→22:30)
[2017-07-17] MEDS: SLF 3 ML SYR IV ×3 (05:13→21:11)
[2017-07-17] MEDS: oxyCODONE 5MG TAB PO ×3 (05:14→21:10)
[2017-07-17] MEDS: PANTOPRAZOLE 40MG TAB (PROTONIX) PO ×2 (08:53→21:11)
[2017-07-17] MEDS: MULTIVITAMINS/MINERALS THERAP 1 TAB PO (08:53)
[2017-07-17] MEDS: ONDANSETRON 4MG/2ML VIAL (J2405) IV ×3 (08:55→22:30)
[2017-07-17] MEDS: DOCUSATE SODIUM 100 MG CAP PO ×2 (08:55→21:10)
[2017-07-17] MEDS: SODIUM CHLORIDE 0.9% INJ 10 ML SYR IV (08:55)
[2017-07-17] MEDS: ENOXAPARIN 100MG/1ML SYRINGE (J1650) SC ×2 (11:35→21:11)
[2017-07-17] MEDS: PIPERACILLIN/TAZOBACTAM SOD 3.375 GM in APPROPRIATE DILUENT 1 EA IV (17:10)
[2017-07-17] MEDS: SERTRALINE HCL 50 MG TAB PO (21:10)
[2017-07-18] MEDS: MORPHINE 4 MG/ML 1ML SYRINGE IV (02:33)
[2017-07-18] MEDS: PIPERACILLIN/TAZOBACTAM SOD 3.375 GM in APPROPRIATE DILUENT 1 EA IV ×4 (05:08→23:17)
[2017-07-18] MEDS: SLF 3 ML SYR IV ×3 (05:08→22:00)
[2017-07-18] MEDS: oxyCODONE 5MG TAB PO ×2 (05:11→20:46)
[2017-07-18 05:23] LABS: BASO % 0.2 % (0.0-1.0); EOS % 0.1 % (0.0-3.0); HEMATOCRIT 25.5 % (42.0-52.0); IMMATURE GRANULOCYTE % 0.4 % (0-0); LYMPH # 1.1 10^3/uL (1.5-4.5); LYMPH % 11.5 % (24.0-44.0); MEAN CORPUSCULAR HEMOGLOBIN 23.9 pg (27.0-33.0); MEAN CORPUSCULAR HGB CONC 31.4 g/dl (32.0-36.5); MEAN CORPUSCULAR VOLUME 76.1 fl (80.0-96.0); MONO % 10.5 % (0.0-5.0); NEUTROPHILS # 7.6 10^3/uL (1.8-7.7); NEUTROPHILS % 77.3 % (36.0-66.0); PLATELET COUNT, AUTOMATED 335 10^3/uL (150-450); RED BLOOD COUNT 3.35 10^6/uL (4.30-6.10); RED CELL DISTRIBUTION WIDTH 20.9 % (11.5-14.5); WHITE BLOOD COUNT 9.8 10^3/uL (4.0-10.0)
[2017-07-18 05:45] LABS: ALBUMIN 1.1 GM/DL (3.2-5.2); ALBUMIN/GLOBULIN RATIO 0.19 (1.00-1.93); ALKALINE PHOSPHATASE 92 U/L (45-117); ALT/SGPT 7 U/L (12-78); ANION GAP 7 MEQ/L (8-16); AST/SGOT 12 U/L (7-37); BILIRUBIN,TOTAL 0.3 MG/DL (0.2-1.0); BLOOD UREA NITROGEN 9 MG/DL (7-18); CALCIUM LEVEL 8.1 MG/DL (8.5-10.1); CARBON DIOXIDE LEVEL 28 MEQ/L (21-32); CHLORIDE LEVEL 102 MEQ/L (98-107); CREATININE FOR GFR 0.56 MG/DL (0.70-1.30); GLOMERULAR FILTRATION RATE > 60.0 (>60); GLUCOSE, FASTING 106 MG/DL (70-105); POTASSIUM SERUM 3.7 MEQ/L (3.5-5.1); SODIUM LEVEL 137 MEQ/L (136-145); TOTAL PROTEIN 6.9 GM/DL (6.4-8.2)
[2017-07-18] MEDS: MORPHINE 2 MG/ML 1ML SYRINGE IV ×4 (08:22→23:17)
[2017-07-18] MEDS: PANTOPRAZOLE 40MG TAB (PROTONIX) PO ×2 (09:46→20:45)
[2017-07-18] MEDS: MULTIVITAMINS/MINERALS THERAP 1 TAB PO (09:46)
[2017-07-18] MEDS: SODIUM CHLORIDE 0.9% INJ 10 ML SYR IV (09:47)
[2017-07-18] MEDS: BISACODYL 10 MG SUPP PR (09:47)
[2017-07-18] MEDS: ENOXAPARIN 100MG/1ML SYRINGE (J1650) SC ×2 (10:14→23:16)
[2017-07-18] MEDS: ONDANSETRON 4MG/2ML VIAL (J2405) IV (17:43)
[2017-07-18] MEDS: SERTRALINE HCL 50 MG TAB PO (20:45)
[2017-07-19] MEDS: PIPERACILLIN/TAZOBACTAM SOD 3.375 GM in APPROPRIATE DILUENT 1 EA IV ×4 (03:45→21:50)
[2017-07-19] MEDS: MORPHINE 2 MG/ML 1ML SYRINGE IV ×4 (03:46→22:47)
[2017-07-19] MEDS: SLF 3 ML SYR IV ×3 (06:00→21:51)
[2017-07-19 06:55] LABS: HEMATOCRIT 24.5 % (42.0-52.0); HEMOGLOBIN 7.8 g/dl (14.0-18.0); MEAN CORPUSCULAR HGB CONC 31.8 g/dl (32.0-36.5); MEAN CORPUSCULAR VOLUME 75.4 fl (80.0-96.0); PLATELET COUNT, AUTOMATED 348 10^3/uL (150-450); RED BLOOD COUNT 3.25 10^6/uL (4.30-6.10); WHITE BLOOD COUNT 7.1 10^3/uL (4.0-10.0)
[2017-07-19 07:10] LABS: ANION GAP 7 MEQ/L (8-16); BLOOD UREA NITROGEN 10 MG/DL (7-18); CALCIUM LEVEL 7.9 MG/DL (8.5-10.1); CARBON DIOXIDE LEVEL 28 MEQ/L (21-32); CHLORIDE LEVEL 102 MEQ/L (98-107); CREATININE FOR GFR 0.56 MG/DL (0.70-1.30); GLOMERULAR FILTRATION RATE > 60.0 (>60); GLUCOSE, FASTING 108 MG/DL (70-100); MAGNESIUM LEVEL 1.9 MG/DL (1.8-2.4); POTASSIUM SERUM 3.8 MEQ/L (3.5-5.1); SODIUM LEVEL 137 MEQ/L (136-145)
[2017-07-19] MEDS: GASTROGRAFIN SOLUTION 30ML PO ×2 (08:45→09:15)
[2017-07-19] MEDS: ENOXAPARIN 100MG/1ML SYRINGE (J1650) SC ×2 (09:33→21:50)
[2017-07-19] MEDS: MULTIVITAMINS/MINERALS THERAP 1 TAB PO (09:33)
[2017-07-19] MEDS: PANTOPRAZOLE 40MG TAB (PROTONIX) PO ×2 (09:33→21:49)
[2017-07-19] MEDS: ONDANSETRON 4MG/2ML VIAL (J2405) IV (12:05)
[2017-07-19] MEDS: SERTRALINE HCL 50 MG TAB PO (21:49)
[2017-07-19] MEDS: oxyCODONE 5MG TAB PO (21:50)
[2017-07-20] MEDS: PIPERACILLIN/TAZOBACTAM SOD 3.375 GM in APPROPRIATE DILUENT 1 EA IV ×4 (04:39→22:11)
[2017-07-20] MEDS: MORPHINE 2 MG/ML 1ML SYRINGE IV ×4 (05:20→23:42)
[2017-07-20] MEDS: SLF 3 ML SYR IV ×3 (05:20→20:36)
[2017-07-20] MEDS: oxyCODONE 5MG TAB PO ×2 (06:39→20:36)
[2017-07-20 06:52] LABS: HEMATOCRIT 23.8 % (42.0-52.0); HEMOGLOBIN 7.6 g/dl (14.0-18.0); MEAN CORPUSCULAR HEMOGLOBIN 24.4 pg (27.0-33.0); MEAN CORPUSCULAR HGB CONC 31.9 g/dl (32.0-36.5); MEAN CORPUSCULAR VOLUME 76.3 fl (80.0-96.0); PLATELET COUNT, AUTOMATED 327 10^3/uL (150-450); RED BLOOD COUNT 3.12 10^6/uL (4.30-6.10); RED CELL DISTRIBUTION WIDTH 20.8 % (11.5-14.5); WHITE BLOOD COUNT 5.9 10^3/uL (4.0-10.0)
[2017-07-20 07:11] LABS: ANION GAP 9 MEQ/L (8-16); BLOOD UREA NITROGEN 10 MG/DL (7-18); CALCIUM LEVEL 8.3 MG/DL (8.5-10.1); CARBON DIOXIDE LEVEL 29 MEQ/L (21-32); CHLORIDE LEVEL 101 MEQ/L (98-107); CREATININE FOR GFR 0.56 MG/DL (0.70-1.30); GLOMERULAR FILTRATION RATE > 60.0 (>60); GLUCOSE, FASTING 84 MG/DL (70-100); POTASSIUM SERUM 3.7 MEQ/L (3.5-5.1); SODIUM LEVEL 139 MEQ/L (136-145)
[2017-07-20] MEDS: MULTIVITAMINS/MINERALS THERAP 1 TAB PO (09:16)
[2017-07-20] MEDS: PANTOPRAZOLE 40MG TAB (PROTONIX) PO ×2 (09:16→20:36)
[2017-07-20] MEDS: ENOXAPARIN 100MG/1ML SYRINGE (J1650) SC ×3 (09:17→22:11)
[2017-07-20] MEDS: GASTROGRAFIN SOLUTION 30ML PO ×2 (11:29→11:40)
[2017-07-20] MEDS ORDERED: ISOVUE-370 76% 100ML VIAL (Q9967) As Ordered (12:21)
[2017-07-20] MEDS: SERTRALINE HCL 50 MG TAB PO (20:36)
[2017-07-21] MEDS: MORPHINE 2 MG/ML 1ML SYRINGE IV ×4 (03:52→20:11)
[2017-07-21] MEDS: SLF 3 ML SYR IV ×3 (03:53→22:51)
[2017-07-21] MEDS: PIPERACILLIN/TAZOBACTAM SOD 3.375 GM in APPROPRIATE DILUENT 1 EA IV ×4 (03:53→22:50)
[2017-07-21 06:39] LABS: HEMATOCRIT 24.9 % (42.0-52.0); HEMOGLOBIN 7.8 g/dl (14.0-18.0); MEAN CORPUSCULAR HEMOGLOBIN 23.8 pg (27.0-33.0); MEAN CORPUSCULAR HGB CONC 31.3 g/dl (32.0-36.5); MEAN CORPUSCULAR VOLUME 75.9 fl (80.0-96.0); PLATELET COUNT, AUTOMATED 362 10^3/uL (150-450); RED BLOOD COUNT 3.28 10^6/uL (4.30-6.10); RED CELL DISTRIBUTION WIDTH 20.5 % (11.5-14.5); WHITE BLOOD COUNT 5.6 10^3/uL (4.0-10.0)
[2017-07-21 06:57] LABS: ANION GAP 5 MEQ/L (8-16); BLOOD UREA NITROGEN 11 MG/DL (7-18); CARBON DIOXIDE LEVEL 31 MEQ/L (21-32); CHLORIDE LEVEL 101 MEQ/L (98-107); GLOMERULAR FILTRATION RATE > 60.0 (>60); GLUCOSE, FASTING 91 MG/DL (70-100); MAGNESIUM LEVEL 2.2 MG/DL (1.8-2.4); POTASSIUM SERUM 3.7 MEQ/L (3.5-5.1); SODIUM LEVEL 137 MEQ/L (136-145)
[2017-07-21] MEDS: MULTIVITAMINS/MINERALS THERAP 1 TAB PO (09:14)
[2017-07-21] MEDS: PANTOPRAZOLE 40MG TAB (PROTONIX) PO ×2 (09:14→20:11)
[2017-07-21] MEDS: oxyCODONE 5MG TAB PO ×2 (09:15→16:18)
[2017-07-21] MEDS: ENOXAPARIN 100MG/1ML SYRINGE (J1650) SC ×2 (10:00→22:51)
[2017-07-21] MEDS ORDERED: LIDOCAINE 1% MDV 20ML VIAL As Ordered (14:21)
[2017-07-21] MEDS: SERTRALINE HCL 50 MG TAB PO (20:11)
[2017-07-22] MEDS: oxyCODONE 5MG TAB PO ×3 (00:19→22:26)
[2017-07-22] MEDS: PIPERACILLIN/TAZOBACTAM SOD 3.375 GM in APPROPRIATE DILUENT 1 EA IV ×4 (04:22→22:25)
[2017-07-22] MEDS: MORPHINE 2 MG/ML 1ML SYRINGE IV ×4 (04:23→20:21)
[2017-07-22] MEDS: SLF 3 ML SYR IV ×3 (04:23→22:27)
[2017-07-22 06:49] LABS: HEMATOCRIT 26.2 % (42.0-52.0); HEMOGLOBIN 8.2 g/dl (14.0-18.0); MEAN CORPUSCULAR HEMOGLOBIN 23.8 pg (27.0-33.0); MEAN CORPUSCULAR HGB CONC 31.3 g/dl (32.0-36.5); MEAN CORPUSCULAR VOLUME 75.9 fl (80.0-96.0); PLATELET COUNT, AUTOMATED 456 10^3/uL (150-450); RED BLOOD COUNT 3.45 10^6/uL (4.30-6.10); RED CELL DISTRIBUTION WIDTH 20.7 % (11.5-14.5); WHITE BLOOD COUNT 7.1 10^3/uL (4.0-10.0)
[2017-07-22 07:01] LABS: ANION GAP 7 MEQ/L (8-16); BLOOD UREA NITROGEN 11 MG/DL (7-18); CALCIUM LEVEL 8.2 MG/DL (8.5-10.1); CARBON DIOXIDE LEVEL 29 MEQ/L (21-32); CHLORIDE LEVEL 101 MEQ/L (98-107); CREATININE FOR GFR 0.67 MG/DL (0.70-1.30); GLOMERULAR FILTRATION RATE > 60.0 (>60); GLUCOSE, FASTING 107 MG/DL (70-100); MAGNESIUM LEVEL 2.1 MG/DL (1.8-2.4); POTASSIUM SERUM 3.7 MEQ/L (3.5-5.1); SODIUM LEVEL 137 MEQ/L (136-145)
[2017-07-22] MEDS: PANTOPRAZOLE 40MG TAB (PROTONIX) PO ×2 (08:45→20:20)
[2017-07-22] MEDS: MULTIVITAMINS/MINERALS THERAP 1 TAB PO (08:45)
[2017-07-22] MEDS: ENOXAPARIN 100MG/1ML SYRINGE (J1650) SC ×2 (10:13→22:25)
[2017-07-22] MEDS: SERTRALINE HCL 50 MG TAB PO (22:26)
[2017-07-23] MEDS: MORPHINE 2 MG/ML 1ML SYRINGE IV ×4 (00:31→19:06)
[2017-07-23] MEDS: PIPERACILLIN/TAZOBACTAM SOD 3.375 GM in APPROPRIATE DILUENT 1 EA IV ×4 (03:34→22:03)
[2017-07-23 06:09] LABS: HEMATOCRIT 27.5 % (42.0-52.0); HEMOGLOBIN 8.6 g/dl (14.0-18.0); MEAN CORPUSCULAR HEMOGLOBIN 24.1 pg (27.0-33.0); MEAN CORPUSCULAR HGB CONC 31.3 g/dl (32.0-36.5); PLATELET COUNT, AUTOMATED 553 10^3/uL (150-450); RED BLOOD COUNT 3.57 10^6/uL (4.30-6.10); RED CELL DISTRIBUTION WIDTH 20.8 % (11.5-14.5); WHITE BLOOD COUNT 9.8 10^3/uL (4.0-10.0)
[2017-07-23 06:18] LABS: ANION GAP 9 MEQ/L (8-16); BLOOD UREA NITROGEN 12 MG/DL (7-18); CALCIUM LEVEL 8.1 MG/DL (8.5-10.1); CARBON DIOXIDE LEVEL 26 MEQ/L (21-32); CHLORIDE LEVEL 103 MEQ/L (98-107); CREATININE FOR GFR 0.75 MG/DL (0.70-1.30); GLOMERULAR FILTRATION RATE > 60.0 (>60); GLUCOSE, FASTING 105 MG/DL (70-100); POTASSIUM SERUM 3.9 MEQ/L (3.5-5.1); SODIUM LEVEL 138 MEQ/L (136-145)
[2017-07-23] MEDS: oxyCODONE 5MG TAB PO ×2 (06:39→15:12)
[2017-07-23] MEDS: SLF 3 ML SYR IV ×3 (06:39→22:03)
[2017-07-23] MEDS: PANTOPRAZOLE 40MG TAB (PROTONIX) PO ×2 (10:15→22:02)
[2017-07-23] MEDS: MULTIVITAMINS/MINERALS THERAP 1 TAB PO (10:15)
[2017-07-23] MEDS: ENOXAPARIN 100MG/1ML SYRINGE (J1650) SC ×2 (10:16→22:03)
[2017-07-23] MEDS: SERTRALINE HCL 50 MG TAB PO (22:02)
[2017-07-24] MEDS: MORPHINE 2 MG/ML 1ML SYRINGE IV ×3 (00:47→19:50)
[2017-07-24] MEDS: oxyCODONE 5MG TAB PO ×2 (02:19→21:17)
[2017-07-24] MEDS: PIPERACILLIN/TAZOBACTAM SOD 3.375 GM in APPROPRIATE DILUENT 1 EA IV ×4 (04:20→21:17)
[2017-07-24] MEDS: SLF 3 ML SYR IV ×3 (05:02→21:17)
[2017-07-24 06:01] LABS: HEMATOCRIT 27.8 % (42.0-52.0); HEMOGLOBIN 8.5 g/dl (14.0-18.0); MEAN CORPUSCULAR HEMOGLOBIN 23.2 pg (27.0-33.0); MEAN CORPUSCULAR HGB CONC 30.6 g/dl (32.0-36.5); PLATELET COUNT, AUTOMATED 652 10^3/uL (150-450); RED BLOOD COUNT 3.66 10^6/uL (4.30-6.10); RED CELL DISTRIBUTION WIDTH 21.1 % (11.5-14.5); WHITE BLOOD COUNT 6.8 10^3/uL (4.0-10.0)
[2017-07-24 06:23] LABS: ANION GAP 8 MEQ/L (8-16); BLOOD UREA NITROGEN 14 MG/DL (7-18); CALCIUM LEVEL 8.4 MG/DL (8.5-10.1); CARBON DIOXIDE LEVEL 28 MEQ/L (21-32); CHLORIDE LEVEL 104 MEQ/L (98-107); GLOMERULAR FILTRATION RATE > 60.0 (>60); GLUCOSE, FASTING 90 MG/DL (70-100); MAGNESIUM LEVEL 2.2 MG/DL (1.8-2.4); POTASSIUM SERUM 3.8 MEQ/L (3.5-5.1); SODIUM LEVEL 140 MEQ/L (136-145)
[2017-07-24] MEDS: ENOXAPARIN 100MG/1ML SYRINGE (J1650) SC ×2 (09:20→21:17)
[2017-07-24] MEDS: PANTOPRAZOLE 40MG TAB (PROTONIX) PO ×2 (09:20→21:17)
[2017-07-24] MEDS: MULTIVITAMINS/MINERALS THERAP 1 TAB PO (09:20)
[2017-07-24] MEDS: SERTRALINE HCL 50 MG TAB PO (21:17)
[2017-07-24] MEDS ORDERED: oxyCODONE 5MG TAB As Ordered (21:25)
[2017-07-25] MEDS: PIPERACILLIN/TAZOBACTAM SOD 3.375 GM in APPROPRIATE DILUENT 1 EA IV ×4 (03:28→20:52)
[2017-07-25] MEDS: MORPHINE 2 MG/ML 1ML SYRINGE IV ×2 (04:11)
[2017-07-25] MEDS: SLF 3 ML SYR IV ×3 (05:18→20:53)
[2017-07-25 06:09] LABS: HEMATOCRIT 28.8 % (42.0-52.0); HEMOGLOBIN 8.8 g/dl (14.0-18.0); MEAN CORPUSCULAR HEMOGLOBIN 23.8 pg (27.0-33.0); MEAN CORPUSCULAR HGB CONC 30.6 g/dl (32.0-36.5); MEAN CORPUSCULAR VOLUME 77.8 fl (80.0-96.0); PLATELET COUNT, AUTOMATED 695 10^3/uL (150-450); RED CELL DISTRIBUTION WIDTH 21.1 % (11.5-14.5); WHITE BLOOD COUNT 7.7 10^3/uL (4.0-10.0)
[2017-07-25 06:31] LABS: ANION GAP 8 MEQ/L (8-16); BLOOD UREA NITROGEN 16 MG/DL (7-18); CALCIUM LEVEL 8.4 MG/DL (8.5-10.1); CARBON DIOXIDE LEVEL 28 MEQ/L (21-32); CHLORIDE LEVEL 105 MEQ/L (98-107); CREATININE FOR GFR 0.68 MG/DL (0.70-1.30); GLOMERULAR FILTRATION RATE > 60.0 (>60); GLUCOSE, FASTING 109 MG/DL (70-100); MAGNESIUM LEVEL 2.1 MG/DL (1.8-2.4); POTASSIUM SERUM 3.8 MEQ/L (3.5-5.1); SODIUM LEVEL 141 MEQ/L (136-145)
[2017-07-25] MEDS: PANTOPRAZOLE 40MG TAB (PROTONIX) PO ×2 (09:09→20:52)
[2017-07-25] MEDS: MULTIVITAMINS/MINERALS THERAP 1 TAB PO (09:09)
[2017-07-25] MEDS: oxyCODONE 5MG TAB PO ×2 (09:12→19:09)
[2017-07-25] MEDS: SERTRALINE HCL 50 MG TAB PO (20:53)
[2017-07-26] MEDS: PIPERACILLIN/TAZOBACTAM SOD 3.375 GM in APPROPRIATE DILUENT 1 EA IV ×2 (04:01→09:55)
[2017-07-26] MEDS: oxyCODONE 5MG TAB PO (04:02)
[2017-07-26] MEDS: SLF 3 ML SYR IV ×2 (05:51→14:39)
[2017-07-26] MEDS ORDERED: MORPHINE 2 MG/ML 1ML SYRINGE IV (08:30)
[2017-07-26] MEDS: PANTOPRAZOLE 40MG TAB (PROTONIX) PO (09:56)
[2017-07-26] MEDS: MULTIVITAMINS/MINERALS THERAP 1 TAB PO (09:56)
[2017-07-26] MEDS: ENOXAPARIN 100MG/1ML SYRINGE (J1650) SC (09:56)
== END 2017-07-26 15:00 | disposition home health service (06) | DRG 950 ==
LOC: M MSPAV 07-03 14:36 → M PCU 07-08 13:02 → M ED 16:37 → M ED INP 20:44 → M MSPAV 21:32
PROC: 0D1B0J4 Bypass Ileum to Cutaneous with Synthetic Substitute, Open Approach (ICD-10-PCS; principal; 2017-07-11 11:20)
PROC: 0DB80ZZ Excision of Small Intestine, Open Approach (ICD-10-PCS; 2017-07-11 11:20)
PROC: 0DBB0ZZ Excision of Ileum, Open Approach (ICD-10-PCS; 2017-07-11 11:20)
PROC: 0DW Gastrointestinal System, Revision (ICD-10-PCS; 2017-07-11 11:20)
PROC: 0D9N30Z Drainage of Sigmoid Colon with Drainage Device, Percutaneous Approach (ICD-10-PCS; 2017-07-11 11:20)
PROC: 0W9B30Z Drainage of Left Pleural Cavity with Drainage Device, Percutaneous Approach (ICD-10-PCS; 2017-07-11 11:20)
PROC: 0W9G30Z Drainage of Peritoneal Cavity with Drainage Device, Percutaneous Approach (ICD-10-PCS; 2017-07-11 11:20)
PROC: 30253N1 (ICD-10-PCS; 2017-07-11 11:20)
DX: J86.9 Pyothorax without fistula (principal); K63.2 Fistula of intestine; C78.7 Secondary malignant neoplasm of liver and intrahepatic bile duct; D70.9 Neutropenia, unspecified; I82.A11 Acute embolism and thrombosis of right axillary vein; E44.1 Mild protein-calorie malnutrition; K57.20 Diverticulitis of large intestine with perforation and abscess without bleeding; I27.20 Pulmonary hypertension, unspecified; C18.9 Malignant neoplasm of colon, unspecified; K94.03 Colostomy malfunction; I82.B11 Acute embolism and thrombosis of right subclavian vein; F32.9 Major depressive disorder, single episode, unspecified; Z90.49 Acquired absence of other specified parts of digestive tract; Z79.891 Long term (current) use of opiate analgesic; Z79.899 Other long term (current) drug therapy

== ENCOUNTER → 2017-08-02 | Outpatient (REF) | payer OTHER ==
[2017-08-02 15:49] LABS: CARCINOEMBRYONIC ANTIGEN 76.4 NG/ML (<2.5)
== END ==
LOC: M LAB REF 13:45
DX: C18.9 Malignant neoplasm of colon, unspecified (principal)

== ENCOUNTER → 2017-08-08 | Outpatient (CLI) | payer OTHER ==
[2017-08-08 13:07] LABS: BASO % 0.4 % (0.0-1.0); EOS # 0.2 10^3/uL (0.0-0.50); HEMATOCRIT 38.1 % (42.0-52.0); HEMOGLOBIN 11.6 g/dl (14.0-18.0); IMMATURE GRANULOCYTE % 0.3 % (0-3.0); LYMPH # 2.4 10^3/uL (1.5-4.5); LYMPH % 22.9 % (24.0-44.0); MEAN CORPUSCULAR HEMOGLOBIN 25.2 pg (27.0-33.0); MEAN CORPUSCULAR HGB CONC 30.4 g/dl (32.0-36.5); MEAN CORPUSCULAR VOLUME 82.6 fl (80.0-96.0); MONO # 0.9 10^3/uL (0.0-0.8); MONO % 8.9 % (0.0-5.0); NEUTROPHILS # 6.9 10^3/uL (1.8-7.7); NEUTROPHILS % 65.5 % (36.0-66.0); PLATELET COUNT, AUTOMATED 312 10^3/uL (150-450); RED BLOOD COUNT 4.61 10^6/uL (4.30-6.10); RED CELL DISTRIBUTION WIDTH 23.3 % (11.5-14.5); WHITE BLOOD COUNT 10.6 10^3/uL (4.0-10.0)
[2017-08-08 13:46] LABS: ALBUMIN 3.1 GM/DL (3.2-5.2); ALBUMIN/GLOBULIN RATIO 0.58 (1.00-1.93); ALKALINE PHOSPHATASE 116 U/L (45-117); ALT/SGPT 31 U/L (12-78); ANION GAP 12 MEQ/L (8-16); AST/SGOT 60 U/L (7-37); BILIRUBIN,TOTAL 0.4 MG/DL (0.2-1.0); BLOOD UREA NITROGEN 16 MG/DL (7-18); CALCIUM LEVEL 9.6 MG/DL (8.5-10.1); CARBON DIOXIDE LEVEL 24 MEQ/L (21-32); CHLORIDE LEVEL 102 MEQ/L (98-107); GLOMERULAR FILTRATION RATE > 60.0 (>60); GLUCOSE, FASTING 131 MG/DL (70-100); POTASSIUM SERUM 4.4 MEQ/L (3.5-5.1); SODIUM LEVEL 138 MEQ/L (136-145); TOTAL PROTEIN 8.4 GM/DL (6.4-8.2)
== END ==
LOC: M ADAMS 09:06
DX: R58 Hemorrhage, not elsewhere classified (principal); C18.3 Malignant neoplasm of hepatic flexure
CPT/HCPCS: 80053

== ENCOUNTER → 2017-08-16 | Outpatient (REF) | payer OTHER | LOC: M LAB REF 13:36 | DX: C18.9 Malignant neoplasm of colon, unspecified (principal) ==

== ENCOUNTER → 2017-08-23 | Outpatient (REF) | payer OTHER ==
[2017-08-23 14:20] LABS: CARCINOEMBRYONIC ANTIGEN 275.8 NG/ML (<2.5)
== END ==
LOC: M LAB REF 12:41
DX: C18.9 Malignant neoplasm of colon, unspecified (principal)

== ENCOUNTER → 2017-08-30 | Outpatient (REF) | payer OTHER ==
[2017-08-30 15:28] LABS: CARCINOEMBRYONIC ANTIGEN 324.7 NG/ML (<2.5)
== END ==
LOC: M LAB REF 13:39
DX: C18.9 Malignant neoplasm of colon, unspecified (principal)

== ENCOUNTER → 2017-09-02 | Outpatient (CLI) | payer OTHER ==
[~2017-09-02] MED LIST changes: -AMIT50TA PO; -ASPI1TAB PO; -ASPI81TA85 PO; -AZEL0.1S3; -CIPR500T89 PO; -CYCL10TA PO; -FLAG500T PO; -FLOM5CAP PO; -FLON1SPR; +GASTROGRAFIN SOLUTION 30ML (Q9963) As Ordered; +ISOVUE-370 76% 100ML VIAL (Q9967) As Ordered; -KETO10TAB PO; -METR1TAB66; -MULT1TAB10 PO; -NAPR500T2 PO; -NEOM50TA; -NORC5TAB PO; -NORCOTAB PO; -OMEP20CA3 PO; -OMEP40CA2 PO; -PERC5TAB12 PO; -PERC7.5T12 PO; -SENN1TAB2 PO; -SENO8.6T5 PO; -SIME40TA PO; -VITA100067 PO; -ZOFR4TAB3 PO
== END ==
LOC: M RAD 14:01
DX: C18.9 Malignant neoplasm of colon, unspecified (principal)
CPT/HCPCS: Q9963

== ENCOUNTER → 2017-09-26 | Outpatient (REF) | payer OTHER ==
[2017-09-27 11:52] LABS: CARCINOEMBRYONIC ANTIGEN 373.1 NG/ML (<2.5)
== END ==
LOC: M LAB REF 13:18
DX: C18.9 Malignant neoplasm of colon, unspecified (principal)
CPT/HCPCS: 82378

== ENCOUNTER → 2017-10-24 | Outpatient (REF) | payer OTHER ==
[2017-10-25 11:32] LABS: CARCINOEMBRYONIC ANTIGEN 347.8 NG/ML (<2.5)
== END ==
LOC: M LAB REF 09:51
DX: C18.3 Malignant neoplasm of hepatic flexure (principal); C78.7 Secondary malignant neoplasm of liver and intrahepatic bile duct
CPT/HCPCS: 82378

== ENCOUNTER → 2017-11-07 | Outpatient (REF) | payer OTHER ==
[2017-11-08 11:18] LABS: CARCINOEMBRYONIC ANTIGEN 290.5 NG/ML (<2.5)
== END ==
LOC: M LAB REF 10:25
DX: C18.3 Malignant neoplasm of hepatic flexure (principal); C78.7 Secondary malignant neoplasm of liver and intrahepatic bile duct

== ENCOUNTER → 2017-12-12 | Outpatient (REF) | payer OTHER ==
[2017-12-13 07:31] LABS: CARCINOEMBRYONIC ANTIGEN 83.6 NG/ML (<2.5)
== END ==
LOC: M LAB REF 18:11
DX: C18.7 Malignant neoplasm of sigmoid colon (principal); C18.3 Malignant neoplasm of hepatic flexure; C78.7 Secondary malignant neoplasm of liver and intrahepatic bile duct

== ENCOUNTER → 2017-12-20 | Outpatient (CLI) | payer OTHER | LOC: M RAD 11:03 | DX: C18.9 Malignant neoplasm of colon, unspecified (principal); Z79.899 Other long term (current) drug therapy | CPT/HCPCS: Q9963 ==

== ENCOUNTER → 2018-01-09 | Outpatient (REF) | payer OTHER ==
[2018-01-10 12:57] LABS: CARCINOEMBRYONIC ANTIGEN 57.9 NG/ML (<2.5)
== END ==
LOC: M LAB REF 13:46
DX: C18.3 Malignant neoplasm of hepatic flexure (principal)
CPT/HCPCS: 82378

== ENCOUNTER → 2018-03-06 | Outpatient (REF) | payer OTHER ==
[2018-03-07 13:48] LABS: CARCINOEMBRYONIC ANTIGEN 32.2 NG/ML (<2.5)
== END ==
LOC: M LAB REF 13:16
DX: C18.3 Malignant neoplasm of hepatic flexure (principal); C78.7 Secondary malignant neoplasm of liver and intrahepatic bile duct

== ENCOUNTER → 2018-03-20 | Outpatient (REF) | payer OTHER ==
[2018-03-21 09:19] LABS: CARCINOEMBRYONIC ANTIGEN 36.3 NG/ML (<2.5)
== END ==
LOC: M LAB REF 13:51
DX: C18.3 Malignant neoplasm of hepatic flexure (principal); C78.7 Secondary malignant neoplasm of liver and intrahepatic bile duct

== ENCOUNTER → 2018-05-30 | Outpatient (CLI) | payer OTHER | LOC: M RAD 08:32 | DX: C18.9 Malignant neoplasm of colon, unspecified (principal); C78.7 Secondary malignant neoplasm of liver and intrahepatic bile duct | CPT/HCPCS: Q9963 ==

== ENCOUNTER → 2018-10-11 | Outpatient (CLI) | payer OTHER ==
[~2018-10-11] MED LIST changes: +AMIT50TA PO; +ASPI81TA26 PO; +ASPI81TA85 PO; +AUGM875T28 PO; +AZEL0.1S3; +BUPIVACAINE HCL 0.5% 10 ML VIAL As Ordered ONE; +CIPR500T89 PO; +COLA50CA5 PO; +CYCL10TA PO; +ELIQ5TAB PO; +FLAG500T PO; +FLOM0.4C39 PO; +FLON1SPR; +GABA-1171 PO; -GASTROGRAFIN SOLUTION 30ML (Q9963) As Ordered; +HYDR-3715 PO; +ISOVUE-300 61% 100ML VIAL (Q9967) As Ordered ONE; -ISOVUE-370 76% 100ML VIAL (Q9967) As Ordered; +KETO10TAB PO; +LEVA1TAB2 PO; +LEVO500T3 PO; +LIDO2.5C15 TOP; +LIDOCAINE 2% MDV 20 ML VIAL As Ordered ONE; +LOPE2CAP PO; +LOVE0.8I SC; +METR-265; +MIRA33504 PO; +MULT1TAB10 PO; +NAPR500T2 PO; +NEOM500T; +NEXI40CA PO; +NORC5TAB PO; +OMEP20CA3 PO; +OMEP40CA2 PO; +ONDA8TAB7 PO; +OXYC-517 PO; +OXYC15TA76 PO; +PERC5TAB12 PO; +PERC7.5T12 PO; +PROC10TA4 PO; +SENN1TAB10 PO; +SENN1TAB40 PO; +SENO8.6T5 PO; +SIME40TA PO; +STIV40TA PO; +VITA100067 PO; +VITMTA PO; +XARE15TA PO; +ZOFR4TAB14 PO
--- NOTE | 2018-11-01 08:34 | REPIR ---
DATE OF PROCEDURE: 10/11/2018 ATTENDING SURGEON: Dr. Candido Plasencia ASSISTANTS: Keri Sandy and Marielena Rey. PREOPERATIVE DIAGNOSIS: Dysfunctional right subclavian vein tunneled central venous catheter with subcutaneous port. POSTOPERATIVE DIAGNOSIS: Dysfunctional right subclavian vein tunneled central venous catheter with subcutaneous port. PROCEDURE: Right tunneled central venous catheter with subcutaneous port catheter flow study. INDICATIONS: The patient is a 48-year-old male who has pain around the site of his port and will undergo a catheter flow study to ensure no leakage or dysfunction of the catheter. Risks, benefits and alternative treatment options were discussed with the patient. ANESTHESIA: None. ESTIMATED BLOOD LOSS: Minimal. IV FLUIDS: 50 mL. CONTRAST: 2 mL of Isovue-300. FLUOROSCOPY TIME: 0.1 minute. COMPLICATIONS: None. DRAINS: None. SPECIMENS: None. IMPLANTS: None. DESCRIPTION OF PROCEDURE: The patient was taken to the angiography suite, placed supine on the angiography room table and prepped and draped in a standard surgical fashion. The port in the right subclavian vein was accessed and a catheter flow study was performed showing no extravasation or abnormality. The port was de-accessed and a dressing was applied. The patient tolerated the procedure well. All instrument, sponge and needle counts were correct at the end of case. There were no complications. Dr. Plasencia was present for and directed the entire case. The patient was transferred to the holding area and subsequently discharged in stable condition.
== END | disposition home or self-care (01) ==
LOC: M IRPRO 08:07
PROVIDERS: ATTEND Internal Medicine Hematology & Oncology
DX: T82.848A Pain due to vascular prosthetic devices, implants and grafts, initial encounter (principal)
CPT/HCPCS: 36598; Q9967

== ENCOUNTER → 2018-10-17 | Outpatient (CLI) | payer OTHER ==
[~2018-10-17] MED LIST changes: -BUPIVACAINE HCL 0.5% 10 ML VIAL As Ordered ONE; +GASTROGRAFIN SOLUTION 30ML (Q9963) As Ordered ONE; -ISOVUE-300 61% 100ML VIAL (Q9967) As Ordered ONE; +ISOVUE-370 76% 100ML VIAL (Q9967) As Ordered ONE; -LIDO2.5C15 TOP; -LIDOCAINE 2% MDV 20 ML VIAL As Ordered ONE; -STIV40TA PO
--- NOTE | 2018-10-17 13:51 | REP ---
CT study of the chest with IV contrast: History: Restaging colon carcinoma. Comparison chest CT study: May 30, 2018. CT contrast dose: 100 mL of intravenous Isovue 370. CT findings: Preliminary digital magazine repairer radiograph demonstrates an [id number] catheter. Right hemidiaphragm is somewhat elevated. Axial CT images demonstrate a very small sliver of pleural fluid on the right. This is a new finding. No hilar or mediastinal adenopathy is observed. A 5 mm pulmonary nodule is again noted in the right upper lobe on today's CT page 24 of 119 in series 204. This is felt to be unchanged. No new pulmonary nodule is appreciated. No new infiltrate is seen. No pericardial effusion is seen. There is some minimal linear fibrosis in the left base unchanged. No bony destructive lesion is appreciated. Extensive hepatic metastatic disease is again noted more pronounced than on the prior study. Impression: New small right pleural effusion. 5 mm stable nodule right upper lobe. No other evidence of intrathoracic metastatic disease. Electronically Signed by Enrrique Gray MD 10/17/2018 08:39 P
--- NOTE | 2018-10-17 13:53 | REP ---
CT ABDOMEN AND PELVIS WITH IV AND ORAL CONTRAST: HISTORY: Restaging colon carcinoma. Comparison CT study is from May 30, 2018. December 20, [address] study is also reviewed. CT CONTRAST DOSE: 100 mL of intravenous Isovue [address] FINDINGS: There is progression of the extensive intrahepatic metastatic disease. Confluent metastatic lesions are seen replacing virtually all of the right lobe of the liver. The right lobe of the liver is more enlarged. Confluent metastatic nodularity occupies up to 21 cm anterior to posterior by 19 cm cranial to caudal by 12 cm medial to lateral. The liver has a 20 cm craniocaudal span in the midclavicular line. There are several new small metastatic lesions in the left lobe of the liver as well. No pancreatic lesion is seen. No splenic lesion is observed. No adrenal lesion is appreciated. The right adrenal gland is difficult to perceive due to the mass effect in the liver. Kidneys enhance symmetrically. No hydronephrosis is seen. There is opaque material in the gallbladder lumen consistent with gallstones. Right lower quadrant enterostomy is seen as before. Stable normal-sized left periaortic lymph nodes are seen. No adenopathy is appreciated. No pelvic mass or adenopathy is seen. Bone window settings show no bony destructive lesions. IMPRESSION: Progressive intrahepatic metastatic disease with significant liver enlargement and neoplastic replacement of most of the right lobe of the liver. New left lobe lesions are seen. Electronically Signed by Enrrique Gray MD 10/17/2018 08:40 P
== END ==
LOC: M RAD 09:12
PROVIDERS: ATTEND Internal Medicine Hematology & Oncology
DX: C18.9 Malignant neoplasm of colon, unspecified (principal); C78.7 Secondary malignant neoplasm of liver and intrahepatic bile duct; R91.8 Other nonspecific abnormal finding of lung field
CPT/HCPCS: 71260; 74177; Q9963; Q9967

== ENCOUNTER → 2018-11-06 | Outpatient (CLI) | payer OTHER ==
[~2018-11-06] MED LIST changes: -GASTROGRAFIN SOLUTION 30ML (Q9963) As Ordered ONE; -ISOVUE-370 76% 100ML VIAL (Q9967) As Ordered ONE; +LIDO2.5C15 TOP; +STIV40TA PO
--- NOTE | 2018-11-06 16:37 | REP ---
Right upper quadrant sonography: History: New increased bilirubin. Liver mets. Comparison CT study October 17, 2018. Sonographic findings: Scanning through the right upper quadrant of the abdomen was inhibited some degree by bowel gas. The gallbladder could not be seen. Common bile duct is 0.75 cm in greatest diameter which is the upper range of normal. No pancreatic abnormality or right renal abnormality is seen. There is no evidence of ascites. The right kidney measures 14.2 x 8.3 x 5.7 cm. Hepatic enlargement is seen with a very inhomogeneous liver and numerous solid liver lesions consistent with metastasis. The largest liver lesion is 19.8 x 20.0 x 16.6 cm. These are mixed echogenicity predominantly hyperechoic. No intrahepatic biliary ductal dilation is observed. The left lobe is relatively spared. Most of the metastatic disease is seen in the right lobe. Impression: Findings in the liver similar to recent CT study of October 17, 2018. Multiple masses consistent with metastatic disease the largest of which measures up to 20 cm in greatest diameter. CBD 7.5 mm. Gallbladder obscured by abdominal gas. No ascites seen. Electronically Signed by Enrrique Gray MD 11/06/2018 07:36 P
== END ==
LOC: M RAD 15:38
PROVIDERS: ATTEND Internal Medicine Hematology & Oncology
DX: R17 Unspecified jaundice (principal); E86.0 Dehydration

== ENCOUNTER → 2018-11-14 | Outpatient (CLI) | payer OTHER ==
[~2018-11-14] MED LIST changes: +AMOX500T2 PO; +CAPE1TAB2 PO; +LONS0.27 PO
--- NOTE | 2018-11-14 08:15 | MEDONC ---
[facility]PAT[facility] PROGRESS NOTE AGE: 48 DATE OF SERVICE: 11/13/2018 PRIMARY CARE PHYSICIAN: Dr. Esequiel Ley REASON FOR VISIT: Mr. Collins was just seen last week for progressive metastatic colon CA to the liver. The patient is down to the third or fourth line of treatment now with Regorafenib/Stivarga. Unfortunately the patient was only able to take 5 days of the Stivarga from October 31 through November 04 and he was getting sicker, he felt his abdomen was feeling worse, the liver pain was worse and he was beginning to get yellow so the Stivarga was withheld and sure enough obstructive jaundice had developed clinically and based on labs so last week the patient was sent for an urgent ultrasound of the liver followed by a biliary drainage procedure internal or external. The ultrasound was done on November 06, 2018 and it said findings are consistent with the CAT scan of October 17, but actually October 17, 2018 the patient did not have clinical obstructive jaundice, so we were basically looking for a dilated CBD and this CBD measured 7.5 mm. The patient has multiple metastatic disease to the liver was noted. There was no ascites fortunately. At that time his bilirubin had gone from 1.6 to 5.8 and the alk phos had gone up, SGOT also had gone up to 186, alk phos was 154. The patient says he has had a bad week. His pain he thinks has improved a little bit in the right upper quadrant, the protrusion of the liver seems to have improved a little bit, the hiccups have gone and he has not heard anything back from the biliary drainage procedure he said. No fevers. No chills, fortunately not yet. No leg swelling, but intake is very poor, fluid intake is extremely poor, eating is also poor. On focal examination Mr. Collins is awake, alert, oriented, very cachectic looking young gentleman, but looks much more icteric today then he did a week ago. Tongue is dry. No adenopathy. Neck no jugular venous distension. Lungs clear to auscultation except at the right base there is slightly decreased air entry. Abdomen continues to show this massive protruding nodular liver palpable because the patient is very skinny it is actually palpable. The patient continues to have his colostomy functioning and he continues to have his fistula in the suprapubic region. It is not foul smelling. No pedal edema and the skin turgor was quite dry. Performance status is 2 to 3 now on a scale of 4. Vital signs: Heart rate is 125 per minute, blood pressure 127/88, O2 sat 95% on room air, temperature 98.2. IMPRESSION: We are very concerned that Mr. Collins or paige Medeiros is 48-year-old gentleman has progressive colon CA to the liver and please see prior notes for details. The patient has moderately differentiated adenocarcinoma status post right hemicolectomy since April 07, 2017. The patient's tumor is NRAS BRAF MSI-H/MMR negative. The patient's malignancy is KRAS positive new. The patient progressed on FOLFOX and then Dr. Hill had switched him to FOLFIRI, he progressed on that and now we have not had enough time to even try the Regorafenib. The bilirubin of 10.5 makes it difficult to give many of the chemotherapy agents. Fortunately the patient is dehydrated but his renal function is still holding, we are going to try and give him some IV fluids today. The patient has an of medications for pain control and I am told today after a week's awaiting this morning that the radiology department here does not do biliary drainage procedures that is what the office staff told us which did not make much sense. Got on the phone spoke to Dr. Wilhelm in radiology who is an interventional radiologist and he says yes they do it and Dr. Wilhelm was kind enough to review the prior sonogram done a week ago to see if there was anything to drain because if the CBD was not dilated or there was no ductal dilatation anywhere there was not much they could do and he came back and said no there is nothing that could be drained last week but do another sonogram and they would reassess the situation. So we ordered another as soon as possible today ultrasound liver. The patient had not eaten all morning, he was starving he said, and he said last week when they did the ultrasound that he had eaten and they had no problem with doing the liver ultrasound even with the food on board so could he please eat so patient ate something then the warehousing technician today said no he cannot have the ultrasound because he ate so now we had to reschedule the ultrasound. The patient was given IV fluids with potassium and some magnesium supplementation and we will bring the patient back as soon as we know what the ultrasound shows. If there is no biliary drainage that can be done will see if we can send the patient down to [place] for both a second opinion and reassessment. Unreviewed DD: Jesus Rocha MD 11/14/2018 07:37 A DT: [email or web address] 11/14/2018 07:55 A CC: MD Esequiel Galvan MD
--- NOTE | 2018-11-14 08:39 | REP ---
Clinical: Jaundice. Technique: Real time kilgore scale ultrasound examination using curved array transducer. Findings: Innumerable hepatic mass lesions are identified and similar to findings on CT dated 10/17/2018 consistent with hepatic metastatic disease. Largest lesion identified in the right lobe measures approximately 22 cm maximal diameter with central necrosis. The gallbladder demonstrates wall thickening and layering sludge. No obvious biliary ductal dilatation is appreciated, but the common bile duct is incompletely evaluated. The pancreas is obscured by bowel gas and not appropriately visualized. The right kidney measures 13.8 x 7.0 x 5.9 cm without hydronephrosis with suspected 4 mm mid pole nonobstructing calculus. Small amount of free fluid noted in the right upper quadrant. Impression: 1. Diffuse hepatic metastatic disease with large necrotic lesion in the right lobe measuring 22 cm maximal diameter. 2. Gallbladder with presumed chronic wall thickening and small amount of layering sludge/gravel. Electronically Signed by Young Aguilera MD 11/14/2018 08:31 A
== END ==
LOC: M RAD 06:56
PROVIDERS: ATTEND Internal Medicine Hematology & Oncology
DX: R17 Unspecified jaundice (principal); E86.0 Dehydration